=== PATIENT | male | born 2000 | race African-American/Black ===

== ENCOUNTER 2021-06-02 22:07 | Emergency (ER) | payer MEDICAID, SELFPAY ==
[2021-06-02 22:09] VITALS: BP 136/75; PULSE 85; RESP 18; TEMP 36.8; O2SAT 100; BMI 34.4
--- NOTE | 2021-06-02 22:13 | ECG_ITS ---
Test Reason : dizziness Blood Pressure : / mmHG Vent. Rate : 068 BPM Atrial Rate : 068 BPM P-R Int : 168 ms QRS Dur : 088 ms QT Int : 368 ms P-R-T Axes : 035 070 053 degrees QTc Int : 391 ms Normal sinus rhythm with sinus arrhythmia Normal ECG No previous ECGs available Referred By: Generic ED Physician Electronically Signed By:IRAIS KAN
--- NOTE | 2021-06-02 22:55 | ED_ITS ---
HPI - General Adult General Chief complaint: Dizziness Stated complaint: feels like he's going to pass out Time Seen by Provider: 06/02/21 22:34 Source: patient Mode of arrival: ambulatory History of Present Illness HPI narrative: 20-year-old male with a past medical history of substance abuse presenting to the ED complaining of lightheadedness, nausea, tremors, and feeling awful s/p taking 10 mg Percocet this afternoon followed by 8 mg Suboxone. Admits to Percocet abuse taking about six 10 mg daily. Reports is trying to go through his own detox. Denies other illicit drugs or EtOH. Denies SI/HI, CP/SOB, abdominal pain, vomiting, diarrhea Onset (ago): hour(s) Related Data Allergies Allergy/AdvReac Type Severity Reaction Status Date / Time No Known Allergies Allergy Verified 06/02/21 22:08 [No Known Allergies*] Review of Systems Verdana 4l Review of Systems: Verdana 4d Verdana 4d Constitutional: No Fever, No Chills, No Fatigue, No Malaise ENT/Mouth: No Ear Pain, No Nasal Congestion, No sore throat, No Swallowing Difficulty Eyes: No Eye Pain, No Swelling, No Redness, No Vision Changes Cardiovascular: No Chest Pain, No SOB, No Edema, No Palpitations Respiratory: No Cough, No Dyspnea Gastrointestinal: + Nausea, No Vomiting, No Diarrhea, No Constipation, No Abdominal pain Genitourinary: No Dysuria, No Urinary Frequency, No Flank Pain, No Urinary Flow Changes, No Hesitancy Musculoskeletal: No joint pain, No Myalgias, No Joint Swelling Skin: No Skin Lesions, No rash Neuro: No Weakness, No Numbness, No Paresthesias, No Headache, +lightheaded, +tremulous Psych: No Anxiety/Panic, No Depression, No SI/HI/AH/VH, No Social Issues Yes all other systems are reviewed and are negative Neurologic: Denies Abnormal speech present PMFSH Past Medical History Attestation statement: The following information was validated with the patient. Social History Social History Advance Directives: No Physical Exam Verdana 4l Vital Signs: Verdana 4d Verdana 4d Vital Signs: Verdana 4d Verdana 4Bd Last Vital Signs Verdana 4d Computer Assembler New 4d Computer Assembler New 4d Temp 96.8 F 06/03/21 00:47 4d Pulse 66 06/03/21 00:47 New 4d Resp 16 06/03/21 00:47 BP 150/78 H 06/03/21 00:47 Pulse Ox 100 06/03/21 00:47 BMI result Body Mass Index 34.4 Const: General: cooperative, alert, awake and anxious Orientation/consciousness: patient oriented x3 Limitations: no limitations HENMT: Head: Yes normal to inspection and Yes atraumatic Ears: hearing grossly normal bilaterally General nose exam: Normal external nose present Face and sinus: Yes normal facial exam Mouth: Normal oral and palatal mucosa present Throat: Yes posterior oropharynx normal, Yes tonsils normal and Yes uvula midline Eyes: General: appearance normal, both eyes and all related structures Pupils: Equal, round and reactive pupils present and Dilated pupils bilaterally EOM: EOMs intact bilaterally Neck: Neck: Yes normal visual inspection and Yes no meningeal signs Resp: Effort & Inspection: normal respiratory effort and no respiratory distress Auscultation: clear to auscultation bilaterally, no rales, no rhonchi and no wheezes Cardio: Rate: regular rate Heart sounds: S1 normal heart sound present and S2 normal heart sound present GI: Inspection: Yes normal to inspection Palpation (GI): Soft to palpation, nontender, no guarding and not rigid Skin: Rashes: no rashes Wounds: no wounds Neuro: General: patient oriented x3, tone normal, moves all extremities, no meningeal signs, no focal motor deficits and CN's II-XI intact bilaterally Cranial nerves: Yes CN's II-XII intact bilaterally, Yes Equal, round and reactive pupils present and Yes Bilaterally intact EOM present Cognition (Neuro): normal cognition Speech: No Abnormal speech present Gait exam (Neuro): Normal gait present Extrem: General: Yes normal to inspection and Yes no pedal edema Psych: Thought content: suicidality and no homicidality Course Course Course Narrative: -0043--no leukocytosis. H&H stable. Labs otherwise unremarkable. Troponin negative. Ethanol negative -patient was evaluated by care team and given resources for detox. -0048--patient reports mild symptomatic improvement after medications -tox screen positive for opiates, fentanyl, and cocaine. Discussed worrisome signs and symptoms and strict return precautions. Patient verbalized understanding and feels safe for discharge home at this time Medical Decision Making MDM Narrative Medical decision making narrative: 20-year-old male with a past medical history of substance abuse presenting to the ED complaining of lightheadedness, nausea, tremors, and feeling awful s/p taking 10 mg Percocet this afternoon followed by 8 mg Suboxone. On exam vital signs stable, NAD/nontoxic, no focal neuro deficits. Concern for precipitated withdrawal vs substance abuse. Low concern for ACS/PE/ICH. Will rule out metabolic/infectious etiology Plan: EKG, labs, UA, drug screen, Care team consult Medical Records Medical records reviewed: Yes I reviewed the patient's medical records. Lab Data Lab results reviewed: Yes I reviewed the patient's lab results. Result diagrams: 06/02/21 23:40 06/02/21 23:40 Labs: Lab Results 06/02/21 06/02/21 06/02/21 Range/Units 23:40 23:40 23:40 WBC 9.7 (4.8-10.8) X10*3/uL RBC 5.03 (4.60-5.80) X10*6/uL Hgb 15.4 (14.0-18.0) g/dl Hct 43.4 (42.0-52.0) % MCV 86.3 (80.0-98.0) fL MCH 30.6 (27.0-33.0) pg MCHC 35.5 (31.0-36.0) g/dl RDW 11.8 (11.0-16.0) % Plt Count 237 (160-400) X10*3/uL MPV 9.6 (9.4-12.4) fL Immature Gran % (Auto) 0.3 (0.0-0.4) % Neut % (Auto) 76.4 H (45-73) % Lymph % (Auto) 14.8 L (20-40) % [place] % (Auto) 6.3 (2-11) % Eos % (Auto) 2.0 (0-4) % Baso % (Auto) 0.2 (0-2) % Lymph # (Auto) 1.4 (1.2-4.9) X10*3/uL [place] # (Auto) 0.6 (0.1-1.2) X10*3/uL Eos # (Auto) 0.2 (0.0-0.4) X10*3/uL Baso # (Auto) 0.0 (0.0-0.2) X10*3/uL Abs Immat Gran (auto) 0.03 (0.00-0.03) X10*3/uL Absolute Neuts (auto) 7.5 (2.0-8.3) x10*3/uL Absolute Nucleated RBC 0.000 (0.0-0.012) X10*3/uL Nucleated RBC % (auto) 0.0 (0.0-0.2) /100WBC Sodium 137 (135-145) mmol/L Potassium 3.9 (3.3-5.1) mmol/L Chloride 102 (96-108) mmol/L Carbon Dioxide 28 (22-29) mmol/L Anion Gap 11 L (12-20) BUN 12 (9-16) mg/dL Creatinine 0.86 (0.5-1.4) mg/dL Estim Creat Clear Calc 154.2 Estimated GFR > 60 Random Glucose 110 (60-115) mg/dL Calcium 9.5 (8.4-10.2) mg/dL Magnesium 2.1 (1.6-2.6) mg/dL Total Bilirubin 0.4 (0.0-1.0) mg/dL Direct Bilirubin 0.2 (0.0-0.5) mg/dL AST 27 (5-37) U/L ALT 31 (0-40) U/L Alkaline Phosphatase 66 (39-117) U/L Troponin I High Sens (<3.5-35.0) ng/L Total Protein 7.1 (6.5-8.0) g/dL Albumin 4.3 (3.5-5.0) g/dL Urine Color Urine Appearance Urine pH (5.0-8.0) Ur Specific Gill (1.005-1.025) Urine Protein (NEG-TRACE) MG/DL Urine Glucose (UA) (NEG) MG/DL Urine Ketones (NEG) MG/DL Urine Blood (NEG) Urine Nitrite (NEG) Ur Leukocyte Esterase (NEG) Urine Opiates Screen (Not Detect) Urine Fentanyl Screen (Not Detect) Ur Barbiturates Screen (Not Detect) Ur Phencyclidine Scrn (Not Detect) Ur Amphetamines Screen (Not Detect) U Benzodiazepines Scrn (Not Detect) Urine Cocaine Screen (Not Detect) U Marijuana (THC) Screen (Not Detect) Ethyl Alcohol < 10 mg/dL 06/02/21 06/03/21 06/03/21 Range/Units 23:40 00:52 00:52 WBC (4.8-10.8) X10*3/uL RBC (4.60-5.80) X10*6/uL Hgb (14.0-18.0) g/dl Hct (42.0-52.0) % MCV (80.0-98.0) fL MCH (27.0-33.0) pg MCHC (31.0-36.0) g/dl RDW (11.0-16.0) % Plt Count (160-400) X10*3/uL MPV (9.4-12.4) fL Immature Gran % (Auto) (0.0-0.4) % Neut % (Auto) (45-73) % Lymph % (Auto) (20-40) % [place] % (Auto) (2-11) % Eos % (Auto) (0-4) % Baso % (Auto) (0-2) % Lymph # (Auto) (1.2-4.9) X10*3/uL [place] # (Auto) (0.1-1.2) X10*3/uL Eos # (Auto) (0.0-0.4) X10*3/uL Baso # (Auto) (0.0-0.2) X10*3/uL Abs Immat Gran (auto) (0.00-0.03) X10*3/uL Absolute Neuts (auto) (2.0-8.3) x10*3/uL Absolute Nucleated RBC (0.0-0.012) X10*3/uL Nucleated RBC % (auto) (0.0-0.2) /100WBC Sodium (135-145) mmol/L Potassium (3.3-5.1) mmol/L Chloride (96-108) mmol/L Carbon Dioxide (22-29) mmol/L Anion Gap (12-20) BUN (9-16) mg/dL Creatinine (0.5-1.4) mg/dL Estim Creat Clear Calc Estimated GFR Random Glucose (60-115) mg/dL Calcium (8.4-10.2) mg/dL Magnesium (1.6-2.6) mg/dL Total Bilirubin (0.0-1.0) mg/dL Direct Bilirubin (0.0-0.5) mg/dL AST (5-37) U/L ALT (0-40) U/L Alkaline Phosphatase (39-117) U/L Troponin I High Sens < 3.5 (<3.5-35.0) ng/L Total Protein (6.5-8.0) g/dL Albumin (3.5-5.0) g/dL Urine Color YELLOW Urine Appearance CLEAR Urine pH 8.0 (5.0-8.0) Ur Specific Gill 1.010 (1.005-1.025) Urine Protein NEG (NEG-TRACE) MG/DL Urine Glucose (UA) NEG (NEG) MG/DL Urine Ketones NEG (NEG) MG/DL Urine Blood NEG (NEG) Urine Nitrite NEG (NEG) Ur Leukocyte Esterase NEG (NEG) Urine Opiates Screen POSITIVE H (Not Detect) Urine Fentanyl Screen POSITIVE H (Not Detect) Ur Barbiturates Screen Not Detected (Not Detect) Ur Phencyclidine Scrn Not Detected (Not Detect) Ur Amphetamines Screen Not Detected (Not Detect) U Benzodiazepines Scrn Not Detected (Not Detect) Urine Cocaine Screen POSITIVE H (Not Detect) U Marijuana (THC) Not Detected (Not Detect) Screen Ethyl Alcohol mg/dL ECG Data Attestation: I personally reviewed and interpreted this ECG as follows: Interpretation: EKG normal sinus rhythm with sinus arrhythmia at a rate of 68. Pr interval 168. QTC 391. No STEMI/nonischemic Discharge Plan Discharge Clinical Impression: Opiate withdrawal, Polysubstance abuse Patient Disposition: Home, Self-Care Instructions: Opioid Withdrawal (ED), Narcotic Use Disorder (ED) Additional Instructions: Your blood work is reassuring today in the emergency department. You were given resources for detox. Please avoid drug and alcohol use it can kill you Do not take opiates and Suboxone together this puts you in withdrawal If you have thoughts of hurting yourself or others please return to the ED Patient follow-up in detox as discussed today. Referrals: [facility] [Physician] - 2 days Physician,Unknown J [Primary Care Provider] - 2 days
[2021-06-02 23:45] LABS: MANUAL DIFF FLAG NO
[2021-06-02 23:46] LABS: Basophils Percent Auto 0.2 % (0-2); Eosinophils Absolute Auto 0.2 X10*3/uL (0.0-0.4); Hematocrit 43.4 % (42.0-52.0); Hemoglobin 15.4 g/dl (14.0-18.0); Imm Gran Abs Auto 0.03 X10*3/uL (0.00-0.03); Imm Gran Pct Auto 0.3 % (0.0-0.4); Lymphocytes Absolute Auto 1.4 X10*3/uL (1.2-4.9); Lymphocytes Percent Auto 14.8 % (20-40); Mean Corpuscular HGB Conc 35.5 g/dl (31.0-36.0); Mean Corpuscular Hemoglobin 30.6 pg (27.0-33.0); Mean Corpuscular Volume 86.3 fL (80.0-98.0); Mean Platelet Volume 9.6 fL (9.4-12.4); Monocytes Absolute Auto 0.6 X10*3/uL (0.1-1.2); Monocytes Percent Auto 6.3 % (2-11); Neutrophils Absolute Auto 7.5 x10*3/uL (2.0-8.3); Neutrophils Percent Auto 76.4 % (45-73); Platelet Count 237 X10*3/uL (160-400); Red Blood Count 5.03 X10*6/uL (4.60-5.80); Red Cell Distribution Width 11.8 % (11.0-16.0); White Blood Count 9.7 X10*3/uL (4.8-10.8)
--- NOTE | 2021-06-02 23:49 | HO.SUDE ---
CARE team met with pt to complete substance use disorder evaluation. Pt was pleasant on approach and visibly uncomfortable. He reported that he took suboxone today after he had taken a few 10mg percocet tablets, which resulted in precipitated withdrawal. He reported that his intention was to feel better and stop using. He reported that percocets are the only substance that he uses and that he started using them two years ago. He had been taking them by mouth in pill form, however he recently began crushing and snorting them. His use is approx 60mg daily. He denied any history of detox admissions, though cited that he went through detox while he was in [facility] after being arrested for being in possession of a firearm and substances with intent to distribute. He reported that he is connected with [facility] [address] in [place] for suboxone maintenance, though it is not likely that he has been taking it consistently or appropriately. He denied history of mental illness or psychiatric admissions. Family history is positive for addiction, specifics not discussed. He reported that he lives by himself and has no family support at this time, but his girlfriend has been actively trying to help him get into recovery. Pt was given a list of detox facilities and information for [facility] and recommended to call them or drop by the center after 9am.
[2021-06-02] MEDS: 0.9 % Sodium Chloride 1,000 ML 999 ML IV (23:57)
[2021-06-03 00:01] LABS: Ethanol < 10 mg/dL
[2021-06-03] MEDS: ondansetron HCL 4 MG/2 ML VIAL IVPUSH (00:01)
[2021-06-03] MEDS: hydrOXYzine HCL 50 MG TABLET 25 MG PO (00:01)
[2021-06-03 00:04] LABS: Alanine Aminotransferase 31 U/L (0-40); Albumin Level 4.3 g/dL (3.5-5.0); Alkaline Phosphatase 66 U/L (39-117); Anion Gap 11 (12-20); Aspartate Amino Transferase 27 U/L (5-37); Bilirubin Direct 0.2 mg/dL (0.0-0.5); Bilirubin Total 0.4 mg/dL (0.0-1.0); Blood Urea Nitrogen 12 mg/dL (9-16); Calcium 9.5 mg/dL (8.4-10.2); Carbon Dioxide 28 mmol/L (22-29); Chloride 102 mmol/L (96-108); Creatinine Clr Calc Pharmacy 154.2; Estimated Glomerular Filt Rate > 60; Glucose Random 110 mg/dL (60-115); Magnesium 2.1 mg/dL (1.6-2.6); Potassium 3.9 mmol/L (3.3-5.1); Sodium 137 mmol/L (135-145); Total Protein 7.1 g/dL (6.5-8.0)
[2021-06-03 00:08] LABS: Troponin-I High Sensitivity < 3.5 ng/L (<3.5-35.0)
[2021-06-03 00:47] VITALS: BP 150/78; PULSE 66; RESP 16; TEMP 36; O2SAT 100
[2021-06-03 01:07] LABS: Appearance Urine CLEAR; Color Urine YELLOW; Glucose Urine UA NEG (NEG); Leukocyte Esterase Urine NEG (NEG); Nitrite Urine NEG (NEG); Urine Blood NEG (NEG); Urine Ketones NEG (NEG); Urine Protein NEG (NEG-TRACE)
[2021-06-03 01:21] LABS: Amphetamine Screen Urine Not Detected (Not Detect); Barbiturates, Urine Not Detected (Not Detect); Benzodiazepines Screen Urine Not Detected (Not Detect); Cannabinoid Screen Urine Not Detected (Not Detect); Cocaine Screen Urine POSITIVE (Not Detect); Fentanyl, urine POSITIVE (Not Detect); Opiate Screen Urine POSITIVE (Not Detect); Phencyclidine Screen Urine Not Detected (Not Detect)
[2021-06-03] MEDS: diphenhydrAMINE HCL 50 MG/ML VIAL 25 MG IVPUSH (01:24)
== END 2021-06-03 02:21 | disposition home or self-care (01) ==
PROVIDERS: Physician Assistant; Emergency Provider Emergency Medicine
DX: F11.13 Opioid abuse with withdrawal (principal); F19.10 Other psychoactive substance abuse, uncomplicated
CPT/HCPCS: 36415; 80048; 80076; 80307; 81003; 82077; 83735; 84484; 85025; 93005; 96361; 96374; 96375; 99283; 99284; J1200; J2405

== ENCOUNTER 2022-04-30 06:27 | Emergency (ER) | payer MEDICAID, SELFPAY ==
[2022-04-30 06:36] VITALS: BP 144/86; PULSE 112; O2SAT 98
--- NOTE | 2022-04-30 06:40 | ECG_ITS ---
Test Reason : PALPITATIONS Blood Pressure : / mmHG Vent. Rate : 094 BPM Atrial Rate : 094 BPM P-R Int : 162 ms QRS Dur : 088 ms QT Int : 346 ms P-R-T Axes : 066 066 023 degrees QTc Int : 432 ms Normal sinus rhythm Normal ECG When compared with ECG of 02-JUN-2021 22:12, No significant change was found Referred By: Generic ED Physician Electronically Signed By:DA PATEL MD
[2022-04-30 06:41] VITALS: BP 147/78; PULSE 99; RESP 16; TEMP 36.7; O2SAT 96; BMI 39.1
--- NOTE | 2022-04-30 07:16 | ED_ITS ---
HPI - Chest Pain General Chief Complaint: Chest Pain Stated Complaint: palpations chest pain Time Seen by Provider: 04/30/22 07:09 Source: patient Mode of arrival: EMS History of Present Illness HPI narrative: This is a 21-year-old male who uses cocaine and states that he used more than usual this morning at approximately 06:00 as stated that afterwards he developed chest pain with palpitations but denies any shortness of breath are weakness. Patient states he is feeling much better and has had complete resolution of symptoms at the time of my interview. Related Data Allergies Allergy/AdvReac Type Severity Reaction Status Date / Time No Known Allergies Allergy Verified 06/02/21 22:08 [No Known Allergies*] Review of Systems Review of Systems: Pertinent positives and negatives as stated in HPI. [facility] Past Medical History Source: nursing notes reviewed Social History Social History Advance Directives: No Advance Directives Information Provided: Yes Physical Exam Vital Signs: Vital Signs: Last Vital Signs Temp 98.0 F 04/30/22 06:41 Pulse 99 04/30/22 06:41 Resp 16 04/30/22 06:41 BP 147/78 H 04/30/22 06:41 Pulse Ox 96 04/30/22 06:41 O2 Del Method 04/30/22 06:41 BMI result Body Mass Index 39.1 VITAL SIGNS: Reviewed. GENERAL: Well developed, well nourished, in no acute distress. HEAD: Normocephalic/atraumatic EYES: PERRLA, EOMI EARS: Ext canals without abnormality OROPHARYNX: no oral lesions noted, posterior pharynx clear LUNGS: Normal breath sounds. No adventitious sounds or accessory muscle use. SpO2<96> CARDIOVASCULAR: Regular rate and rhythm without noted murmurs ABDOMEN: Soft, non-tender, non-distended with bowel sounds. MUSCULOSKELETAL: No tenderness, deformities, or effusions noted on gross inspection. EXTREMITIES: No cyanosis, clubbing or edema. SKIN: Inspection of the skin reveals no rashes NEUROLOGIC: Alert and oriented x 4. Strength and sensation to light touch were grossly intact x 4. Medical Decision Making Medical Decision Making MDM Narrative: 21-year-old male with cocaine associated chest pain/palpitations, EKG does not show any acute abnormalities on my interpretation, troponin is not detectable and patient has had complete resolution of his symptoms. He denies any SI and is discharged home in stable condition. Lab Data MDM Lab Attestation statement: I reviewed the patient's lab results. As discussed above Labs: Lab Results 04/30/22 Range/Units 08:26 Troponin I High Sens < 3.5 (<3.5-35.0) ng/L Independent Interpretation I performed an independent interpretation of an: EKG Interpretation: Normal sinus rhythm, HR-94, no STEMI, MN/QRS/QTC is within normal limits. Discharge Plan Discharge Clinical Impression: Cocaine use disorder, mild, abuse, Heart palpitations Patient Disposition: Home, Self-Care Instructions: Heart Palpitations (ED), Cocaine Abuse (ED) Additional Instructions: Stop using cocaine this will improve your incidence of chest pain and palpitations. Return to the ER for worsening symptoms.
[2022-04-30 09:06] LABS: Troponin-I High Sensitivity < 3.5 ng/L (<3.5-35.0)
== END 2022-04-30 09:55 | disposition home or self-care (01) ==
PROVIDERS: Emergency Provider Student in an Organized Health Care Education/Training Program
DX: R07.89 Other chest pain (principal); F14.10 Cocaine abuse, uncomplicated; R00.2 Palpitations
CPT/HCPCS: 36415; 84484; 93005; 99283

== ENCOUNTER 2022-09-24 14:18 | Outpatient (REF) | payer MEDICAID, SELFPAY | END 2022-09-24 14:19 | disposition home or self-care (01) | LOC: HO.LNP 14:18 | PROVIDERS: Visit Provider Nurse Practitioner Psychiatric/Mental Health | DX: F11.20 Opioid dependence, uncomplicated (principal) | CPT/HCPCS: 80305; 80348; 80362 ==

== ENCOUNTER → 2022-10-04 10:33 | Outpatient (BNVA) | payer MEDICAID, SELFPAY | PROVIDERS: Visit Provider Nurse Practitioner Psychiatric/Mental Health | DX: Z51.81 Encounter for therapeutic drug level monitoring (principal); F11.20 Opioid dependence, uncomplicated | CPT/HCPCS: 80305; 99212 ==

== ENCOUNTER → 2022-10-29 10:09 | Outpatient (BNVA) | payer MEDICAID, SELFPAY | PROVIDERS: Visit Provider Nurse Practitioner Psychiatric/Mental Health | DX: F11.20 Opioid dependence, uncomplicated (principal); Z51.81 Encounter for therapeutic drug level monitoring; Z79.899 Other long term (current) drug therapy | CPT/HCPCS: 80305; 99212 ==

== ENCOUNTER 2022-11-12 13:33 | Outpatient (AMB) | payer MEDICAID, SELFPAY ==
--- NOTE | 2022-11-12 13:33 | MHC.OFFVIS ---
Intake Vital Signs 11/12/22 13:39 BP 122/70 Blood Pressure Location Lt radial Position Sitting Pulse 86 Pulse Source Pulse Oximeter Pulse Oximetry (%) 97 Oxygen Delivery Method Room Air Intake Visit Reasons: MAT Visit Intake Note: the patient presents for a mat visit Upholstery Covers Inspector Required: No Allergies No Known Allergies [No Known Allergies*] Allergy (Verified 11/12/22 13:40) Do you need a note to return to daycare/school/sports/work: No HPI MAT Visit HPI Details patient presents for OUD treatment follow up Doing well with current dose, denies any side effects or cravings Has been spending time fishing no questions or concerns at this time Review of Systems Const Reports as per HPI and Reports no additional complaints Physical Exam Vital Signs: Last Vital Signs Pulse 86 11/12/22 13:39 BP 122/70 11/12/22 13:39 Pulse Ox 97 11/12/22 13:39 Oxygen Delivery Method Room Air 11/12/22 13:39 Const General: cooperative, healthy appearing and no acute distress Psych Appearance: grossly normal Speech and movement: Clear speech present Affect: normal affect Thought process: Normal thought process present Thought content: Normal thought content present Insight: Fair insight present (Psych) Judgement: Fair judgement present (Psych) Assessment & Plan Assessment & Plan (1) Opioid use disorder: Code(s): F11.90 - Opioid use, unspecified, uncomplicated Plan: Continue Suboxone at current dose Follow up 3 weeks Medications: Refilled buprenorphine-naloxone 8-2 mg (Suboxone) 1 film sublingual DAILY 21 ea 0RF Coding Level of Care Code Est Pt Level 3 (38349) Diagnoses Opioid use disorder F11.90
[2022-11-12 13:39] VITALS: BP 122/70; PULSE 86; O2SAT 97
== END 2022-11-12 14:10 | disposition home or self-care (01) ==
LOC: HO.HCC 13:33
PROVIDERS: Visit Provider Nurse Practitioner Psychiatric/Mental Health
DX: F11.90 Opioid use, unspecified, uncomplicated (principal)
CPT/HCPCS: 99213

== ENCOUNTER → 2022-11-12 13:33 | Outpatient (BNVA) | payer MEDICAID, SELFPAY | PROVIDERS: Visit Provider Nurse Practitioner Psychiatric/Mental Health | DX: Z51.81 Encounter for therapeutic drug level monitoring (principal); F11.20 Opioid dependence, uncomplicated | CPT/HCPCS: 99213 ==

== ENCOUNTER 2022-12-03 13:44 | Outpatient (AMB) | payer MEDICAID, SELFPAY ==
--- NOTE | 2022-12-03 13:55 | A.OFFVIS_ITS ---
Intake Vital Signs 12/03/22 13:59 BP 128/70 Blood Pressure Location Lt brachial Position Sitting Pulse 89 Pulse Oximetry (%) 97 Intake Visit Reasons: MAT Visit Allergies No Known Allergies [No Known Allergies*] Allergy (Verified 11/12/22 13:40) HPI MAT Visit HPI Details Pt presents for OUD treatment follow up Currently being prescribed Suboxone 8mg QD Denies any side effects related to medication Continues to do well with recovery No questions or concerns at this time Review of Systems Const Reports as per HPI and Reports no additional complaints Physical Exam Vital Signs: Last Vital Signs Pulse 89 12/03/22 13:59 BP 128/70 12/03/22 13:59 Pulse Ox 97 12/03/22 13:59 Const General: cooperative, healthy appearing and no acute distress Psych Appearance: grossly normal Speech and movement: Clear speech present Affect: normal affect Thought process: Normal thought process present Thought content: Normal thought content present Insight: Fair insight present (Psych) Judgement: Fair judgement present (Psych) Results AMB 14 Panel Urine Drug Screen Urine Marijuana (THC) Negative Last Edit by Fabi Hernandez RN on 12/03/22 14:2 8 Urine Cocaine Negative Last Edit by Fabi Hernandez RN on 12/03/22 14:28 Urine Morphine Negative Last Edit by Fabi Hernandez RN on 12/03/22 14:28 Urine Methamphetamine Negative Last Edit by Fabi Hernandez RN on 12/03/22 14:2 8 Urine Amphetamine Negative Last Edit by Fabi Hernandez RN on 12/03/22 14:28 Urine Benzodiazepine Negative Last Edit by Fabi Hernandez RN on 12/03/22 14:30 Urine Benzodiazepine previously reported as Positive Fabi Hernandez 12/03/22 14:30 Urine Barbiturates Negative Last Edit by Fabi Hernandez RN on 12/03/22 14:28 Urine Methadone Negative Last Edit by Fabi Hernandez RN on 12/03/22 14:28 Urine Buprenorphine Positive Last Edit by Fabi Hernandez RN on 12/03/22 14:28 Urine Tricyclic Antidepressant Negative Last Edit by Fabi Hernandez RN on 12/03/22 14:28 Urine MDMA Negative Last Edit by Fabi Hernandez RN on 12/03/22 14:28 Urine Oxycodone Negative Last Edit by Fabi Hernandez RN on 12/03/22 14:28 Urine Phencyclidine Negative Last Edit by Fabi Hernandez RN on 12/03/22 14:28 Urine Propoxyphene Negative Last Edit by Fabi Hernandez RN on 12/03/22 14:28 Results Reviewed Results Reviewed: Laboratory Last Values POC Urine Buprenorphine Positive 12/03/22 14:27 POC Urine Morphine Negative 12/03/22 14:27 POC Urine Oxycodone Negative 12/03/22 14:27 POC Urine Methadone Negative 12/03/22 14:27 POC Urine Propoxyphene Negative 12/03/22 14:27 POC Urine Barbiturates Negative 12/03/22 14:27 POC U Tricyclic Antidpr Negative 12/03/22 14:27 POC Urine PCP Negative 12/03/22 14:27 POC Ur Amphetamines Negative 12/03/22 14:27 POC Ur Methamphetamine Negative 12/03/22 14:27 POC Urine MDMA Negative 12/03/22 14:27 POC Ur Benzodiazepine Negative 12/03/22 14:27 POC Urine Cocaine Negative 12/03/22 14:27 POC Ur Marijuana (THC) Negative 12/03/22 14:27 Assessment & Plan Assessment & Plan (1) Opioid use disorder: Code(s): F11.90 - Opioid use, unspecified, uncomplicated Plan: * Continue Suboxone at current dose * Follow up 3 weeks Orders: Orders AMB 14 Panel Urine Drug Screen Today Z51.81 - Encounter for therapeutic drug level monitoring Medications: Refilled buprenorphine-naloxone 8-2 mg (Suboxone) 1 film sublingual DAILY 21 ea 0RF Coding Level of Care Code Est Pt Level 3 (35201) Diagnoses Opioid use disorder F11.90
[2022-12-03 13:59] VITALS: BP 128/70; PULSE 89; O2SAT 97
== END 2022-12-03 14:13 | disposition home or self-care (01) ==
LOC: HO.HCC 13:44
PROVIDERS: Visit Provider Nurse Practitioner Psychiatric/Mental Health
DX: Z51.81 Encounter for therapeutic drug level monitoring (principal); F11.90 Opioid use, unspecified, uncomplicated
CPT/HCPCS: 99213

== ENCOUNTER → 2022-12-03 13:44 | Outpatient (BNVA) | payer MEDICAID, SELFPAY | PROVIDERS: Visit Provider Nurse Practitioner Psychiatric/Mental Health | DX: Z51.81 Encounter for therapeutic drug level monitoring (principal); F11.20 Opioid dependence, uncomplicated | CPT/HCPCS: 80305; 99213 ==

== ENCOUNTER 2022-12-24 13:27 | Outpatient (AMB) | payer MEDICAID, SELFPAY ==
--- NOTE | 2022-12-24 13:28 | A.OFFVIS_ITS ---
Intake Vital Signs 12/24/22 13:36 BP 128/72 Blood Pressure Location Lt radial Position Sitting Pulse 80 Pulse Source Pulse Oximeter Pulse Oximetry (%) 96 Oxygen Delivery Method Room Air Intake Visit Reasons: MAT Visit Intake Note: The patient presents for a mat visit Security Dispatcher Required: No Allergies No Known Allergies [No Known Allergies*] Allergy (Verified 12/24/22 13:30) Do you need a note to return to daycare/school/sports/work: No HPI MAT Visit HPI Details Patient presents for follow-up. Currently prescribed Suboxone 8 mg daily. Doing well recovery. No questions or concerns at this time. Discussing some relationship issues and possibility of moving back in with his mother. Otherwise patient is doing very well Review of Systems Const Reports as per HPI and Reports no additional complaints Physical Exam Vital Signs: Last Vital Signs Pulse 80 12/24/22 13:36 BP 128/72 12/24/22 13:36 Pulse Ox 96 12/24/22 13:36 Oxygen Delivery Method Room Air 12/24/22 13:36 Const General: cooperative, healthy appearing and no acute distress Psych Appearance: grossly normal Speech and movement: Clear speech present Affect: normal affect Thought process: Normal thought process present Thought content: Normal thought content present Insight: Fair insight present (Psych) Judgement: Fair judgement present (Psych) Results AMB 14 Panel Urine Drug Screen Urine Marijuana (THC) Negative Last Edit by Radha Jameson CMA on 12/24/22 13:38 Urine Cocaine Negative Last Edit by Radha Jameson CMA on 12/24/22 13:38 Urine Morphine Negative Last Edit by Radha Jameson CMA on 12/24/22 13:38 Urine Methamphetamine Negative Last Edit by Radha Jameson CMA on 12/24/22 13:38 Urine Amphetamine Negative Last Edit by Radha Jameson CMA on 12/24/22 13:3 8 Urine Benzodiazepine Negative Last Edit by Radha Jameson CMA on 12/24/22 13:38 Urine Barbiturates Negative Last Edit by Radha Jameson CMA on 12/24/22 13: 38 Urine Methadone Negative Last Edit by Radha Jameson CMA on 12/24/22 13:38 Urine Buprenorphine Positive Last Edit by Radha Jameson CMA on 12/24/22 13 :38 Urine Tricyclic Antidepressant Negative Last Edit by Radha Jameson CMA on 12/24/22 13:38 Urine MDMA Negative Last Edit by Radha Jameson CMA on 12/24/22 13:38 Urine Oxycodone Negative Last Edit by Radha Jameson CMA on 12/24/22 13:38 Urine Phencyclidine Negative Last Edit by Radha Jameson CMA on 12/24/22 13 :38 Urine Propoxyphene Negative Last Edit by Radha Jameson CMA on 12/24/22 13: 38 Results Reviewed Results Reviewed: Laboratory Last Values POC Urine Buprenorphine Positive 12/24/22 13:30 POC Urine Morphine Negative 12/24/22 13:30 POC Urine Oxycodone Negative 12/24/22 13:30 POC Urine Methadone Negative 12/24/22 13:30 POC Urine Propoxyphene Negative 12/24/22 13:30 POC Urine Barbiturates Negative 12/24/22 13:30 POC U Tricyclic Antidpr Negative 12/24/22 13:30 POC Urine PCP Negative 12/24/22 13:30 POC Ur Amphetamines Negative 12/24/22 13:30 POC Ur Methamphetamine Negative 12/24/22 13:30 POC Urine MDMA Negative 12/24/22 13:30 POC Ur Benzodiazepine Negative 12/24/22 13:30 POC Urine Cocaine Negative 12/24/22 13:30 POC Ur Marijuana (THC) Negative 12/24/22 13:30 Assessment & Plan Assessment & Plan (1) Opioid use disorder: Code(s): F11.90 - Opioid use, unspecified, uncomplicated Plan: * Continue Suboxone at current dose * Follow up 4 weeks Orders: Orders AMB 14 Panel Urine Drug Screen Today Z51.81 - Encounter for therapeutic drug level monitoring Medications: Refilled buprenorphine-naloxone 8-2 mg (Suboxone) 1 film sublingual DAILY 30 ea 0RF Coding Level of Care Code Est Pt Level 3 (41610) Diagnoses Opioid use disorder F11.90
[2022-12-24 13:36] VITALS: BP 128/72; PULSE 80; O2SAT 96
== END 2022-12-24 13:56 | disposition home or self-care (01) ==
LOC: HO.HCC 13:27
PROVIDERS: Visit Provider Nurse Practitioner Psychiatric/Mental Health
DX: F11.90 Opioid use, unspecified, uncomplicated (principal); Z51.81 Encounter for therapeutic drug level monitoring
CPT/HCPCS: 99213

== ENCOUNTER → 2022-12-24 13:27 | Outpatient (BNVA) | payer MEDICAID, SELFPAY | PROVIDERS: Visit Provider Nurse Practitioner Psychiatric/Mental Health | DX: F11.20 Opioid dependence, uncomplicated (principal) | CPT/HCPCS: 80305; 99212; 99213 ==

== ENCOUNTER 2023-01-24 10:12 | Outpatient (AMB) | payer MEDICAID, SELFPAY ==
[2023-01-24 10:44] VITALS: BP 118/80; PULSE 76; O2SAT 97
--- NOTE | 2023-01-24 10:44 | A.OFFVIS_ITS ---
Intake Vital Signs 01/24/23 10:44 BP 118/80 Blood Pressure Location Lt brachial Position Sitting Pulse 76 Pulse Oximetry (%) 97 Intake Visit Reasons: MAT Visit Allergies No Known Allergies [No Known Allergies*] Allergy (Verified 12/24/22 13:30) HPI MAT Visit HPI Details Pt presents for OUD treatment follow up Currently being prescribed Suboxone 8mg QD Denies any side effects related to medication Continues to do well with recovery no questions or concerns Review of Systems Const Reports as per HPI and Reports no additional complaints Physical Exam Vital Signs: Last Vital Signs Pulse 76 01/24/23 10:44 BP 118/80 01/24/23 10:44 Pulse Ox 97 01/24/23 10:44 Const General: cooperative, healthy appearing and no acute distress Psych Appearance: grossly normal Speech and movement: Clear speech present Affect: normal affect Thought process: Normal thought process present Thought content: Normal thought content present Insight: Fair insight present (Psych) Judgement: Good judgement present (Psych) Assessment & Plan Assessment & Plan (1) Opioid use disorder: Code(s): F11.90 - Opioid use, unspecified, uncomplicated Plan: * Continue Suboxone at current dose * Follow up 4 weeks Medications: Refilled buprenorphine-naloxone 8-2 mg (Suboxone) 1 film sublingual DAILY 30 ea 0RF Coding Level of Care Code Est Pt Level 3 (93055) Diagnoses Opioid use disorder F11.90
== END 2023-01-24 11:13 | disposition home or self-care (01) ==
LOC: HO.HCC 10:12
PROVIDERS: Visit Provider Nurse Practitioner Psychiatric/Mental Health
DX: F11.90 Opioid use, unspecified, uncomplicated (principal)
CPT/HCPCS: 99213

== ENCOUNTER → 2023-01-24 10:12 | Outpatient (BNVA) | payer MEDICAID, SELFPAY | PROVIDERS: Visit Provider Nurse Practitioner Psychiatric/Mental Health | DX: Z51.81 Encounter for therapeutic drug level monitoring (principal); F11.20 Opioid dependence, uncomplicated | CPT/HCPCS: 99212 ==

== ENCOUNTER 2023-02-21 11:16 | Outpatient (AMB) | payer MEDICAID, SELFPAY ==
--- NOTE | 2023-02-21 11:16 | A.OFFVIS_ITS ---
Intake Vital Signs 02/21/23 11:21 BP 122/76 Blood Pressure Location Lt radial Position Sitting Pulse 84 Pulse Source Pulse Oximeter Pulse Oximetry (%) 97 Oxygen Delivery Method Room Air Intake Visit Reasons: MAT Visit Intake Note: the patient presents for a mat visit Stand Up Comedian Required: No Allergies No Known Allergies [No Known Allergies*] Allergy (Verified 02/21/23 11:21) Do you need a note to return to daycare/school/sports/work: No HPI MAT Visit HPI Details Pt presents for OUD treatment follow up Currently being prescribed Suboxone 8mg QD Denies any side effects related to medication, denies constipation. Reports he has been fishing a lot. States he likes to go alone, and that this is his stress relief. Continues to do well with recovery no questions or concerns Review of Systems Const Reports as per HPI and Reports no additional complaints Physical Exam Vital Signs: Last Vital Signs Pulse 84 02/21/23 11:21 BP 122/76 02/21/23 11:21 Pulse Ox 97 02/21/23 11:21 Oxygen Delivery Method Room Air 02/21/23 11:21 Const General: healthy appearing, no acute distress and well developed Orientation/consciousness: patient oriented x3 Resp Effort & Inspection: normal respiratory effort Skin General skin exam: no rashes or lesions noted Neuro General: patient oriented x3 Psych Appearance: grossly normal and well kempt Speech and movement: Clear speech present Affect: normal affect Thought content: Normal thought content present Assessment & Plan Assessment & Plan (1) Opioid use disorder: Code(s): F11.90 - Opioid use, unspecified, uncomplicated Plan: continue suboxone at current dose follow up 4 weeks Medications: Refilled buprenorphine-naloxone 8-2 mg (Suboxone) 1 film sublingual DAILY 30 ea 0RF Coding Level of Care Code Est Pt Level 3 (94343) Diagnoses Opioid use disorder F11.90
[2023-02-21 11:21] VITALS: BP 122/76; PULSE 84; O2SAT 97
== END 2023-02-21 11:30 | disposition home or self-care (01) ==
PROVIDERS: Visit Provider Nurse Practitioner Family
DX: F11.90 Opioid use, unspecified, uncomplicated (principal)
CPT/HCPCS: 99213

== ENCOUNTER → 2023-02-21 11:16 | Outpatient (BNVA) | payer MEDICAID, SELFPAY | PROVIDERS: Visit Provider Nurse Practitioner Psychiatric/Mental Health | DX: Z51.81 Encounter for therapeutic drug level monitoring (principal); F11.20 Opioid dependence, uncomplicated | CPT/HCPCS: 99212 ==

== ENCOUNTER 2023-04-11 10:53 | Outpatient (AMB) | payer MEDICAID, SELFPAY ==
--- NOTE | 2023-04-11 10:54 | A.OFFVIS_ITS ---
Intake Vital Signs 04/11/23 10:58 BP 116/70 Blood Pressure Location Lt radial Position Sitting Pulse 91 Pulse Source Pulse Oximeter Pulse Oximetry (%) 96 Oxygen Delivery Method Room Air Intake Visit Reasons: MAT Visit Intake Note: the patient presents for a mat visit Computer Training Specialist Required: No Allergies No Known Allergies [No Known Allergies*] Allergy (Verified 04/11/23 10:59) Do you need a note to return to daycare/school/sports/work: No HPI MAT Visit HPI Details Patient presents for CHRISTINE treatment and follow up Reports his insurance recently lapsed on him, states it is all set now. Reports that is why he missed appt last month Has no concerns concerns for recovery at this time Tolerating suboxone dose, denies side effects Review of Systems Const Reports as per HPI Physical Exam Vital Signs: Last Vital Signs Pulse 91 04/11/23 10:58 BP 116/70 04/11/23 10:58 Pulse Ox 96 04/11/23 10:58 Oxygen Delivery Method Room Air 04/11/23 10:58 Const General: cooperative and healthy appearing Resp Effort & Inspection: normal respiratory effort Skin General skin exam: no rashes or lesions noted Psych Appearance: grossly normal Mental Status: mental status grossly normal Affect: normal affect Attitude: cooperative Thought process: Normal thought process present Assessment & Plan Assessment & Plan (1) Opioid use disorder: Code(s): F11.90 - Opioid use, unspecified, uncomplicated Plan: Continue suboxone at current dose Follow up 4 weeks Call [facility] with questions, concerns, or for earlier appointment Medications: Refilled buprenorphine-naloxone 8-2 mg (Suboxone) 1 film sublingual DAILY 30 ea 0RF Coding Level of Care Code Est Pt Level 3 (22066) Diagnoses Opioid use disorder F11.90
[2023-04-11 10:58] VITALS: BP 116/70; PULSE 91; O2SAT 96
== END 2023-04-11 11:05 | disposition home or self-care (01) ==
PROVIDERS: Visit Provider Nurse Practitioner Family
DX: F11.90 Opioid use, unspecified, uncomplicated (principal)
CPT/HCPCS: 99213

== ENCOUNTER → 2023-04-11 10:53 | Outpatient (BNVA) | payer MEDICAID, SELFPAY | PROVIDERS: Visit Provider Nurse Practitioner Family | DX: F11.20 Opioid dependence, uncomplicated (principal) | CPT/HCPCS: 99212 ==

== ENCOUNTER 2023-05-10 11:06 | Outpatient (AMB) | payer MEDICAID, SELFPAY ==
--- NOTE | 2023-05-10 11:17 | MHC.AM.SUB ---
Intake Vital Signs 05/10/23 11:18 BP 120/72 Blood Pressure Location Lt brachial Position Sitting Pulse 93 Pulse Source Pulse Oximeter Pulse Oximetry (%) 95 Oxygen Delivery Method Room Air Intake Visit Reasons: MAT Visit Allergies No Known Allergies [No Known Allergies*] Allergy (Verified 04/11/23 10:59) HPI MAT Visit HPI Details Patient presents for CHRISTINE treatment and follow up Denies any concerns today for recovery, denies any cravings Tolerating suboxone well- taking 8mg daily, denies concern for side effects at this time Patient quiet and mildly difficult to engage in conversation Reports his holidays went well and were spent with family Review of Systems Const Reports as per HPI Physical Exam Const General: cooperative and healthy appearing Resp Effort & Inspection: normal respiratory effort Psych Appearance: grossly normal Mental Status: mental status grossly normal Speech and movement: Normal speech and movement present Assessment & Plan Assessment & Plan (1) Opioid use disorder: Code(s): F11.90 - Opioid use, unspecified, uncomplicated Plan: -Cont suboxone same dose, refilled. -Lab work ordered as he has not had done in 2 years -Follow up 4 weeks Orders: Orders Complete Blood Count Auto Diff Today F11.90 - Opioid use, unspecified, uncomplicated Comprehensive Met. Panel Today F11.90 - Opioid use, unspecified, uncomplicated Medications: Refilled buprenorphine-naloxone 8-2 mg (Suboxone) 1 film sublingual DAILY 30 ea 0RF Coding Level of Care Code Est Pt Level 3 (97627) Diagnoses Opioid use disorder F11.90
[2023-05-10 11:18] VITALS: BP 120/72; PULSE 93; O2SAT 95
== END 2023-05-10 11:43 | disposition home or self-care (01) ==
PROVIDERS: Visit Provider Nurse Practitioner Family
DX: F11.90 Opioid use, unspecified, uncomplicated (principal)
CPT/HCPCS: 99213

== ENCOUNTER 2023-05-10 11:06 | Outpatient (REF) | payer MEDICAID, SELFPAY ==
[2023-05-10 11:54] LABS: MANUAL DIFF FLAG NO
[2023-05-10 12:49] LABS: Basophils Percent Auto 0.4 % (0-2); Eosinophils Absolute Auto 0.1 X10*3/uL (0.0-0.4); Eosinophils Percent Auto 0.7 % (0-4); Hematocrit 46.3 % (42.0-52.0); Imm Gran Abs Auto 0.04 X10*3/uL (0.00-0.03); Imm Gran Pct Auto 0.5 % (0.0-0.4); Lymphocytes Absolute Auto 2.2 X10*3/uL (1.2-4.9); Lymphocytes Percent Auto 29.3 % (20-40); Mean Corpuscular HGB Conc 34.6 g/dl (31.0-36.0); Mean Corpuscular Hemoglobin 30.1 pg (27.0-33.0); Mean Platelet Volume 10.2 fL (9.4-12.4); Monocytes Absolute Auto 0.5 X10*3/uL (0.1-1.2); Monocytes Percent Auto 6.3 % (2-11); Neutrophils Absolute Auto 4.7 x10*3/uL (2.0-8.3); Neutrophils Percent Auto 62.8 % (45-73); Platelet Count 251 X10*3/uL (160-400); Red Blood Count 5.32 X10*6/uL (4.60-5.80); White Blood Count 7.4 X10*3/uL (4.8-10.8)
[2023-05-10 13:33] LABS: Alanine Aminotransferase 45 U/L (0-40); Albumin Level 4.2 g/dL (3.5-5.0); Alkaline Phosphatase 78 U/L (39-117); Anion Gap 8 (12-20); Aspartate Amino Transferase 25 U/L (5-37); Bilirubin Total 0.5 mg/dL (0.0-1.0); Blood Urea Nitrogen 10 mg/dL (9-16); Calcium 9.3 mg/dL (8.4-10.2); Carbon Dioxide 28 mmol/L (22-29); Chloride 105 mmol/L (96-108); Estimated Glomerular Filt Rate > 60; Glucose Random 90 mg/dL (60-115); Potassium 3.7 mmol/L (3.3-5.1); Sodium 137 mmol/L (135-145); Total Protein 7.6 g/dL (6.5-8.0)
== END 2023-05-10 11:07 | disposition home or self-care (01) ==
LOC: HO.LAB 11:06
PROVIDERS: Visit Provider Nurse Practitioner Family
DX: F11.20 Opioid dependence, uncomplicated (principal); Z51.81 Encounter for therapeutic drug level monitoring; Z79.899 Other long term (current) drug therapy
CPT/HCPCS: 36415; 80053; 85025; 99212

== ENCOUNTER 2023-05-12 12:13 | Emergency (ER) | payer MEDICAID, SELFPAY ==
[2023-05-12 12:17] VITALS: BP 135/75; PULSE 85; O2SAT 100
--- NOTE | 2023-05-12 12:19 | ECG_ITS ---
Test Reason : chest pain Blood Pressure : / mmHG Vent. Rate : 076 BPM Atrial Rate : 076 BPM P-R Int : 168 ms QRS Dur : 090 ms QT Int : 374 ms P-R-T Axes : 064 055 030 degrees QTc Int : 420 ms Normal sinus rhythm with sinus arrhythmia Normal ECG When compared with ECG of 30-APR-2022 06:32, No significant change was found Referred By: Generic ED Physician Electronically Signed By:DA PATEL MD
== END 2023-05-12 13:57 | disposition left against medical advice (07) ==
LOC: HO.ED 13:52
PROVIDERS: Emergency Provider Emergency Medicine
DX: R07.9 Chest pain, unspecified (principal)
CPT/HCPCS: 93005; 99282; 99283

== ENCOUNTER → 2023-05-12 12:19 | Outpatient (BNV) | payer MEDICAID, SELFPAY | PROVIDERS: Emergency Provider Emergency Medicine; Visit Provider Internal Medicine Cardiovascular Disease | DX: R07.9 Chest pain, unspecified (principal) | CPT/HCPCS: 93010 ==

== ENCOUNTER 2023-06-16 11:10 | Outpatient (AMB) | payer MEDICAID, SELFPAY ==
--- NOTE | 2023-06-16 11:18 | MHC.AM.SUB ---
Intake Vital Signs 06/16/23 11:19 Height 5 ft 8 in Weight 276 lb 8 oz BMI 42.0 BP 124/78 Blood Pressure Location Lt radial Position Sitting Pulse 89 Pulse Source Pulse Oximeter Pulse Oximetry (%) 97 Oxygen Delivery Method Room Air Comment weight with shoes Intake Visit Reasons: Walk in Intake Note: the patient presents for a mat visit Computer Technical Specialist Required: No Allergies No Known Allergies [No Known Allergies*] Allergy (Verified 06/16/23 11:21) Do you need a note to return to daycare/school/sports/work: No HPI Walk in HPI Details Patient presents for CHRISTINE treatment and follow up He presented to the ED last month (May) for chest pain following cocaine use He reports that incident scared him and he no longer has the desire to use cocaine He reports he is not sure why he did it in the first place Denies concerns regarding his suboxone dose, denies dreams of using, withdrawal symptoms, or cravings for opiates Review of Systems Const Reports as per HPI Physical Exam Vital Signs: Last Vital Signs Pulse 89 06/16/23 11:19 BP 124/78 06/16/23 11:19 Pulse Ox 97 06/16/23 11:19 Oxygen Delivery Method Room Air 06/16/23 11:19 BMI result Body Mass Index 42.0 Const General: cooperative and no acute distress Resp Effort & Inspection: normal respiratory effort and able to speak in complete sentences Skin General skin exam: no rashes or lesions noted Psych Appearance: grossly normal Mental Status: mental status grossly normal Speech and movement: Normal speech and movement present Affect: normal affect Attitude: cooperative Results AMB 14 Panel Urine Drug Screen Urine Marijuana (THC) Negative Last Edit by Radha Jameson CMA on 06/16/23 11:36 Urine Cocaine Negative Last Edit by Radha Jameson CMA on 06/16/23 11:36 Urine Morphine Negative Last Edit by Radha Jameson CMA on 06/16/23 11:36 Urine Methamphetamine Negative Last Edit by Radha Jameson CMA on 06/16/23 11:36 Urine Amphetamine Negative Last Edit by Radha Jameson CMA on 06/16/23 11:36 Urine Benzodiazepine Negative Last Edit by Radha Jameson CMA on 06/16/23 11:36 Urine Barbiturates Negative Last Edit by Radha Jameson CMA on 06/16/23 11:36 Urine Methadone Negative Last Edit by Radha Jameson CMA on 06/16/23 11:36 Urine Buprenorphine Positive Last Edit by Radha Jameson CMA on 06/16/23 11:36 Urine Tricyclic Antidepressant Negative Last Edit by Radha Jameson CMA on 06/16/23 11:36 Urine MDMA Negative Last Edit by Radha Jameson CMA on 06/16/23 11:36 Urine Oxycodone Negative Last Edit by Radha Jameson CMA on 06/16/23 11:36 Urine Phencyclidine Negative Last Edit by Radha Jameson CMA on 06/16/23 11:36 Urine Propoxyphene Negative Last Edit by Radha Jameson CMA on 06/16/23 11:36 Results Reviewed Results Reviewed: Laboratory Last Values POC Urine Buprenorphine Positive 06/16/23 11:24 POC Urine Morphine Negative 06/16/23 11:24 POC Urine Oxycodone Negative 06/16/23 11:24 POC Urine Methadone Negative 06/16/23 11:24 POC Urine Propoxyphene Negative 06/16/23 11:24 POC Urine Barbiturates Negative 06/16/23 11:24 POC U Tricyclic Antidpr Negative 06/16/23 11:24 POC Urine PCP Negative 06/16/23 11:24 POC Ur Amphetamines Negative 06/16/23 11:24 POC Ur Methamphetamine Negative 06/16/23 11:24 POC Urine MDMA Negative 06/16/23 11:24 POC Ur Benzodiazepine Negative 06/16/23 11:24 POC Urine Cocaine Negative 06/16/23 11:24 POC Ur Marijuana (THC) Negative 06/16/23 11:24 Assessment & Plan Assessment & Plan (1) Opioid use disorder: Code(s): F11.90 - Opioid use, unspecified, uncomplicated Plan: -Continue suboxone same dose 8mg daily -Mass pat reviewed -Risk reduction discussed -Instructed to call [facility] with questions or concerns -Follow up 4 weeks Orders: Orders AMB 14 Panel Urine Drug Screen Today Z51.81 - Encounter for therapeutic drug level monitoring Medications: Refilled buprenorphine-naloxone 8-2 mg (Suboxone) 1 film sublingual DAILY 30 ea 0RF Coding Level of Care Code Est Pt Level 3 (36464) Diagnoses Opioid use disorder F11.90
[2023-06-16 11:19] VITALS: BP 124/78; PULSE 89; O2SAT 97; BMI 42.0
== END 2023-06-16 11:45 | disposition home or self-care (01) ==
PROVIDERS: Visit Provider Nurse Practitioner Family
DX: Z51.81 Encounter for therapeutic drug level monitoring (principal); F11.90 Opioid use, unspecified, uncomplicated
CPT/HCPCS: 99213

== ENCOUNTER → 2023-06-16 11:10 | Outpatient (BNVA) | payer MEDICAID, SELFPAY | PROVIDERS: Visit Provider Nurse Practitioner Family | DX: Z51.81 Encounter for therapeutic drug level monitoring (principal); F11.20 Opioid dependence, uncomplicated | CPT/HCPCS: 80305; 99212 ==

== ENCOUNTER 2023-07-14 11:17 | Outpatient (AMB) | payer MEDICAID, SELFPAY ==
--- NOTE | 2023-07-14 11:18 | MHC.AM.SUB ---
Intake Vital Signs 07/14/23 11:24 BP 120/78 Blood Pressure Location Lt radial Position Sitting Pulse 84 Pulse Source Pulse Oximeter Pulse Oximetry (%) 97 Oxygen Delivery Method Room Air Intake Visit Reasons: MAT Intake Note: the patient present s for a mat visit Accounting Manager Controller Required: No Allergies No Known Allergies [No Known Allergies*] Allergy (Verified 06/16/23 11:21) Do you need a note to return to daycare/school/sports/work: No HPI MAT HPI Details Pt presents for MAT appointment Reports he has been doing well Is not working, states he mostly plays video games in his down time Tolerating suboxone dose well (8mg buprenorphine daily) Denies cravings, withdrawal symptoms No concerns for side effects Review of Systems Const Reports as per HPI Physical Exam Vital Signs: Last Vital Signs Pulse 84 07/14/23 11:24 BP 120/78 07/14/23 11:24 Pulse Ox 97 07/14/23 11:24 Oxygen Delivery Method Room Air 07/14/23 11:24 Const General: cooperative and healthy appearing Resp Effort & Inspection: normal respiratory effort Psych Appearance: grossly normal and well kempt Mental Status: mental status grossly normal Speech and movement: Normal speech and movement present Affect: normal affect Attitude: cooperative Assessment & Plan Assessment & Plan (1) Opioid use disorder: Code(s): F11.90 - Opioid use, unspecified, uncomplicated Plan: -Mass pat reviewed -Continue suboxone at current dose -Follow up 4 weeks Medications: Refilled buprenorphine-naloxone 8-2 mg (Suboxone) 1 film sublingual DAILY 30 ea 0RF Coding Level of Care Code Est Pt Level 3 (08391) Diagnoses Opioid use disorder F11.90
[2023-07-14 11:24] VITALS: BP 120/78; PULSE 84; O2SAT 97
== END 2023-07-14 11:30 | disposition home or self-care (01) ==
PROVIDERS: Visit Provider Nurse Practitioner Family
DX: F11.90 Opioid use, unspecified, uncomplicated (principal)
CPT/HCPCS: 99213

== ENCOUNTER → 2023-07-14 11:17 | Outpatient (BNVA) | payer MEDICAID, SELFPAY | PROVIDERS: Visit Provider Nurse Practitioner Family | DX: F11.20 Opioid dependence, uncomplicated (principal) | CPT/HCPCS: 99212 ==

== ENCOUNTER 2023-08-18 13:14 | Outpatient (REF) | payer MEDICAID, SELFPAY ==
[2023-08-18 14:23] LABS: Estimated Average Glucose 94 mg/dL; Hemoglobin A1c % 4.9 % (<6.0)
== END 2023-08-18 13:15 | disposition home or self-care (01) ==
LOC: HO.LAB 13:14
PROVIDERS: Visit Provider Nurse Practitioner Family
DX: Z13.1 Encounter for screening for diabetes mellitus (principal); F11.90 Opioid use, unspecified, uncomplicated
CPT/HCPCS: 36415; 83036; 99212

== ENCOUNTER 2023-08-18 13:14 | Outpatient (AMB) | payer MEDICAID, SELFPAY ==
--- NOTE | 2023-08-18 13:13 | A.OFFVISCC_ITS ---
Vital Signs 08/18/23 13:15 BP 122/74 Blood Pressure Location Rt brachial Position Sitting Pulse 78 Pulse Source Pulse Oximeter Pulse Oximetry (%) 98 Oxygen Delivery Method Room Air Intake Visit Reasons: MAT Allergies No Known Allergies [No Known Allergies*] Allergy (Verified 08/18/23 13:13) HPI HPI MAT: Details: Patient presents for MAT visit States he got on the waiting list for [facility] PCP (3-6 months long) Feels as though he needs to get checked out because he has not seen a PCP in years Has no recovery concerns at this time Tolerating 8mg suboxone daily well- no side effects Patient difficult to engage in conversation stating he has nothing new going on HPI Comments Details: Patient presents for MAT visit Review of Systems Const Reports as per HPI Physical Exam Vital Signs: Last Vital Signs Pulse 78 08/18/23 13:15 BP 122/74 08/18/23 13:15 Pulse Ox 98 08/18/23 13:15 Oxygen Delivery Method Room Air 08/18/23 13:15 Const General: cooperative and no acute distress Resp Effort & Inspection: normal respiratory effort and able to speak in complete sentences Psych Appearance: grossly normal Mental Status: mental status grossly normal Speech and movement: Normal speech and movement present Affect: Indifferent affect present Attitude: cooperative and Avoids eye contact (attititude/behavior) Thought process: Normal thought process present Assessment & Plan Assessment & Plan (1) Screening for diabetes mellitus: Code(s): Z13.1 - Encounter for screening for diabetes mellitus Category: Medical Plan: -Check A1C, discussed with patient he would receive a call for abnormal result (2) Opioid use disorder: Code(s): F11.90 - Opioid use, unspecified, uncomplicated Category: Medical Plan: -MassPat reviewed -Continue suboxone 8mg daily -Follow up 4 weeks Orders: Orders Hemoglobin A1c Today Z13.1 - Encounter for screening for diabetes mellitus Medications: Refilled buprenorphine-naloxone 8-2 mg (Suboxone) 1 film sublingual DAILY 30 ea 0RF
[2023-08-18 13:15] VITALS: BP 122/74; PULSE 78; O2SAT 98
== END 2023-08-18 13:30 | disposition home or self-care (01) ==
PROVIDERS: Visit Provider Nurse Practitioner Family
DX: F11.90 Opioid use, unspecified, uncomplicated (principal); Z13.1 Encounter for screening for diabetes mellitus
CPT/HCPCS: 99214

== ENCOUNTER 2023-09-28 13:30 | Outpatient (AMB) | payer MEDICAID, SELFPAY ==
--- NOTE | 2023-09-28 13:31 | MHC.AM.SUB ---
Vital Signs 09/28/23 13:33 BP 148/96 H Blood Pressure Location Rt brachial Position Sitting Pulse 99 Pulse Source Pulse Oximeter Pulse Oximetry (%) 97 Oxygen Delivery Method Room Air Intake Visit Reasons: MAT Visit Allergies No Known Allergies [No Known Allergies*] Allergy (Verified 08/18/23 13:13) HPI HPI MAT Visit: Details: Patient presents for MAT appointment Has no concerns for recovery Still waiting on waitlist for PCP at [facility] Has no concerns for recovery Taking 8mg suboxone daily- tolerating well, no side effects or withdrawal symptoms HPI Comments Details: Patient presents for MAT visit Review of Systems Const Reports as per HPI Physical Exam Vital Signs: Last Vital Signs Pulse 99 09/28/23 13:33 BP 148/96 H 09/28/23 13:33 Pulse Ox 97 09/28/23 13:33 Oxygen Delivery Method Room Air 09/28/23 13:33 Const General: cooperative and no acute distress Resp Effort & Inspection: normal respiratory effort and able to speak in complete sentences Psych Appearance: grossly normal Mental Status: mental status grossly normal Speech and movement: Normal speech and movement present Affect: normal affect Attitude: cooperative Thought process: Normal thought process present Assessment & Plan Assessment & Plan (1) Opioid use disorder: Code(s): F11.90 - Opioid use, unspecified, uncomplicated Category: Medical Plan: -Mass pat reviewed -No refill due at this time, reviewed with him to call when his refill is due and to provide clinic 24 hours for refill request -Follow up 1 month (2) Screening for diabetes mellitus: Code(s): Z13.1 - Encounter for screening for diabetes mellitus Category: Medical Plan: -Reviewed A1c and blood glucose results with patient
[2023-09-28 13:33] VITALS: BP 148/96; PULSE 99; O2SAT 97
== END 2023-09-28 13:48 | disposition home or self-care (01) ==
PROVIDERS: Visit Provider Nurse Practitioner Family
DX: F11.90 Opioid use, unspecified, uncomplicated (principal); Z13.1 Encounter for screening for diabetes mellitus
CPT/HCPCS: 99213

== ENCOUNTER → 2023-09-28 13:30 | Outpatient (BNVA) | payer MEDICAID, SELFPAY | PROVIDERS: Visit Provider Nurse Practitioner Family | DX: F11.20 Opioid dependence, uncomplicated (principal); Z13.1 Encounter for screening for diabetes mellitus; Z51.81 Encounter for therapeutic drug level monitoring; Z79.899 Other long term (current) drug therapy | CPT/HCPCS: 99212 ==

== ENCOUNTER 2023-10-01 20:55 | Emergency (ER) | payer MEDICAID, SELFPAY ==
[2023-10-01 20:56] VITALS: BP 152/103; PULSE 105; RESP 20; TEMP 36.6; O2SAT 99; BMI 39.5
[2023-10-01 23:39] VITALS: PULSE 86; RESP 16; TEMP 36.9; O2SAT 199
[2023-10-02] VITALS (12 sets, daily range): BP systolic 143–169; BP diastolic 73–93; PULSE 82–140; RESP 10–22; TEMP 37.1; O2SAT 97–100
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
[2023-10-02] MEDS: ondansetron HCL 4 MG/2 ML VIAL IVPUSH (01:30)
[2023-10-02] MEDS: Diphth,Pertus(ACell),Tet Adult 0.5 ML SYRINGE IM (01:35)
[2023-10-02] MEDS: Ketamine HCl/NS 50 MG/5 ML SYRINGE 200 MG IVPUSH (01:35)
== END 2023-10-02 02:58 | disposition home or self-care (01) ==
PROVIDERS: Emergency Provider Emergency Medicine
DX: S41.112A Laceration without foreign body of left upper arm, initial encounter (principal); W22.8XXA Striking against or struck by other objects, initial encounter; Z23 Encounter for immunization; Y93.19 Activity, other involving water and watercraft; Y92.814 Boat as the place of occurrence of the external cause; Y99.9 Unspecified external cause status
CPT/HCPCS: 12007; 90471; 90715; 96374; 96375; 99152; 99284; J2405

== ENCOUNTER 2023-10-04 10:55 | Emergency (ER) | payer MEDICAID, SELFPAY ==
[2023-10-04 10:59] VITALS: BP 125/71; PULSE 66; RESP 16; TEMP 37.2; O2SAT 98; BMI 40.7
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
[2023-10-04 13:30] VITALS: BP 145/91; PULSE 62; RESP 18; TEMP 36.8; O2SAT 99
== END 2023-10-04 13:32 | disposition home or self-care (01) ==
PROVIDERS: Emergency Provider Emergency Medicine
DX: S41.111D Laceration without foreign body of right upper arm, subsequent encounter (principal); X58.XXXD Exposure to other specified factors, subsequent encounter
CPT/HCPCS: 99282

== ENCOUNTER 2023-10-10 09:41 | Emergency (ER) | payer MEDICAID, SELFPAY | END 2023-10-10 10:54 | disposition left against medical advice (07) | LOC: HO.ED 10:40 | PROVIDERS: Emergency Provider Emergency Medicine | DX: Z48.02 Encounter for removal of sutures (principal); Z53.21 Procedure and treatment not carried out due to patient leaving prior to being seen by health care provider ==

== ENCOUNTER 2023-10-20 13:00 | Outpatient (AMB) | payer MEDICAID, SELFPAY ==
--- NOTE | 2023-10-20 13:05 | MHC.AM.SUB ---
Intake Visit Reasons: MAT Tele Allergies No Known Allergies [No Known Allergies*] Allergy (Verified 10/04/23 11:03) [facility] HPI MAT Tele: Details: Patient presents for OUD treatment and follow up via telehealth Reports he has been doing well, continues to wait for his first PCP appt Tolerating 8mg suboxone daily Denies cravings or withdrawal symptoms No concerns for recovery at this time Review of Systems Const Reports as per HPI Telehealth Telehealth Telehealth Platform: Telephone Location of provider rendering services: practice address Location of patient: address on file Patient Identification confirmed using: Name, : Yes Telehealth method: voice only Patient verbally consented to treatment: Yes Patient verbally consented to billing insurance company: Yes Patient informed of any privacy concerns related to visit: Yes Minutes spent on Phone/Video with Pt.: 10 Assessment & Plan Assessment & Plan (1) Opioid use disorder: Code(s): F11.90 - Opioid use, unspecified, uncomplicated Category: Medical Plan: -Seb matthew reviewed -RX refill sent to pharmacy -Follow up 1 month Medications: Refilled buprenorphine-naloxone 8-2 mg (Suboxone) 1 film sublingual DAILY 30 ea 0RF
== END 2023-10-20 13:14 | disposition home or self-care (01) ==
PROVIDERS: Visit Provider Nurse Practitioner Family
DX: F11.90 Opioid use, unspecified, uncomplicated (principal)
CPT/HCPCS: 99212

== ENCOUNTER → 2023-10-20 13:00 | Outpatient (BNVA) | payer MEDICAID, SELFPAY | PROVIDERS: Visit Provider Nurse Practitioner Family ==

== ENCOUNTER 2024-01-06 08:57 | Outpatient (AMB) | payer MEDICAID, SELFPAY ==
--- NOTE | 2024-01-06 08:59 | A.OFFVISCC_ITS ---
Intake Visit Reasons: Tele Allergies No Known Allergies [No Known Allergies*] Allergy (Verified 10/04/23 11:03) HPI HPI Tele: Details: Patient presents for follow up via telehealth Reporting he lost his license and is unable to make it to visits Doing well with recovery tolerating current dose Review of Systems Const Reports as per HPI and Reports no additional complaints Telehealth Telehealth Telehealth Platform: Telephone Location of provider rendering services: practice address Location of patient: address on file Patient Identification confirmed using: Name, : Yes Telehealth method: voice only Patient verbally consented to treatment: Yes Patient verbally consented to billing insurance company: Yes Minutes spent on Phone/Video with Pt.: 15 Assessment & Plan Assessment & Plan (1) Opioid use disorder, moderate, in sustained remission: Code(s): F11.21 - Opioid dependence, in remission Category: Medical Plan: * continue suboxone at current dose * follow up 2 months
== END 2024-01-06 09:14 | disposition home or self-care (01) ==
PROVIDERS: Visit Provider Nurse Practitioner Psychiatric/Mental Health
DX: F11.21 Opioid dependence, in remission (principal)
CPT/HCPCS: 99213

== ENCOUNTER → 2024-01-06 08:57 | Outpatient (BNVA) | payer MEDICAID, SELFPAY | PROVIDERS: Visit Provider Nurse Practitioner Psychiatric/Mental Health ==

== ENCOUNTER 2024-02-15 10:50 | Outpatient (AMB) | payer MEDICAID, SELFPAY ==
--- NOTE | 2024-02-15 11:14 | A.OFFVISCC_ITS ---
Intake Visit Reasons: MAT Office Allergies No Known Allergies [No Known Allergies*] Allergy (Verified 10/04/23 11:03) HPI HPI MAT Office: Details: Patient presents as walk in reporting increasing anxiety and panic has been to the ED numerous times with panic and anxiety sx reports no findings open to SSRI trial Review of Systems Const Reports as per HPI Physical Exam Const General: cooperative, anxious and well groomed Orientation/consciousness: patient oriented x3 Limitations: no limitations Neuro General: patient oriented x3 Assessment & Plan Assessment & Plan (1) Opioid use disorder, moderate, in sustained remission: Code(s): F11.21 - Opioid dependence, in remission Category: Medical Plan: * continue suboxone * trial sertraline --dose, side effects discussed * follow up 3 weeks Medications: New hydroxyzine HCl 50 mg PO TID PRN 90 tabs 0RF anxiety sertraline take one tab daily for one week then increase to two tabs daily 25 mg PO DAILY 45 tabs 0RF Discontinued cephalexin Discontinued Reason: Patient Completed Course 500 mg PO QID 5 days 20 caps 0RF
== END 2024-02-15 11:50 | disposition home or self-care (01) ==
PROVIDERS: Visit Provider Nurse Practitioner Psychiatric/Mental Health
DX: F11.21 Opioid dependence, in remission (principal)
CPT/HCPCS: 99214

== ENCOUNTER → 2024-02-15 10:50 | Outpatient (BNVA) | payer MEDICAID, SELFPAY | PROVIDERS: Visit Provider Nurse Practitioner Psychiatric/Mental Health | DX: F11.21 Opioid dependence, in remission (principal) | CPT/HCPCS: 99212 ==

== ENCOUNTER 2024-03-09 11:26 | Outpatient (AMB) | payer MEDICAID, SELFPAY ==
--- NOTE | 2024-03-09 11:56 | A.OFFVISCC_ITS ---
Vital Signs 03/12/24 11:40 BP 140/88 H Blood Pressure Location Rt brachial Position Sitting Pulse 88 Intake Visit Reasons: MAT Allergies No Known Allergies [No Known Allergies*] Allergy (Verified 10/04/23 11:03) HPI HPI MAT: Details: Patient presents for follow up CHRISTINE and SOHA Started Sertaline 50mg daily and hydroxyzine Reports he stopped the sertraline recently as he did not know if it was working hydroxyzine, effective--however it made him sleepy. bought Klonopin off the street and used for anxiety --effective discussed risk associated with taking non prescribed medications, discussed risk of developing dependance on klonopin and how this will further complicate his current anxiety sx He is somewhat guarded when discussing triggers for anxiety he does report moving from living situation which he states was contributing to anxiety sx Denies any issues related to recovery tolerating suboxone dose Review of Systems Const Reports as per HPI Physical Exam Const General: cooperative Nutritional Appearance: overweight Orientation/consciousness: patient oriented x3 Limitations: no limitations Neuro General: patient oriented x3 Psych Affect: normal affect Attitude: Guarded attititude/behavior present (at times ) Thought process: Normal thought process present Thought content: Normal thought content present Insight: Fair insight present (Psych) Judgement: Fair judgement present (Psych) Assessment & Plan Assessment & Plan (1) Opioid use disorder, moderate, in sustained remission: Code(s): F11.21 - Opioid dependence, in remission Category: Medical Plan: * continue suboxone at current dose (2) Generalized anxiety disorder: Code(s): F41.1 - Generalized anxiety disorder Category: Medical Plan: * continue sertraline * trial propranolol 10mg BID * follow up 10 days Medications: New propranolol 10 mg PO BID 20 tabs 0RF sertraline 50 mg PO DAILY 30 tabs 0RF Refilled buprenorphine-naloxone 8-2 mg (Suboxone) 1 film sublingual DAILY 30 ea 1RF Discontinued hydroxyzine HCl Discontinued Reason: Patient no longer taking 50 mg PO TID PRN 90 tabs 0RF anxiety sertraline take one tab daily for one week then increase to two tabs daily Discontinued Reason: Doctor's Order 25 mg PO DAILY 45 tabs 0RF
[2024-03-12 11:40] VITALS: BP 140/88; PULSE 88
== END 2024-03-09 12:11 | disposition home or self-care (01) ==
PROVIDERS: Visit Provider Nurse Practitioner Psychiatric/Mental Health
DX: F11.21 Opioid dependence, in remission (principal); F41.1 Generalized anxiety disorder
CPT/HCPCS: 99214

== ENCOUNTER → 2024-03-09 11:26 | Outpatient (BNVA) | payer MEDICAID, SELFPAY | PROVIDERS: Visit Provider Nurse Practitioner Psychiatric/Mental Health | DX: F11.21 Opioid dependence, in remission (principal); F41.1 Generalized anxiety disorder | CPT/HCPCS: 99212 ==

== ENCOUNTER 2024-03-19 13:32 | Outpatient (AMB) | payer MEDICAID, SELFPAY ==
--- NOTE | 2024-03-19 13:42 | A.OFFVISCC_ITS ---
Intake Visit Reasons: MAT Allergies No Known Allergies [No Known Allergies*] Allergy (Verified 10/04/23 11:03) HPI HPI MAT: Details: Patient presents for follow up via telehealth Started propranolol following last visit no side effects from medication Has been more consistent with medication--feels it has been helpful asking appropriate questions related to alcohol and medications --education provided Review of Systems Const Reports as per HPI and Reports no additional complaints Telehealth Telehealth Telehealth Platform: Telephone Location of provider rendering services: practice address Location of patient: address on file Patient Identification confirmed using: Name, : Yes Telehealth method: voice only Patient verbally consented to treatment: Yes Patient verbally consented to billing insurance company: Yes Minutes spent on Phone/Video with Pt.: 15 Assessment & Plan Assessment & Plan (1) Generalized anxiety disorder: Code(s): F41.1 - Generalized anxiety disorder Category: Medical Plan: * continue sertaline at current dose * refilled propranolol (2) Opioid use disorder, moderate, in sustained remission: Code(s): F11.21 - Opioid dependence, in remission Category: Medical Plan: * continue suboxone at current dose * follow up 4 weeks Medications: Refilled propranolol 10 mg PO BID 60 tabs 0RF
== END 2024-03-19 13:53 | disposition home or self-care (01) ==
PROVIDERS: Visit Provider Nurse Practitioner Psychiatric/Mental Health
DX: F41.1 Generalized anxiety disorder (principal); F11.21 Opioid dependence, in remission
CPT/HCPCS: 99214

== ENCOUNTER 2024-04-09 13:33 | Outpatient (AMB) | payer MEDICAID, SELFPAY ==
--- NOTE | 2024-04-09 13:36 | A.OFFVISCC_ITS ---
Intake Visit Reasons: MAT in Office Allergies No Known Allergies [No Known Allergies*] Allergy (Verified 10/04/23 11:03) HPI HPI MAT in Office: Details: Patient presents for follow up for OUD and SOHA Reports he is doing better in terms of anxiety and what he felt were panic attacks States he is taking Sertraline daily 50mg daily He is NOT taking propranolol He states he has also been taking Hydroxyzine PRN --1-2x/day Sleep is okay Appetite is normal Still waiting for PCP appt at [facility] Recently saw eye doctor and got new eyeglasses Discussed employment and how to build structure into his day Review of Systems Const Reports as per HPI Physical Exam Const General: cooperative, healthy appearing and well groomed Orientation/consciousness: patient oriented x3 Limitations: no limitations Neuro General: patient oriented x3 Psych Appearance: well kempt Speech and movement: Normal speech and movement present Affect: normal affect Attitude: cooperative Thought process: Normal thought process present Thought content: Normal thought content present Insight: Good insight present (Psych) Judgement: Good judgement present (Psych) Assessment & Plan Assessment & Plan (1) Opioid use disorder, moderate, in sustained remission: Code(s): F11.21 - Opioid dependence, in remission Category: Medical Plan: * continue suboxone at current dose * relapse prevention discussion (2) Generalized anxiety disorder: Code(s): F41.1 - Generalized anxiety disorder Category: Medical Plan: * continue sertraline * restart hydoxyzine * d/c propranolol Medications: New hydroxyzine HCl 50 mg PO BID PRN 60 tabs 1RF itching Discontinued propranolol Discontinued Reason: Patient no longer taking 10 mg PO BID 60 tabs 0RF
--- OUTSIDE RECORDS SUMMARY | 2024-04-11 15:47 | XMS_ITS ---
Author Name [facility] Organization Unknown Results Test Name/Text Value Interpretation Date Range Source Delta Normal [id number] - 3 H[facility] Troponin T SerPl-mCnc 6ng/L Normal [id number] - 23 [facility] AST SerPl-cCnc 27U/L Normal [id number] 10 - 55 HH CCT ALT SerPl-cCnc 40U/L Normal [id number] 10 - 55 HH CCT Creat SerPl-mCnc 0.9mg/dL Normal [id number] 0.5 - 1.3 [facility] Globulin Ser Calc-mCnc 3.9g/dL Normal [id number] 1.5 - 3.9 H[facility]CT CO2 SerPl-sCnc 26mmol/L Normal [id number] 22 - 33 HH CCT Albumin/Glob SerPl 1.1Ratio Normal [id number] 1 - 3 [facility] Anion Gap Bld-sCnc 10 Normal [id number] 7 - 17 [facility] Potassium SerPl-sCnc 3.6mmol/L Normal [id number] 3.4 - 5.3 H[facility]CT Bilirub SerPl-mCnc 0.6mg/dL Normal [id number] 0.2 - 1 [facility] Calcium SerPl-mCnc 9.6mg/dL Normal [id number] 8.7 - 10 .5 H[facility]CT BUN SerPl-mCnc 10mg/dL Normal [id number] 8 - 21 HH CCT ALP SerPl-cCnc 101U/L Normal [id number] 45 - 128 HH CCT GFR/BSA.pred SerPlBld [id number] 90 Normal [id number] 59 - HHCCT Chloride SerPl-sCnc 96mmol/L Below low normal [id number] 98 - 107 H[facility]CT BUN/Creat SerPl 11Ratio Normal [id number] 10 - 25 H HCCT Albumin SerPl-mCnc 4.3g/dL Normal [id number] 3.5 - 5 H[facility]CT Prot SerPl-mCnc 8.2g/dL Normal [id number] 6.3 - 8.3 H HCCT Glucose SerPl-mCnc 107mg/dL Above high normal [id number] 65 - 99 H[facility]CT Sodium SerPl-sCnc 132mmol/L Below low normal [id number] 13 6 - 145 H[facility]CT Neutrophils num Bld Auto 6.09Thou/uL Normal [id number] 2 - 7.5 H[facility]CT Monocytes num Bld Auto 0.66Thou/uL Normal [id number] 0. 2 - 1.5 H[facility]CT Eosinophil num Bld Auto 0.07Thou/uL Normal [id number] 0 - 0.7 H[facility]CT WBC num Bld Auto 9.1Thou/uL Normal [id number] 4 - 11 HHCCT MCHC RBC Auto-mCnc 35.2g/dL Normal [id number] 30 - 36 HHT Monocytes/leuk NFr Bld Auto 7.3% Normal [id number] HHT Hct VFr Bld Auto 44.3% Normal [id number] 39 - 54 H[facility]CT RBC num Bld Auto 5.18Mil/uL Normal [id number] 4.5 - 6.2 H[facility]CT RDW RBC Auto-Rto 12.1% Normal [id number] 11.5 - 14. 5 H[facility]CT PMV Bld Auto 10.3fL Normal [id number] 7.5 - 12.[address] Eosinophil/leuk NFr Bld Auto 0.8% Normal [id number] [facility] M[facility] RBC Qn Auto 30.1pg Normal [id number] 26 - 34 H HCCT Basophils/leuk NFr Bld Auto 0.3% Normal [id number] [facility] Basophils num Bld Auto 0.03Thou/uL Normal [id number] 0 - 0.2 [facility] Platelet num Bld Auto 243Thou/uL Normal [id number] 150 - 450 [facility]CT Neutrophils/leuk NFr Bld Auto 67.2% Normal [id number] CCT MCV RBC Auto 86fL Normal [id number] 80 - 100 HH T Lymphocytes/leuk NFr Bld Auto 24.1% Normal [facility]CT Lymphocytes num Bld Auto 2.19Thou/uL Normal [id number] 1.5 - 4.5 H[facility]CT Imm Granulocytes/leuk NFr Bld Auto 0.3% Normal [facility]CT Hgb Bld-mCnc 15.6g/dL Normal 13 - 17.7 HHCC T Imm Granulocytes num Bld Auto 0.03Thou/uL Normal 0 - 0.1 HHCCT Delta Normal [id number] - 3 [facility]CT Troponin T SerPl-mCnc 6ng/L Normal [id number] - 23 [facility]CT AST SerPl-cCnc 27U/L Normal [id number] 10 - 55 HH CCT ALT SerPl-cCnc 41U/L Normal [id number] 10 - 55 HH CCT Creat SerPl-mCnc 0.9mg/dL Normal [id number] 0.5 - 1.3 H[facility]CT Globulin Ser Calc-mCnc 3.5g/dL Normal [id number] 1.5 - 3.9 H[facility]CT CO2 SerPl-sCnc 32mmol/L Normal [id number] 22 - 33 HH CCT Albumin/Glob SerPl 1.3Ratio Normal [id number] 1 - 3 H[facility]CT Anion Gap Bld-sCnc 6 Below low normal [id number] 7 - 17 H[facility]CT Potassium SerPl-sCnc 3.9mmol/L Normal [id number] 3.4 - 5.3 HHCCT Bilirub SerPl-mCnc 0.4mg/dL Normal [id number] 0.2 - 1 [facility]CT Calcium SerPl-mCnc 9.9mg/dL Normal [id number] 8.7 - 10 .5 H[facility]CT BUN SerPl-mCnc 8mg/dL Normal [id number] 8 - 21 HH CCT ALP SerPl-cCnc 88U/L Normal [id number] 45 - 128 HH CCT GFR/BSA.pred SerPlBld XWH-[id number] 90 Normal [id number] 59 - HHCCT Chloride SerPl-sCnc 99mmol/L Normal [id number] 98 - 10 7 H[facility]CT BUN/Creat SerPl 9Ratio Below low normal [id number] 10 - 25 H[facility]CT Albumin SerPl-mCnc 4.4g/dL Normal [id number] 3.5 - 5 H[facility]CT Prot SerPl-mCnc 7.9g/dL Normal [id number] 6.3 - 8.3 H HCCT Glucose SerPl-mCnc 88mg/dL Normal [id number] 65 - 99 HHCCT Sodium SerPl-sCnc 137mmol/L Normal [id number] 136 - 145 H[facility]CT Neutrophils num Bld Auto 7.1Thou/uL Normal [id number] 2 - 7.5 HHCCT Monocytes num Bld Auto 0.68Thou/uL Normal [id number] 0. 2 - 1.5 H[facility]CT Eosinophil num Bld Auto 0.07Thou/uL Normal [id number] 0 - 0.7 HHCCT WBC num Bld Auto 11.1Thou/uL Above high normal [id number] 4 - 11 HHCCT MCHC RBC Auto-mCnc 35.1g/dL Normal [id number] 30 - 36 H[facility]CT Monocytes/leuk NFr Bld Auto 6.1% Normal [id number] H[facility]CT Hct VFr Bld Auto 44.4% Normal [id number] 39 - 54 H[facility]CT RBC num Bld Auto 5.15Mil/uL Normal [id number] 4.5 - 6.2 HHCCT RDW RBC Auto-Rto 11.9% Normal [id number] 11.5 - 14. 5 H[facility]CT PMV Bld Auto 10.2fL Normal [id number] 7.5 - 12.[address] Eosinophil/leuk NFr Bld Auto 0.6% Normal [id number] HHCCT MCH RBC Qn Auto 30.3pg Normal [id number] 26 - 34 H HCCT Basophils/leuk NFr Bld Auto 0.3% Normal [id number] H[facility]CT Basophils num Bld Auto 0.03Thou/uL Normal [id number] 0 - 0.2 [facility]CT Platelet num Bld Auto 252Thou/uL Normal [id number] 150 - 450 H[facility]CT Neutrophils/leuk NFr Bld Auto 64.2% Normal [id number] HHCCT MCV RBC Auto 86fL Normal [id number] 80 - 100 HHCC T Lymphocytes/leuk NFr Bld Auto 28.6% Normal [id number] H[facility]CT Lymphocytes num Bld Auto 3.17Thou/uL Normal [id number] 1.5 - 4.5 HHCCT Imm Granulocytes/leuk NFr Bld Auto 0.2% Normal [id number] HHCCT Hgb Bld-mCnc 15.6g/dL Normal [id number] 13 - 17.7 HHCC T Imm Granulocytes num Bld Auto 0.02Thou/uL Normal [id number] 0 - 0.1 HHCCT Delta Normal [id number] - 3 H[facility]CT Troponin T SerPl-mCnc 6ng/L Normal [id number] - 23 H[facility]CT Lipase SerPl-cCnc 20U/L Normal [id number] 13 - 60 HHCCT AST SerPl-cCnc 27U/L Normal [id number] 10 - 55 HH CCT ALT SerPl-cCnc 37U/L Normal [id number] 10 - 55 HH CCT Creat SerPl-mCnc 1mg/dL Normal [id number] 0.5 - 1.3 HHCCT Globulin Ser Calc-mCnc 3.5g/dL Normal [id number] 1.5 - 3.9 HHCCT CO2 SerPl-sCnc 26mmol/L Normal [id number] 22 - 33 HH CCT Albumin/Glob SerPl 1.2Ratio Normal [id number] 1 - 3 H[facility]CT Anion Gap Bld-sCnc 9 Normal [id number] 7 - 17 H[facility]CT Potassium SerPl-sCnc 4.2mmol/L Normal [id number] 3.4 - 5.3 HHCCT Bilirub SerPl-mCnc 0.3mg/dL Normal [id number] 0.2 - 1 H[facility]CT Calcium SerPl-mCnc 9.6mg/dL Normal [id number] 8.7 - 10 .5 HHCCT BUN SerPl-mCnc 10mg/dL Normal [id number] 8 - 21 HH CCT ALP SerPl-cCnc 93U/L Normal [id number] 45 - 128 HH CCT GFR/BSA.pred SerPlBld LNS-[id number]-MzKRnh 90 Normal [id number] 59 - HHCCT Chloride SerPl-sCnc 100mmol/L Normal [id number] 98 - 10 7 HHCCT BUN/Creat SerPl 10Ratio Normal [id number] 10 - 25 H HCCT Albumin SerPl-mCnc 4.1g/dL Normal [id number] 3.5 - 5 HHCCT Prot SerPl-mCnc 7.6g/dL Normal [id number] 6.3 - 8.3 H HCCT Glucose SerPl-mCnc 91mg/dL Normal [id number] 65 - 99 HHCCT Sodium SerPl-sCnc 135mmol/L Below low normal [id number] 13 6 - 145 HHCCT Delta Normal [id number] - 3 HHCCT Troponin T SerPl-mCnc 6ng/L Normal [id number] - 23 HHCCT D dimer FEU PPP-mCnc 150ng/mLDDU Normal [id number] - 23 0 HHCCT Neutrophils num Bld Auto 8.57Thou/uL Above high normal [id number] 2 - 7.5 HHCCT Monocytes num Bld Auto 0.82Thou/uL Normal [id number] 0. 2 - 1.5 HHCCT Eosinophil num Bld Auto 0.09Thou/uL Normal [id number] 0 - 0.7 HHCCT WBC num Bld Auto 12.2Thou/uL Above high normal [id number] 4 - 11 HHCCT MCHC RBC Auto-mCnc 35.1g/dL Normal [id number] 30 - 36 HHCCT Monocytes/leuk NFr Bld Auto 6.7% Normal [id number] HHCCT Hct VFr Bld Auto 44.1% Normal [id number] 39 - 54 HHCCT RBC num Bld Auto 5.12Mil/uL Normal [id number] 4.5 - 6.2 HHCCT RDW RBC Auto-Rto 11.8% Normal [id number] 11.5 - 14. 5 HHCCT PMV Bld Auto 10.4fL Normal [id number] 7.5 - 12.[address] Eosinophil/leuk NFr Bld Auto 0.7% Normal [id number] HHCCT MCH RBC Qn Auto 30.3pg Normal [id number] 26 - 34 H HCCT Basophils/leuk NFr Bld Auto 0.2% Normal [id number] H[facility]CT Basophils num Bld Auto 0.03Thou/uL Normal [id number] 0 - 0.2 H[facility]CT Platelet num Bld Auto 250Thou/uL Normal [id number] 150 - 450 H[facility]CT Neutrophils/leuk NFr Bld Auto 70.5% Normal [id number] [facility] MCV RBC Auto 86fL Normal [id number] 80 - 100 HHCC T Lymphocytes/leuk NFr Bld Auto 21.7% Normal [id number] CCT Lymphocytes num Bld Auto 2.65Thou/uL Normal [id number] 1.5 - 4.5 H[facility]CT Imm Granulocytes/leuk NFr Bld Auto 0.2% Normal [id number] [facility] Hgb Bld-mCnc 15.5g/dL Normal [id number] 13 - 17.7 [facility] Imm Granulocytes num Bld Auto 0.03Thou/uL Normal [id number] 0 - 0.1 CCT PCP Ur Ql Scn>25 ng/mL Normal [id number] - [facility] Opiates Ur Ql Scn>300 ng/mL Normal [id number] - [facility] Cannabinoids Ur Ql Scn>50 ng/mL Normal [id number] - [facility] Amphetamines Ur Ql Normal [id number] - [facility] Benzodiaz Ur Ql Scn>200 ng/mL Normal [id number] - [facility] BZE Ur Ql Normal [id number] - [facility] 2019-nCOV RNA Normal [id number] [facility] CT Specimen source XXX Normal [id number] [facility] C trach rRNA XXX Ql PIERCE+probe Normal [id number] - [facility] N gonorrhoea rRNA XXX Donr Ql PCR Normal [id number] - [facility] HIV 1+2 Ab+HIV1 p24 Ag Ser EIA-aCnc Normal [id number] - [facility] T. pallidum IgG+IgM Ser QI IA Normal [id number] - [facility] Hepatitis C Ab Interpretation Normal [id number] - [facility] HCV Ab s/co SerPl EIA 0.22S/COratio Normal [id number] 0 - 0.79 CCT
== END 2024-04-09 13:55 | disposition home or self-care (01) ==
PROVIDERS: Visit Provider Nurse Practitioner Psychiatric/Mental Health
DX: F11.21 Opioid dependence, in remission (principal); F41.1 Generalized anxiety disorder
CPT/HCPCS: 99214

== ENCOUNTER → 2024-04-09 13:33 | Outpatient (BNVA) | payer MEDICAID, SELFPAY | PROVIDERS: Visit Provider Nurse Practitioner Psychiatric/Mental Health | DX: F11.21 Opioid dependence, in remission (principal); F41.1 Generalized anxiety disorder | CPT/HCPCS: 99212 ==

== ENCOUNTER 2024-05-21 15:30 | Outpatient (AMB) | payer MEDICAID, SELFPAY ==
--- NOTE | 2024-05-21 15:16 | A.OFFVISCC_ITS ---
Intake Visit Reasons: MAT in Office Allergies No Known Allergies [No Known Allergies*] Allergy (Verified 10/04/23 11:03) HPI HPI MAT in Office: Details: Patient presents for follow up via telehealth Currently prescribed Suboxone 8mg daily Doing well with Suboxone Reports anxiety much improved with Sertraline and Hydroxyzine PCP appt July 12 at [facility] Review of Systems Const Reports as per HPI and Reports no additional complaints Telehealth Telehealth Telehealth Platform: Telephone Location of provider rendering services: practice address Location of patient: address on file Patient Identification confirmed using: Name, : Yes Telehealth method: voice only Patient verbally consented to treatment: Yes Patient verbally consented to billing insurance company: Yes Minutes spent on Phone/Video with Pt.: 15 Assessment & Plan Assessment & Plan (1) Opioid use disorder, moderate, in sustained remission: Code(s): F11.21 - Opioid dependence, in remission Category: Medical Plan: * continue suboxone at current dose * relapse prevention discussion (2) Generalized anxiety disorder: Code(s): F41.1 - Generalized anxiety disorder Category: Medical Plan: * continue sertraline * continue hydoxyzine Medications: Refilled sertraline 50 mg PO DAILY 90 tabs 0RF
== END 2024-05-21 15:30 | disposition home or self-care (01) ==
LOC: HO.HCC 15:30
PROVIDERS: Visit Provider Nurse Practitioner Psychiatric/Mental Health
DX: F11.21 Opioid dependence, in remission (principal); F41.1 Generalized anxiety disorder
CPT/HCPCS: 99214

== ENCOUNTER 2024-07-12 11:44 | Outpatient (REF) | payer MEDICAID, SELFPAY ==
[2024-07-12 14:27] LABS: TSH reflex Free T4 0.71 uIU/mL (0.32-4.0)
--- OUTSIDE RECORDS SUMMARY | 2024-07-12 15:10 | XMS_ITS | Encounter Summary ---
Author Organization [employer] Address [address] [facility] [address] [facility] [address] [place] [address] Care Team Providers Care Optical Instrument Repairer Name Role Phone Name, Arnaldo TA Primary Care Provider [phone] Reason for Visit * Reason Comments new patient Encounter Details Date Type Department Care Team ([facility] st Contact Info) Description 07/12/2024 10:45 AM EDT Office Visit [facility] [address] [place] [address] [phone] Name, MD Arnaldo [address] [place] [address] Anxiety (Primary Dx); Panic attacks; Polysubstance (excluding opioids) dependence (CMS/HCC); Screening examination for STI; Tobacco dependence syndrome Social History Tobacco Use Types Packs/Day Years Used Date Smoking Tobacco: Every Day Cigarettes Smokeless Tobacco: Never Tobacco Cessation:Ready to Q uit: Not Asked Alcohol Use Standard Drinks/Week Comments Yes 5 (1 standard drink = 0.6 oz pur e alcohol) weekends Depression Answer Date Recorded Patient Health Questionnaire-9 Score 4 07/12/2024 Patient Health Questionnaire-9 Score 4 07/12/2024 Last PHQ-9: Questionnaire Data Not on file 0 07/12/2024 Housing Stability Answer Date Recorded What is your housing situation today? I do not have housing (Staying with others, in a hotel, in a penitentiary, living outside on the street, on a beach, in a car, or in a park 07/12/[address] you li ve. Do you have problems with any of the following? None of the above 07/12/2024 Food Insecurity Answer Date Recorded Within the past 12 months, y ou worried that your food would run out before you got money to buy more: Never True 07/12/2024 Within the past 12 months,th e food you bought just didn't last and you didn't have enough money to get more: Never True Transportation Answer Date Recorded In the past 12 months, has l ack of transportation kept you from medical appts, meetings, work or from getting things needed for daily living? No 07/12/2024 Utilities Answer Date Recorded In the past 12 months, has t he electric, gas, oil or water company threatened to shut off services in your home? No 07/12/2024 Depression Answer Date Recorded Patient Health Questionnaire-2 Score 2 07/12/2024 Internet Access Answer Date Recorded Internet Access Q1 Yes 07/12/2024 Internet Access Q2 Not on file 07/12/2024 Sex and Gender Information Value Date Recorded Sex Assigned at Male 03/01/2022 10:16 AM EDT Legal Sex Male 10:16 AM EDT Gender Identity Male 02/23/2024 10:04 AM EDT Sexual Orientation Straight 02/23/2024 10 :04 AM EDT documented as of this encounter Last Filed Vital Signs Vital Sign Reading Time Taken Comments Blood Pressure 138/75 07/12/2024 10:51 AM EDT Pulse 87 07/12/2024 10:51 AM EDT Temperature 37.1 ??C (98.8 ??F) 07/12/2024 10:51 AM E DT Respiratory Rate 20 07/12/2024 10:51 AM EDT Oxygen Saturation 96% 07/12/2024 10:51 AM EDT Inhaled Oxygen Concentration - - Weight 127 kg (280 lb 6.4 oz) 07/12/2024 10:51 A M EDT Height 172.7 cm (5' 8 ) 07/12/2024 10:51 AM EDT Body Mass Index 42.63 07/12/2024 10:51 AM EDT documented in this encounter Progress Notes * Arnaldo Ghosh MD - 07/12/2024 10:45 AM EDT Subjective Patient ID: Yassine Rodriguez is a 24 y.o. male who presents for new patient. Patient comes for the first time to see me. He has a personal history of anxiety, panic attacks andpolysubstance abuse. He is currently treated with Suboxone prescribed at [facility]. He has not used cocaine in many years. He has a prescribing psychiatric provider that has recommended him touse fluoxetine. He has not started using the fluoxetine yet. Last year he was prescribed sertralineand hydroxyzine that were not helpful. The patient tells me that he is not has been buying clonazepam on the street and he is using 1 mg daily. He has Narcan at home. Patient tells me that he is trying to overcome his anxiety. He has been doing well on Suboxone. He has been exercising regularly. Hevapes nicotine daily. He drinks alcohol on the weekends with his brothers. Review of Systems Constitutional: Negative for chills, fatigue and fever. HENT: Negative for sore throat. Respiratory: Negative for cough, chest tightness and shortness of breath. Cardiovascular: Negative for chest pain, palpitations and leg swelling. Gastrointestinal: Negative for abdominal pain and blood in stool. Psychiatric/Behavioral: Negative for self-injury and sleep disturbance. The patient is nervous/anxious. Visit Vitals BP 138/75 (BP Location: Right arm, Patient Position: Sitting, BP Cuff Size: Large adult) Pulse 87 Temp 98.8 ??F (37.1 ??C) (Oral) Resp 20 Ht 5' 8 (1.727 m) Wt 280 lb 6.4 oz (127 kg) SpO2 96% BMI 42.63 kg/m?? Smoking Status Every Day BSA 2.47 m?? Objective Physical Exam Constitutional: Appearance: Normal appearance. Cardiovascular: Rate and Rhythm: Normal rate and regular rhythm. Heart sounds: No murmur heard. Pulmonary: Effort: Pulmonary effort is normal. No respiratory distress. Breath sounds: No wheezing, rhonchi or rales. Abdominal: Palpations: Abdomen is soft. Tenderness: There is no abdominal tenderness. Musculoskeletal: Right lower leg: No edema. Left lower leg: No edema. Neurological: Mental Status: He is alert. Assessment/Plan Diagnoses and all orders for this visit: Anxiety Comments: I recommended to use the fluoxetine prescribed by her prescribing psychiatric provider. I recommended to avoid the use of clonazepam. We discussed the risk of buying clonazepam on the street I recommended trial of BuSpar in addition to the fluoxetine Check TSH. Orders: - busPIRone (Buspar) 10 MG tablet; Take 1 tablet (10 mg) by mouth 3 times daily. Panic attacks - busPIRone (Buspar) 10 MG tablet; Take 1 tablet (10 mg) by mouth 3 times daily. - TSH W/Reflex to FT4; Future Polysubstance (excluding opioids) dependence (CMS/HCC) Comments: Patient is doing well on Suboxone. He has Narcan at home. He has not used cocaine in years. He is not a heavy drinker. He is not ready to quit smoking. Screening examination for STI Comments: Patient agrees with STI screening and flu vaccine today. Orders: - HIV-1/2 Antigen and Antibodies, Fourth Generation, with Reflexes; Future - RPR (Monitor) with Reflex to Titer; Future - Hepatitis C Antibody with Reflex to HCV, RNA, Quantitative, Real-Time PCR; Future - Hepatitis B surface antigen, EIA; Future - Hepatitis B Surface Antibody, Qualitative; Future - Chlamydia/N. Gonorrhoeae RNA, TMA, Urogenitial Tobacco dependence syndrome Comments: Patient is not ready to quit smoking yet. Other orders - Flu vaccine greater than or equal to 6 months old, preservative free IM documented in this encounter Plan of Treatment Upcoming Encounters Date Type Department Care Team (Late st Contact Info) Description 10/24/2024 11:30 AM EDT Office Visit [facility] [address] [place] [phone] Arnaldo Ghosh MD [address] [place] [phone] Scheduled Orders Name Type Priority Associated Diagnoses Orde r Schedule HIV-1/2 Antigen and Antibodies, Fourth Generation, with Reflexes Lab Routine Screening examination for STI Expected: 07/12/2024 (Approximate), Expires: 07/12/2025 RPR (Monitor) with Reflex to??Titer Lab Routine Screening examination for STI Expected: 07/12/2024, Expires: 07/12/2025 Hepatitis C Antibody with Reflex to HCV, RNA, Quantitative, Real-Time PCR Lab Routine Screening examination for STI Expected: 07/12/2024, Expires: 07/12/2025 Hepatitis B surface antigen, EIA Lab Routine Screening examination for STI Expected: 07/12/2024 (Approximate), Expires: 07/12/2025 Hepatitis B Surface Antibody, Qualitative Lab Routine Screening examination for STI Expected: 07/12/2024 (Approximate), Expires: 07/12/2025 Chlamydia/N. Gonorrhoeae RNA, TMA, Urogenitial Microbiology Routine Screening examination for STI Ordered: 07/12/2024 documented as of this encounter Procedures Procedure Name Priority Date/Time Associated Diagnosis Comments TSH W/REFLEX TO FT4 Routine 07/12/2024 1 1:43 AM EDT Panic attacks documented in this encounter Results * TSH W/Reflex to FT4 (07/12/2024 11:43 AM EDT) TSH reflex Free T4 0.71 0.32 - 4.0 uIU/mL [facility] Blood Venous blood specimen / Unknown 07/12/2024 11:43 AM EDT 07/12/2024 1:35 PM EDT us Arnaldo Ghosh MD LAB BLOOD ORDERABLES Final Resul t Performing Organization Address City/[facility]/ZIP Co de Phone Number [facility] [address] [place] [phone] documented in this encounter Visit Diagnoses Diagnosis Anxiety- Primary Anxiety state, unspecified Panic attacks Panic disorder without agoraphobia Polysubstance (excluding opioids) dependence (CMS/HCC) Screening examination for STI Tobacco dependence syndrome Tobacco use disorder documented in this encounter Additional Health Concerns Assessment Noted Time PHQ-9 Depression Total Score: 4 07/13/19 11:25 AM EDT documented as of this encounter Care Teams Optical Instrument Repairer Relationship Specialty Start Date End Date Name, MD Arnaldo [address] [place] [address] PCP - General Internal Medicine 07/12/24 documented as of this encounter
--- OUTSIDE RECORDS SUMMARY | 2024-07-12 15:10 | XMS_ITS | Encounter Summary ---
Author Organization [employer] Address [address] [place] [address] Care Team Providers Care Summer Babysitter Name Role Phone Name, Arnaldo TA Primary Care Provider [phone] Encounter Details Date Type Department Care Team ([facility] st Contact Info) Description 07/12/2024 Telephone [facility] [address] [place], [place] [phone] Name, MD Arnaldo [address] [place] [address] Social History Tobacco Use Types Packs/Day Years Used Date Smoking Tobacco: Every Day Cigarettes Smokeless Tobacco: Never Alcohol Use Standard Drinks/Week Comments Yes 5 [...] with others, in a hotel, in a fdc, living outside on the street, on a [...] AM EDT documented as of this encounter Plan of Treatment Upcoming Encounters Date Type Department Care Team (Late st Contact Info) Description 10/24/2024 11:30 AM EDT Office Visit [facility] [address] [place] [address] Name, MD Arnaldo [address] [place] [address] documented as of this encounter Visit Diagnoses Not on filedocumented in this encounter Additional Health Concerns Assessment Noted Time PHQ-9 Depression Total Score: 4 07/13/19 25 11:25 AM EDT documented as of this encounter Care Teams Summer Babysitter Relationship Specialty Start Date End Date NameArnaldo MD [address] [place] [id number] PCP - General Internal Medicine 07/12/24 documented as of this encounter
--- OUTSIDE RECORDS SUMMARY | 2024-07-12 15:10 | XMS_ITS | Encounter Summary ---
Author Organization [employer] Address [address] [place] [address] Care Team Providers Care Tractor Expert Name Role Phone Name, Arnaldo TA Primary Care Provider [phone] Encounter Details Date Type Department Care Team (Latest Contact Info) Description 07/12/2024 Travel Social History Tobacco Use Types Packs/Day Years [...] with others, in a hotel, in a care home, living outside on the street, on a [...] t he electric, gas, oil or water tu.nr threatened to shut off services in your [...] Description 10/24/2024 11:30 AM EDT Office Visit [facility] [address] [place] [address] NameArnaldo MD [address] [place] [address] documented as of this encounter Visit Diagnoses Not on filedocumented in this encounter Additional Health Concerns Assessment Noted Time PHQ-9 Depression Total Score: 4 07/13/19 25 11:25 AM EDT documented as of this encounter Care Teams Tractor Expert Relationship Specialty Start Date End Date NameArnaldo MD [address] [place] [phone] PCP - General Internal Medicine 07/12/24 documented as of this encounter
--- OUTSIDE RECORDS SUMMARY | 2024-07-12 15:10 | XMS_ITS | Clinical Summary ---
Author Organization Formerly [facility] Address [address] [place] [address] Care Team Providers Care Cement Mason Helper Name Role Phone Pcp, No Primary Care Provider Unavailabl e Allergies No known active allergies Medications Medication Sig Dispensed Refills Start Date End Date Status ciprofloxacin-hydroc ortisone (CIPRO HC) 0.2-1 % otic suspension Three drops in the affected ear two times daily until better. Use no longer than 7 days 10 mL 09/01/2023 Active albuterol (PROVENTIL HFA; VENTOLIN HFA) 108 (90 Base) MCG/ACT inhaler Inhale 2 puffs See Admin Instructions. Inhale 2 puffs every 4 hours while awake for next 5 days, then 4 times a day as needed 1 each 01/10/2024 Active hydrOXYzine HCl (ATARAX) 25 MG tablet Take 1 tablet (25 mg total) by mouth 4 times daily (every 6 hours) as needed for anxiety (symptoms). 20 tablet 02/14/2024 Active Social History Tobacco Use Types Packs/Day Years Used Date Smoking Tobacco: Never Sex and Gender Information Value Date Recorded Sex Assigned at Male 06/23/2023 12:46 AM EST Gender Identity Male 06/23/2023 12:46 AM EST Sexual Orientation Heterosexual (straight) 06/23 12:47 AM EST Last Filed Vital Signs Vital Sign Reading Time Taken Comments Blood Pressure 151/67 02/14/2024 12:43 AM EDT Pulse 92 02/14/2024 2:19 AM EDT Temperature 37.2 ??C (98.9 ??F) 02/14/2024 12:43 AM E DT Respiratory Rate 18 02/14/2024 2:19 AM EDT Oxygen Saturation 100% 02/14/2024 2:19 AM EDT Inhaled Oxygen Concentration - - Weight 122 kg (270 lb) 01/07/2024 11:44 AM EDT Height 172.7 cm (5' 8 ) 07/14/2023 6:44 PM EDT Body Mass Index 41.05 07/14/2023 6:44 PM EDT Plan of Treatment Health Maintenance Due Date Last Done Comments HPV Vaccines (1 - Male 3-dos e series) 07/02/2015 DTaP/Tdap/Td Vaccines (1 - Tdap) 07/02/2019 Hepatitis B Vaccines (1 of 3 - 19+ 3-dose series) 07/02/2019 Influenza Vaccine 12/01/2023 COVID-19 Vaccine ( - 2023-2 5 season) 2024 HIV Screening Completed 01/07/2024 Hepatitis C Virus Screening Completed 01/07/2024 Pneumococcal Vaccine: Pediat lynn (0-5 Years) and At-Risk Patients (6 to 49 Years) Aged Out No longer eligible b ased on patient's age to complete this topic Procedures Procedure Name Priority Date/Time Associated Diagnosis Comments HIV 1/2 AG/AB CMIA REFLEX TO CONFIRMATION STAT 01/07/2024 12:18 PM EDT HEPATITIS C ANTIBODY REFLEX HCV RT-PCR, QUANT STAT 01/07/2024 12:18 PM EDT from Last 3 Months or Most Recently Relevant to Health Maintenance Results * Hepatitis C Antibody reflex HCV RT-PCR, Quant (01/07/2024 12:18 PM EDT) Hepatitis C Antibody 0.22 0.00 - 0.79 S/CO ratio 01/09/2024 11:18 AM EDT [facility] Hepatitis C Antibody Interpretation Nonreactive Nonreactive 01/09/2024 11:18 AM EDT [facility] Comment:Antibodies to HCV no t detected. This does not exclude the possibility of exposure to HCV. Blood (Plasma/Serum) 01/07/2024 12:18 PM EDT 01/07/2024 12:35 PM EDT Kim HERNANDES LAB BLOOD ORDERABLE S [facility] [address] * HIV 1/2 Ag/Ab CMIA Reflex to Confirmation (01/07/2024 12:18 PM EDT) HIV 1/2 Ag/Ab CMIA Nonreactive Nonreactive 01/09/2024 11:18 AM EDT [facility] Comment: Results show no evidence of infection by HIV 1/2. If clinically indicated, repeat CMIA or test by nucleic acid amplification. HIV 1/2 Antigen/Antibody CMIA reflex to confirmation AND HIV-1 RNA viral load recommended in patients who are taking or have recently taken PrEP. Blood Serum specimen / Unknown 01/07/2024 12:18 PM EDT 01/07/2024 12:35 PM EDT Kim HERNANDES LAB BLOOD ORDERABLE S [facility] [address] from Last 3 Months or Most Recently Relevant to Health Maintenance Care Teams Cement Mason Helper Relationship Specialty Start Date End Date Pcp, No PCP - General 06/23/23
--- OUTSIDE RECORDS SUMMARY | 2024-07-12 15:11 | XMS_ITS | Clinical Summary ---
Author Organization [employer] Address [address] [place] [address] Care Team Providers Care Investment Manager Name Role Phone NameArnaldo MD Primary Care Provider [phone] Allergies No known active allergies Medications * This document contains information received from the source organization and may not represent a complete record from that organization. Suboxone 8-2 MG SL film TAKE 1 FILM SUBLINGUALLY DAILY 5 Active FLUoxetine (PROzac) 20 MG capsule Take 1 capsule by mouth Once per day. 5 Active busPIRone (Buspar) 10 MG tabletIndicatio ns:Anxiety,Gibran c attacks Take 1 tablet (10 mg) by mouth 3 times daily. 90 tablet 11 5 07/13/19 26 Active Active Problems Problem Noted Date Diagnosed Date Tobacco dependence syndrome 07/12/2024 Panic attacks 07/12/2024 Polysubstance (excluding opioids) dependence Overview (07/12/2024): . Moderate episode of recurrent major depressive d isorder 02/23/2024 Anxiety 02/23/2024 PTSD (post-traumatic stress disorder) 02/23/2024 History of cocaine use 02/23/2024 Eczema 05/18/2017 Encounters Date Type Department Care Team Description 07/12/2024 10:45 AM EDT Office Visit [facility] [address] [place], [place] [phone] NameArnaldo MD Anxiety (Primary Dx); Panic attacks; Polysubstance (excluding opioids) dependence (CMS/HCC); Screening examination for STI; Tobacco dependence syndrome 07/12/[address] [facility] [address] [place] [address] Name, MD Arnaldo 07/12/2024 Travel 05/03/[address] [facility] [address] [place] [address] Greg Terrazas MD New patient appt. from Last 3 Months Immunizations Name Administration Dates Next Due DTaP 07/28/2005, 2,02/24/2001,11/08,2000 HPV, Quadrivalent 11/07/2012,02/26/2011,01/26/20 11 Hep A, ped/adol, 3 dose 01/01/2009,11/07/2006, Hep B, Adolescent or Pediatric 02/24/2001,2000,2000 Hib (HbO) 01/30/2004, 1,2000,08/23 IPV 07/28/2005, 2,2000,08/23 Influenza injectable quadriv alent preservative free 05/08/2018,07/05/2016 Influenza live intranasal qu adrivalent LIAV4 02/07/2014 Influenza, IIV3, injectable 01/25/2011, 9 Influenza, Split (incl. shukri fied surface antigen) 02/09/2012 Influenza, live, intranasal 02/07/2013 Influenza, seasonal, injecta ble, preservative free 07/12/2024 MMR 07/28/2005,10/05/2001 Meningococcal MCV4P [id number]-135 01/10/2017,02/09/20 12 Pneumococcal Conjugate PCV 7 01/30/2004, 02/24/2001,2000,08/23 Tdap 10/02/2023,11/07/2012 Varicella 12/27/2007,11/05/2003 Family History Medical History Relation Name Comments Anxiety disorder Father Relation Name Status Comments Father Social History Tobacco Use Types Packs/Day Years [...] with others, in a hotel, in a snf, living outside on the street, on a [...] Orientation Straight 02/23/2024 10 :04 AM EDT Last Filed Vital Signs Vital Sign Reading [...] Mass Index 42.63 07/12/2024 10:51 AM EDT Plan of Treatment Upcoming Encounters Date Type Department Care Team (Late st Contact Info) Description 10/24/2024 11:30 AM EDT Office Visit [facility] [address] [place] [address] Name, MD Arnaldo [address] [place] [address] Health Maintenance Due Date Last Done Comments HIV Screening 2000 Lipid Panel 2000 Alcohol/Substance Use Screening 2012 Family Planning (PISQ) 07/02/2015 Hepatitis C Screening 2018 Pneumococcal Vaccine: Pediatrics (0 to 5 Years) and At-Risk Patients (6 to 49) Years) (1 of 2 - PCV) 07/02/2019 01/30/2004, 02/24/2001, 2000, Additional history exists COVID-19 Vaccine ( - 2023- season) 2024 Depression Screening 07/12/2025 07/12/2024, 07/13/19 SDOH Screening 07/12/2025 07/12/2024 Tobacco Screening 07/12/2025 07/12/2024 DTaP/Tdap/Td Vaccines (8 - Td or Tdap) 10/01/2033 10/02/2023, 11/07/2012, 07/28/2005, Additional history exists Zoster Vaccines (1 of 2) 2050 RSV Patients and Patients Aged 60 years or older (1 - 1-dose 75+ series) 07/02/2075 Hepatitis B Vaccines Completed 02/24/2001, 2000, 2000 HIB Vaccines Completed 01/30/2004, 01/31, 2000, Additional history exists IPV Vaccines Completed 07/28/2005, 09/2001, 2000, Additional history exists HPV Vaccines Completed 11/07/2012, 01/31, 01/25/2011 Meningococcal Vaccine Completed 01/10/2017, 012 Influenza Vaccine Completed 07/12/2024, , 07/05/2016, Additional history exists Hepatitis A Vaccines Aged Out No long er eligible based on patient's age to complete this topic RSV under 20 months Aged Out No longe r eligible based on patient's age to complete this topic Rotavirus Vaccines Aged Out No longer eligible based on patient's age to complete this topic Procedures Procedure Name Priority Date/Time Associated Diagnosis Comments TSH W/REFLEX TO FT4 Routine 07/12/2024 1 1:43 AM EDT Panic attacks from Last 3 Months Results * TSH W/Reflex to FT4 (07/12/2024 11:43 AM EDT) TSH reflex Free T4 0.71 0.32 - 4.0 uIU/mL [facility] Blood Venous blood specimen / Unknown 07/12/2024 11:43 AM EDT 07/12/2024 1:35 PM EDT us Arnaldo Name LAB BLOOD ORDERABLES Final Resul t [facility] [address] [place] [phone] from Last 3 Months Insurance * Guarantor: Yassine Rodriguez Account Type Relation to Patient Date of Phone Billing Address Personal/Family Self [address] [place] [address] [facility] C3 HSN PARTIAL Care Teams Investment Manager Relationship Specialty Start Date End Date Name, MD Arnaldo [address] [place] [phone] PCP - General Internal Medicine 07/12/24
[2024-07-12 15:53] LABS: CT PCR NOT DETECTED (Not Detect.); NG PCR NOT DETECTED (Not Detect.)
[2024-07-13 04:17] LABS: HBS Num1 0.26 mIU/mL (0-7.99); HBsAGNum1 0.31 S/CO (0.00-0.99); HIV AB/AG Nonreactive (Nonreactive); HIV Num 1 0.06 S/CO (0.00-0.99); Hepatitis B Surface Antigen Negative (Negative); ~HepC Num1 0.24 S/CO (0.00-0.79); ~Hepatitis B Surface Antibody NONREACTIVE (Nonreactive); ~Hepatitis C Antibody Nonreactive (Nonreactive)
[2024-07-13 12:19] LABS: RPR Rapid Plasma Reagin NON-REACTIVE (NON-REACTIVE)
== END 2024-07-12 11:45 | disposition home or self-care (01) ==
LOC: HO.HHCL 11:44
PROVIDERS: Visit Provider Internal Medicine Geriatric Medicine
DX: Z11.3 Encounter for screening for infections with a predominantly sexual mode of transmission (principal); F41.0 Panic disorder [episodic paroxysmal anxiety]
CPT/HCPCS: 84443; 86592; 86706; 86803; 87340; 87389; 87491; 87591

== ENCOUNTER 2024-08-03 10:59 | Outpatient (AMB) | payer MEDICAID, SELFPAY ==
--- NOTE | 2024-08-03 11:01 | MHC.OFFVIS ---
Vital Signs 08/03/24 11:10 Height 5 ft 8 in Weight 284 lb BMI 43.2 Pulse 67 Pulse Source Pulse Oximeter Pulse Oximetry (%) 98 Oxygen Delivery Method Room Air Intake Visit Reasons: mat visit Allergies No Known Allergies [No Known Allergies*] Allergy (Verified 08/03/24 11:11) HPI HPI mat visit: Details: He has OUD and is taking Suboxone 8/2 one daily. He last had telehealth visit 05/30 and was seen in April in office with Elle Torres. He gets one monthly script with one refill. He filled on 05/30 and then 07/05. He filled late because trying to taper to 1/2 daily but isnt ready to do that regularly yet. He will think about injection products, e.g Sublocade. He said he used to share with brother who comes here but isnt doing that anymore. He is working on [employer] but denies gambling problem,isnt losing money and is doing that for fun Review of Systems Const All systems reviewed & are unremarkable except as noted in HPI and below Physical Exam Vital Signs: Last Vital Signs Pulse 67 08/03/24 11:10 Pulse Ox 98 08/03/24 11:10 Oxygen Delivery Method Room Air 08/03/24 11:10 BMI result Body Mass Index 43.2 Const General: cooperative and healthy appearing Results AMB 14 Panel Urine Drug Screen Urine Marijuana (THC) Negative Last Edit by Christie Marie CMA on 08/03/24 11:14 Urine Cocaine Negative Last Edit by Christie Marie CMA on 08/03/24 11:14 Urine Morphine Negative Last Edit by Christie Marie CMA on 08/03/24 11:14 Urine Methamphetamine Negative Last Edit by Christie Marie CMA on 08/03/24 11:14 Urine Amphetamine Negative Last Edit by Christie Marie CMA on 08/03/24 11:14 Urine Benzodiazepine Negative Last Edit by Christie Marie CMA on 08/03/24 11:14 Urine Barbiturates Negative Last Edit by Christie Marie CMA on 08/03/24 11:14 Urine Methadone Negative Last Edit by Christie Marie CMA on 08/03/24 11:14 Urine Buprenorphine Positive Last Edit by Christie Marie CMA on 08/03/24 11:14 Urine Buprenorphine previously reported as Negative Christie Marie 08/03/24 11:14 Urine Tricyclic Antidepressant Negative Last Edit by Christie Marie CMA on 08/03/24 11:14 Urine MDMA Negative Last Edit by Christie Marie CMA on 08/03/24 11:14 Urine Oxycodone Negative Last Edit by Christie Marie CMA on 08/03/24 11:14 Urine Phencyclidine Negative Last Edit by Christie Marie CMA on 08/03/24 11:14 Urine Propoxyphene Negative Last Edit by Christie Marie CMA on 08/03/24 11:14 Results Reviewed Results Reviewed: Laboratory Last Values POC Urine Buprenorphine Positive 08/03/24 11:12 POC Urine Morphine Negative 08/03/24 11:12 POC Urine Oxycodone Negative 08/03/24 11:12 POC Urine Methadone Negative 08/03/24 11:12 POC Urine Propoxyphene Negative 08/03/24 11:12 POC Urine Barbiturates Negative 08/03/24 11:12 POC U Tricyclic Antidpr Negative 08/03/24 11:12 POC Urine PCP Negative 08/03/24 11:12 POC Ur Amphetamines Negative 08/03/24 11:12 POC Ur Methamphetamine Negative 08/03/24 11:12 POC Urine MDMA Negative 08/03/24 11:12 POC Ur Benzodiazepine Negative 08/03/24 11:12 POC Urine Cocaine Negative 08/03/24 11:12 POC Ur Marijuana (THC) Negative 08/03/24 11:12 Assessment & Plan Assessment & Plan (1) Opioid use disorder, moderate, in sustained remission: Comment: He is doing well and went back to taking one sl daily and practices good dental hygiene He is HIV and Hepatitis C and B negative and just had physical with Dr Ghosh at [facility]. Code(s): F11.21 - Opioid dependence, in remission Category: Medical Plan: One month Suboxone 8/2 daily and one refill. See in person in two months. No counseling issues ,SI or HI at this time. Orders: Orders AMB 14 Panel Urine Drug Screen Today Z51.81 - Encounter for therapeutic drug level monitoring Medications: New buprenorphine-naloxone 8-2 mg (Suboxone) 1 film sublingual Q24H 30 ea 1RF 30 days Coding Level of Care Code Est Pt Level 3 (97981) Diagnoses Opioid use disorder, moderate, in sustained remission F11.21
[2024-08-03 11:10] VITALS: PULSE 67; O2SAT 98; BMI 43.2
--- OUTSIDE RECORDS SUMMARY | 2024-08-03 12:44 | XMS_ITS | Clinical Summary ---
Author Organization [facility] Address [address] [place] [address] Care Team Providers Care Body Cleaner Name Role Phone Pcp, No Primary Care [...] 0.79 S/CO ratio 01/09/2024 11:18 AM EDT [facility] Hepatitis C Antibody Interpretation Nonreactive Nonreactive 01/09/2024 11:18 AM EDT [facility] Comment:Antibodies to HCV no t detected. This does not exclude the possibility of exposure to HCV. Blood (Plasma/Serum) 01/07/2024 12:18 PM EDT 01/07/2024 12:35 PM EDT Kim HERNANDES LAB BLOOD ORDERABLE S [facility] [address] * HIV 1/2 Ag/Ab CMIA Reflex to Confirmation (01/07/2024 12:18 PM EDT) HIV 1/2 Ag/Ab CMIA Nonreactive Nonreactive 01/09/2024 11:18 AM EDT [facility] Comment: Results show no evidence [...] EDT Kim HERNANDES LAB BLOOD ORDERABLE S [facility] [address] from Last 3 Months or Most Recently Relevant to Health Maintenance Care Teams Body Cleaner Relationship Specialty Start Date End Date Pcp, No PCP - General 06/23/23
--- OUTSIDE RECORDS SUMMARY | 2024-08-03 12:44 | XMS_ITS | Clinical Summary ---
Author Organization [employer] Address [address] [facility] [address] [place] [address] Care Team Providers Care Lombardi Developer Name Role Phone Name, Arnaldo TA Primary Care Provider [phone] Allergies No known active allergies Medications * [...] Encounters Date Type Department Care Team Description 07/24/2024 Telephone [facility] [address] [place] [phone] Name, MD Arnaldo 07/13/2024 Population Health Risk Score [facility] (C3) Department [address] [facility] [address] [place] [address] Provider, Population Health Generic 07/12/2024 10:45 AM EDT Office Visit [facility] [address] [place] [address] Arnaldo Ghosh MD Anxiety (Primary Dx); Panic attacks; Polysubstance (excluding opioids) dependence (CMS/HCC); Screening examination for STI; Tobacco dependence syndrome 07/12/2024 Telephone [facility] [address] [place] [address] NameArnaldo MD 07/12/2024 Travel from Last 3 Months Immunizations Name Administration Dates Next Due DTaP 07/28/2005, 2,02/24/2001,11/08,2000 HPV, Quadrivalent 11/07/2012,02/26/2011,01/26/20 11 Hep A, ped/adol, 3 dose 01/01/2009,11/07/2006, Hep B, Adolescent or Pediatric 02/24/2001,2000,2000 Hib (HbOC) 01/30/2004, 1,2000,08/23 IPV 07/28/2005, 2,2000,08/23 Influenza injectable [...] with others, in a hotel, in a senior care, living outside on the street, on a [...] Description 10/24/2024 11:30 AM EDT Office Visit [facility] [address] [place], [place] [phone] Name, MD Arnaldo [address] [place] [address] Health Maintenance Due Date Last Done Comments Lipid Panel 2000 Alcohol/Substance Use Screening 2012 Family Planning (PISQ) 07/02/2015 Pneumococcal Vaccine: Pediatrics (0 to 5 Years) [...] 01/31, 01/25/2011 Meningococcal Vaccine Completed 01/10/2017, 012 HIV Screening Completed 07/12/2024 Hepatitis C Screening Completed 07/12/2024 Influenza Vaccine Completed 07/12/2024, , 07/05/2016, Additional [...] Procedure Name Priority Date/Time Associated Diagnosis Comments HEPATITIS B SURFACE ANTIBODY, QUALITATIVE Routine 07/12/2024 11:48 AM EDT Screening examination for STI HEPATITIS B SURFACE ANTIGEN, EIA Routine 07/12/2024 11:48 AM EDT Screening examination for STI HEPATITIS C AB W/REFL TO HCV RNA, QN, PCR Routine 07/12/2024 11:48 AM EDT Screening examination for STI RPR (MONITOR) W/REFL TITER Routine 07/12/2024 11:48 AM EDT Screening examination for STI HIV 1/2 ANTIGEN/ANTIBODY, FOURTH GENERATION W/RFL Routine 07/12/2024 11:48 AM EDT Screening examination for STI CHLAMYDIA/N. GONORRHOEAE RNA, TMA, UROGENITAL Routine 07/12/2024 11:48 AM EDT Screening examination for STI TSH W/REFLEX TO FT4 Routine 07/12/2024 1 1:43 AM EDT Panic attacks from Last 3 Months Results * Hepatitis C Antibody with Reflex to HCV, RNA, Quantitative, Real-Time PCR (07/12/2024 11:48 AM EDT) Hepatitis C Antibody Nonreactive Nonreactive [facility] Comment:Antibodies to HCV no t detected; does not exclude early acuteHCV infection. Blood Venous blood specimen / Unknown 07/12/2024 11:48 AM EDT 07/12/2024 1:35 PM EDT Arnaldo Ghosh MD LAB BLOOD ORDERABLES Final Resul t [facility] [address] [place] [phone] * Chlamydia/N. Gonorrhoeae RNA, TMA, Urogenitial (07/12/2024 11:48 AM EDT) CT PCR NOT DETECTED Not Detect. [facility] Comment:A not detected test result does not exclude the possibilityof infection because test results can be affected byimproper specimen collection, concurrent antibiotic therapy,or the number of organisms in the specimen which may bebelow the sensitivity of the test. As with many diagnostictests, results from the Xpert CT/NG assay should beinterpreted in conjunction with other laboratory andclinical data available to the clinician.Xpert CT/NG performance has not been evaluated in patientsless than 14 years of age. The assay should not be used forthe evaluationof suspected sexual abuse or for other medico-legalindications. Additional testing is recommended in anycircumstance when false positive or false negative resultscould lead to adverse medical, social or psychologicalconsequences. NG PCR NOT DETECTED Not Detect. [facility] Comment:A not detected test result does not exclude the possibilityof infection because test results can be affected byimproper specimen collection, concurrent antibiotic therapy,or the number of organisms in the specimen which may bebelow the sensitivity of the test. As with many diagnostictests, results from the Xpert CT/NG assay should beinterpreted in conjunction with other laboratory andclinical data available to the clinician.Xpert CT/NG performance has not been evaluated in patientsless than 14 years of age. The assay should not be used forthe evaluationof suspected sexual abuse or for other medico-legalindications. Additional testing is recommended in anycircumstance when false positive or false negative resultscould lead to adverse medical, social or psychologicalconsequences. Urine (Urine, Random) 07/12/2024 11:48 AM EDT 07/12/2024 1:03 PM EDT Narrative [facility] - 07/12/2024 3:53 PM EDT Urine us Arnaldo Ghosh MD LAB MICROBIOLOGY - GENERAL ORDER JAYDEN Final Result Performing Organization Address [facility] de Phone Number [facility] [address] [place] [phone] * Hepatitis B surface antigen, EIA (07/12/2024 11:48 AM EDT) Hepatitis B Surface Ag Negative Negative [facility] Blood Venous blood specimen / Unknown 07/12/2024 11:48 AM EDT 07/12/2024 1:35 PM EDT us Arnaldo Ghosh MD LAB BLOOD ORDERABLES Final Resul t Performing Organization Address [facility] de Phone Number [facility] [address] [place] [phone] * RPR (Monitor) with Reflex to??Titer (07/12/2024 11:48 AM EDT) RPR (Monitor) w/Refl Titer NON-REACTI VE NON-REACT SILVA [facility] Comment:THIS TEST WAS PERFOR MED AT:[facility] [address] [id number] ARROYO MD Rapid Plasma Reagin Ab Titer TNP [facility] Blood Venous blood specimen / Unknown 07/12/2024 11:48 AM EDT 07/12/2024 1:35 PM EDT us Arnaldo Ghosh MD LAB BLOOD ORDERABLES Final Resul t Performing Organization Address [facility] Co de Phone Number [facility] [address] [place] [phone] * HIV-1/2 Antigen and Antibodies, Fourth Generation, with Reflexes (07/12/2024 11:48 AM EDT) HIV AB/AG Nonreactive Nonreactive [facility] Comment:HIV-1 p24 Ag and/or HIV-1/HIV-2 Ab not detected.A test result that is nonreactive does not exclude thepossibility of exposure to or infection with HIV-1 and/orHIV-2. Nonreactive results in this assay for individualswith prior exposure to HIV-1 and/or HIV-2 may be due toantigen and antibody levels that are below the limit ofdetection of this assay.The [employer] HIV Ag/Ab Combo assay result andsupplemental assay results should be interpreted inconjunction with the patient's clinical presentation,history and other laboratory results. If the results areinconsistent with clinical evidence, additional testing issuggested to confirm the result. Blood Venous blood specimen / Unknown 07/12/2024 11:48 AM EDT 07/12/2024 1:35 PM EDT us Arnaldo Ghosh MD LAB BLOOD ORDERABLES Final Resul t Performing Organization Address [facility]/ZIP Co de Phone Number [facility] [address] [place] [phone] * Hepatitis B Surface Antibody, Qualitative (07/12/2024 11:48 AM EDT) ~Hepatitis B Surface Antibody NONREACTIVE Nonreactive [facility] Comment:Nonreactive: < 8.00 mIU/mL Blood Venous blood specimen / Unknown 07/12/2024 11:48 AM EDT 07/12/2024 1:35 PM EDT us Arnaldo Ghosh MD LAB BLOOD ORDERABLES Final Resul t Performing Organization Address [facility] Co de Phone Number [facility] [address] [place] [phone] * TSH W/Reflex to FT4 (07/12/2024 11:43 AM EDT) TSH reflex Free T4 0.71 0.32 - 4.0 uIU/mL [facility] Blood Venous blood specimen / Unknown 07/12/2024 11:43 AM EDT 07/12/2024 1:35 PM EDT us Arnaldo Name LAB BLOOD ORDERABLES Final Resul t [facility] [address] [place] [phone] [phone] from Last 3 Months Insurance [facility] C3 HSN PARTIAL Care Teams Lombardi Developer Relationship Specialty Start Date End Date Name, MD Arnaldo [address] [place] [phone] PCP - General Internal Medicine 07/12/24
== END 2024-08-03 11:32 | disposition home or self-care (01) ==
LOC: HO.HCC 11:00
PROVIDERS: Visit Provider Internal Medicine
DX: Z51.81 Encounter for therapeutic drug level monitoring (principal); F11.21 Opioid dependence, in remission
CPT/HCPCS: 99213

== ENCOUNTER → 2024-08-03 10:59 | Outpatient (BNVA) | payer MEDICAID, SELFPAY | PROVIDERS: Visit Provider Internal Medicine | DX: F11.21 Opioid dependence, in remission (principal) | CPT/HCPCS: 80307; 99212 ==

== ENCOUNTER 2024-09-11 14:50 | Emergency (ER) | payer MEDICAID, SELFPAY ==
--- NOTE | 2024-09-11 14:54 | ECG_ITS ---
Test Reason : PALPITATIONS Blood Pressure : */* mmHG Vent. Rate : 100 BPM Atrial Rate : 100 BPM P-R Int : 140 ms QRS Dur : 88 ms QT Int : 318 ms P-R-T Axes : 55 56 25 degrees QTcB Int : 410 ms Normal sinus rhythm Normal ECG When compared with ECG of 12-May-2023 12:30, No significant change was found Referred By: Kathy Estrada Electronically Signed By: DA PATEL MD
[2024-09-11 15:26] VITALS: BP 132/63; PULSE 84; RESP 18; TEMP 36.4; O2SAT 100; BMI 41.3
--- NOTE | 2024-09-11 15:27 | ED.GENADULT ---
HPI - General Adult General Chief complaint: Anxiety Stated complaint: Took Xanax, feels strange, heart racing Related Data Home Medications ?Medication ?Instructions ?Recorded ?Confirmed buspirone 10 mg tablet 10 mg PO BID 08/03/24 Previous Rx's ?Medication ?Instructions ?Recorded buprenorphine 8 mg-naloxone 2 mg 1 film sublingual DAILY #30 ea 05/30/24 sublingual film (Suboxone) buprenorphine 8 mg-naloxone 2 mg 1 film sublingual Q24H 30 days #30 08/03/24 sublingual film (Suboxone) ea hydroxyzine HCl 50 mg tablet 50 mg PO BID PRN for anxiety #60 08/15/24 tabs Allergies Allergy/AdvReac Type Severity Reaction Status Date / Time No Known Allergies Allergy Verified 09/11/24 15:29 [No Known Allergies*] PMFSH Social History Social History Advance Directives: No Advance Directives Information Provided: No Physical Exam ED Vital Signs: BMI result Body Mass Index 41.3 Course Course Course Narrative: This is a rapid medical exam performed by Dav Estrada NP: Additional HPI, ROS, PE not included below will be deferred to primary provider. Patient is a 24-year-old male with pmhx of OUD on suboxone, SOHA presenting with complaint of palpitations, chest pain, feeling weird after buying xanax on the street. States he bought this as he was feeling acute anxiety. Patient awake, alert and oriented x 3, speaking easily in full sentences, ambulatory with steady gait. Plan: EKG, labs Medical Decision Making Lab Data 09/11/24 15:37 09/11/24 15:37 Labs: Lab Results 09/11/24 Range/Units 15:37 WBC 8.5 (4.8-10.8) X10*3/uL RBC 5.40 (4.60-5.80) X10*6/uL Hgb 16.2 (14.0-18.0) g/dl Hct 45.9 (42.0-52.0) % MCV 85.0 (80.0-98.0) fL MCH 30.0 (27.0-33.0) pg MCHC 35.3 (31.0-36.0) g/dl RDW 12.5 (11.0-16.0) % Plt Count 249 (160-400) X10*3/uL MPV 10.3 (9.4-12.4) fL Immature Gran % (Auto) 0.1 (0.0-0.4) % Neut % (Auto) 66.4 (45-73) % Lymph % (Auto) 23.1 (20-40) % [place] % (Auto) 7.0 (2-11) % Eos % (Auto) 2.8 (0-4) % Baso % (Auto) 0.6 (0-2) % Lymph # (Auto) 2.0 (1.2-4.9) X10*3/uL [place] # (Auto) 0.6 (0.1-1.2) X10*3/uL Eos # (Auto) 0.2 (0.0-0.4) X10*3/uL Baso # (Auto) 0.1 (0.0-0.2) X10*3/uL Abs Immat Gran (auto) 0.01 (0.00-0.03) X10*3/uL Absolute Neuts (auto) 5.6 (2.0-8.3) x10*3/uL Absolute Nucleated RBC 0.000 (0.0-0.012) X10*3/uL Nucleated RBC % (auto) 0.0 (0.0-0.2) /100WBC Sodium 140 (135-145) mmol/L Potassium 4.6 D (3.3-5.1) mmol/L Chloride 103 (96-108) mmol/L Carbon Dioxide 31 H (22-29) mmol/L Anion Gap 11 L (12-20) BUN 10 (9-16) mg/dL Creatinine 1.05 (0.5-1.4) mg/dL Estim Creat Clear Calc 138.6 Estimated GFR > 60 Random Glucose 81 (60-115) mg/dL Calcium 10.2 D (8.4-10.2) mg/dL Magnesium 1.8 (1.6-2.6) mg/dL Total Bilirubin 0.6 (0.0-1.0) mg/dL AST 27 (5-37) U/L ALT 31 (0-40) U/L Alkaline Phosphatase 69 (39-117) U/L Troponin I High Sens < 2.7 (<3.5-35.0) ng/L Total Protein 7.5 (6.5-8.0) g/dL Albumin 4.4 (3.5-5.0) g/dL Discharge Plan Discharge Clinical Impression: Acute anxiety Patient Disposition: Left W/O Completing Treatment Prescriptions: No Action buprenorphine-naloxone [Suboxone] 8-2 mg film 1 film sublingual DAILY Qty: 30 1RF hydroxyzine HCl 50 mg tablet 50 mg PO BID PRN (Reason: for anxiety) Qty: 60 1RF buspirone 10 mg tablet 10 mg PO BID buprenorphine-naloxone [Suboxone] 8-2 mg film 1 film sublingual Q24H 30 Days Qty: 30 1RF Discharge Date/Time: 09/11/24 18:29
[2024-09-11 15:39] LABS: MANUAL DIFF FLAG NO
[2024-09-11 15:43] LABS: Basophils Absolute Auto 0.1 X10*3/uL (0.0-0.2); Basophils Percent Auto 0.6 % (0-2); Eosinophils Absolute Auto 0.2 X10*3/uL (0.0-0.4); Eosinophils Percent Auto 2.8 % (0-4); Hematocrit 45.9 % (42.0-52.0); Hemoglobin 16.2 g/dl (14.0-18.0); Imm Gran Abs Auto 0.01 X10*3/uL (0.00-0.03); Imm Gran Pct Auto 0.1 % (0.0-0.4); Lymphocytes Percent Auto 23.1 % (20-40); Mean Corpuscular HGB Conc 35.3 g/dl (31.0-36.0); Mean Platelet Volume 10.3 fL (9.4-12.4); Monocytes Absolute Auto 0.6 X10*3/uL (0.1-1.2); Neutrophils Absolute Auto 5.6 x10*3/uL (2.0-8.3); Neutrophils Percent Auto 66.4 % (45-73); Platelet Count 249 X10*3/uL (160-400); Red Cell Distribution Width 12.5 % (11.0-16.0); White Blood Count 8.5 X10*3/uL (4.8-10.8)
[2024-09-11 16:10] LABS: Alanine Aminotransferase 31 U/L (0-40); Albumin Level 4.4 g/dL (3.5-5.0); Anion Gap 11 (12-20); Aspartate Amino Transferase 27 U/L (5-37); Bilirubin Total 0.6 mg/dL (0.0-1.0); Blood Urea Nitrogen 10 mg/dL (9-16); Calcium 10.2 mg/dL (8.4-10.2); Carbon Dioxide 31 mmol/L (22-29); Chloride 103 mmol/L (96-108); Creatinine Clr Calc Pharmacy 138.6; Estimated Glomerular Filt Rate > 60; Glucose Random 81 mg/dL (60-115); Magnesium 1.8 mg/dL (1.6-2.6); Potassium 4.6 mmol/L (3.3-5.1); Sodium 140 mmol/L (135-145); Total Protein 7.5 g/dL (6.5-8.0); Troponin-I High Sensitivity < 2.7 ng/L (<3.5-35.0)
[2024-09-11 16:40] LABS: Alkaline Phosphatase 69 U/L (39-117)
== END 2024-09-11 18:29 | disposition left against medical advice (07) ==
PROVIDERS: Registered Nurse Emergency; Emergency Provider Emergency Medicine
DX: F41.9 Anxiety disorder, unspecified (principal); R00.2 Palpitations
CPT/HCPCS: 36415; 80053; 83735; 84484; 85025; 93005; 99283

== ENCOUNTER → 2024-09-11 14:54 | Outpatient (BNV) | payer MEDICAID, SELFPAY | PROVIDERS: Emergency Provider Emergency Medicine; Visit Provider Internal Medicine Cardiovascular Disease | DX: R00.2 Palpitations (principal) | CPT/HCPCS: 93010 ==

== ENCOUNTER 2024-10-03 13:01 | Outpatient (AMB) | payer MEDICAID, SELFPAY ==
--- NOTE | 2024-10-03 13:04 | MHC.OFFVIS ---
Vital Signs 10/03/24 13:06 Height 5 ft 8 in Pulse 94 Pulse Source Pulse Oximeter Pulse Oximetry (%) 99 Oxygen Delivery Method Room Air Intake Visit Reasons: mat Allergies No Known Allergies [No Known Allergies*] Allergy (Verified 10/03/24 13:06) HPI HPI mat: Details: He reports [facility] refused to give him his refill although I showed him we did order it. He says he called here and didnt get response but doesnt remember who he talked to. He has been borrowing med from brother. Review of Systems Const All systems reviewed & are unremarkable except as noted in HPI and below Physical Exam Vital Signs: Last Vital Signs Pulse 94 10/03/24 13:06 Pulse Ox 99 10/03/24 13:06 Oxygen Delivery Method Room Air 10/03/24 13:06 Const General: cooperative Assessment & Plan Assessment & Plan (1) Opioid use disorder, moderate, in sustained remission: Comment: He unfortunately has been borrowing med from relative. He has not been using however Code(s): F11.21 - Opioid dependence, in remission Category: Medical Plan Discuss with pharmacy so this doesnt happen again He prefers tablets since had in long-term and strips cause mouth burning and dental problems. One month 8/2 daily and one refill given. He denies need for counseling. Medications: New buprenorphine-naloxone 8-2 mg 1 tab sublingual DAILY 30 tabs 1RF 30 days Coding Level of Care Code Est Pt Level 3 (26849) Diagnoses Opioid use disorder, moderate, in sustained remission F11.21
[2024-10-03 13:06] VITALS: PULSE 94; O2SAT 99
--- OUTSIDE RECORDS SUMMARY | 2024-10-03 13:22 | XMS_ITS | Clinical Summary ---
Author Organization [facility] Address [address] [place] [address] Care Team Providers Care Internal Combustion Engine Assembler Name Role Phone Pcp, No Primary Care Provider Unavailabl e Allergies No known active allergies Medications ciprofloxacin-h ydrocortisone (CIPRO HC) 0.2-1 % otic suspension Three [...] Assigned at Male 06/23/2023 12:46 AM EST Legal Sex Male 7:06 PM EST Gender Identity Male 06/23/2023 12:46 AM [...] of 3 - 19+ 3-dose series) 07/02/2019 COVID-19 Vaccine (1 - 2023-2 5 season) 2024 Influenza Vaccine 11/30/2024 HIV Screening Completed 01/07/2024 Hepatitis C Virus [...] 0.79 S/CO ratio 01/09/2024 11:[address] [facility] Hepatitis C Antibody Interpretation Nonreactive Nonreactive 01/09/2024 11:[address] [facility] Comment:Antibodies to HCV no t detected. This does not exclude the possibility of exposure to HCV. Blood (Plasma/Serum) 01/07/2024 12:18 PM EDT 01/07/2024 12:35 PM EDT Kim HERNANDES LAB BLOOD ORDERABLES Final Result Performing Organization Address [facility] Co de Phone Number [facility] [address] * HIV 1/2 Ag/Ab CMIA Reflex to Confirmation (01/07/2024 12:18 PM EDT) HIV 1/2 Ag/Ab CMIA Nonreactive Nonreactive 01/09/2024 11:[address] [facility] Comment: Results show no evidence of infection by HIV 1/2. If clinically indicated, repeat CMIA or test by nucleic acid amplification. HIV 1/2 Antigen/Antibody CMIA reflex to confirmation AND HIV-1 RNA viral load recommended in patients who are taking or have recently taken PrEP. Blood Serum specimen / Unknown 01/07/2024 12:18 PM EDT 01/07/2024 12:35 PM EDT Kim HERNANDES LAB BLOOD ORDERABLES Final Result Performing Organization Address [facility] Co de Phone Number [facility] [address] from Last 3 Months or Most Recently Relevant to Health Maintenance Insurance [facility] Care Teams Internal Combustion Engine Assembler Relationship Specialty Start Date End Date Pcp, No PCP - General 06/23/23
== END 2024-10-03 13:28 | disposition home or self-care (01) ==
LOC: HO.HCC 13:02
PROVIDERS: Visit Provider Internal Medicine
DX: F11.21 Opioid dependence, in remission (principal)
CPT/HCPCS: 99213

== ENCOUNTER → 2024-10-03 13:01 | Outpatient (BNVA) | payer MEDICAID, SELFPAY | PROVIDERS: Visit Provider Internal Medicine | DX: F11.21 Opioid dependence, in remission (principal) | CPT/HCPCS: 99212 ==

== ENCOUNTER 2024-12-05 11:00 | Outpatient (AMB) | payer MEDICAID, SELFPAY ==
[2024-12-05 11:09] VITALS: BP 122/70; PULSE 90; O2SAT 97; BMI 41.2
--- NOTE | 2024-12-05 11:09 | A.OFFVIS_ITS ---
Vital Signs 12/05/24 11:09 Height 5 ft 8 in Weight 271 lb BMI 41.2 BP 122/70 Pulse 90 Pulse Oximetry (%) 97 Intake Visit Reasons: Mat Allergies No Known Allergies (No Known Allergies*) Allergy (Verified 12/05/24 11:10) HPI Comments Details: The patient is a 24-year-old male presents for follow-up visit for substance use disorder in sustained remission with use of buprenorphine-naloxone 8-2 mg daily. Denies use of opiates and other substances does report intermittent alcohol use, smoking marijuana and vaping on a daily basis. Review of Systems Const All systems reviewed & are unremarkable except as noted in HPI and below Physical Exam Vital Signs: Last Vital Signs Pulse 90 12/05/24 11:09 BP 122/70 12/05/24 11:09 Pulse Ox 97 12/05/24 11:09 BMI result Body Mass Index 41.2 Const General: cooperative and well groomed Orientation/consciousness: patient oriented x3 Limitations: no limitations Neuro General: patient oriented x3 Psych Appearance: well kempt Mental Status: mental status grossly normal Speech and movement: Normal speech and movement present Affect: normal affect Attitude: cooperative Thought process: Normal thought process present Thought content: Normal thought content present Insight: Good insight present (Psych) Judgement: Good judgement present (Psych) Assessment & Plan Assessment & Plan (1) Opioid use disorder, moderate, in sustained remission: Code(s): F11.21 - Opioid dependence, in remission Category: Medical Plan: Plan The plan of care is to continue with buprenorphine-naloxone 8-2 mg tablet daily and follow up in two months or sooner, if needed. Orders: Orders Liver Panel Today F11.21 - Opioid dependence, in remission Medications: Refilled buprenorphine-naloxone 8-2 mg 1 tab sublingual DAILY 30 tabs 1RF 30 days Patient Instructions: - Continue with buprenorphine-naloxone 8-2 mg as prescribed. - Lab ordered for liver panel. - Follow up in two months or sooner, if needed. - Call with questions, concerns, or to report side effects/new onset of symptoms to [facility] - The patient verbalized understanding and agreed with plan of care. Coding Level of Care Code Est Pt Level 3 (31773) Diagnoses Opioid use disorder, moderate, in sustained remission F11.21
--- OUTSIDE RECORDS SUMMARY | 2024-12-05 11:43 | XMS_ITS | Clinical Summary ---
Author Organization [facility] Address [address] [place] [address] Care Team Providers Care District Recruiter Name Role Phone Pcp, No Primary Care [...] 92 02/14/2024 2:19 AM EDT Temperature 37.2 C (98.9 F) 02/14/2024 12:43 AM EDT Respiratory Rate 18 02/14/2024 2:19 AM EDT [...] - 19+ 3-dose series) 07/02/2019 COVID-19 Vaccine ( - 2023-2 5 season) 2024 Influenza Vaccine [...] 0.79 S/CO ratio 01/09/2024 11:18 AM EDT [facility] Hepatitis C Antibody Interpretation Nonreactive Nonreactive 01/09/2024 11:18 AM EDT [facility] Comment:Antibodies to HCV no t detected. This does not exclude the possibility of exposure to HCV. Blood (Plasma/Serum) 01/07/2024 12:18 PM EDT 01/07/2024 12:35 PM EDT Kim HERNANDES LAB BLOOD ORDERABLES Final Result Performing Organization Address [facility] Co de Phone Number [facility] [address] * HIV 1/2 Ag/Ab CMIA Reflex to Confirmation (01/07/2024 12:18 PM EDT) HIV 1/2 Ag/Ab CMIA Nonreactive Nonreactive 01/09/2024 11:18 AM EDT [facility] Comment: Results show no evidence [...] BLOOD ORDERABLES Final Result Performing Organization Address [facility] Co de Phone Number [facility] [address] from Last 3 Months or Most Recently Relevant to Health Maintenance Insurance [facility] Care Teams District Recruiter Relationship Specialty Start Date End Date Pcp, No PCP - General 06/23/23
--- OUTSIDE RECORDS SUMMARY | 2024-12-05 11:44 | XMS_ITS ---
Author Name [facility] Organization Unknown Results Test Name/Text Value Interpretation Date Range Source Troponin T SerPl-mCnc <6.0 ng/L Normal 02/08/2024 - 23 [facility] Delta NO PREVIOUS RESULT Normal 02/08/2024 - 3 [facility] Chloride SerPl-sCnc 96.0 mmol/L Below low normal 02/08/2024 98 - 107 [facility]CT Creat SerPl-mCnc 0.9 mg/dL Normal 02/08/2024 0.5 - 1.3 HH CCT Globulin Ser Calc-mCnc 3.9 g/dL Normal 02/08/2024 1.5 - 3.9 H[facility]CT Prot SerPl-mCnc 8.2 g/dL Normal 02/08/2024 6.3 - 8.[address] Albumin SerPl-mCnc 4.3 g/dL Normal 02/08/2024 3.5 - 5 [facility] Glucose SerPl-mCnc 107.0 mg/dL Above high normal 02/08/2024 65 - 99 [facility]CT Albumin/Glob SerPl 1.1 Ratio Normal 02/08/2024 1 - 3 [facility] BUN SerPl-mCnc 10.0 mg/dL Normal 02/08/2024 8 - [address] AST SerPl-cCnc 27.0 U/L Normal 02/08/2024 10 - 55 HHCC T BUN/Creat SerPl 11.0 Ratio Normal 02/08/2024 10 - 25 HH CCT ALP SerPl-cCnc 101.0 U/L Normal 02/08/2024 45 - 128 HHCC T Sodium SerPl-sCnc 132.0 mmol/L Below low normal 02/08/2024 1 36 - 145 H[facility]CT Potassium SerPl-sCnc 3.6 mmol/L Normal 02/08/2024 3.4 - 5 .3 H[facility]CT Anion Gap Bld-sCnc 10.0 Normal 02/08/2024 7 - 17 H[facility]CT GFR/BSA.pred SerPlBld VDE-IAC-BtGHll >90.0 Normal 02/08/2024 59 - HHCCT Calcium SerPl-mCnc 9.6 mg/dL Normal 02/08/2024 8.7 - 10.5 HHCCT ALT SerPl-cCnc 40.0 U/L Normal 02/08/2024 10 - 55 HHCC T Bilirub SerPl-mCnc 0.6 mg/dL Normal 02/08/2024 0.2 - 1 HHCCT CO2 SerPl-sCnc 26.0 mmol/L Normal 02/08/2024 22 - 33 HH CCT Monocytes/leuk NFr Bld Auto 7.3 % Normal 02/08/2024 H[facility]CT Eosinophil num Bld Auto 0.07 Thou/uL Normal 02/08/2024 0 - 0.7 H[facility]CT Hgb Bld-mCnc 15.6 g/dL Normal 02/08/2024 13 - 17.7 HHCCT Imm Granulocytes/leuk NFr Bld Auto 0.3 % Normal 02/08/2024 H[facility]CT MCHC RBC Auto-mCnc 35.2 g/dL Normal 02/08/2024 30 - 36 [facility]CT Neutrophils num Bld Auto 6.09 Thou/uL Normal 02/08/2024 2 - 7.5 H[facility]CT RDW RBC Auto-Rto 12.1 % Normal 02/08/2024 11.5 - 14.5 H[facility]CT Lymphocytes num Bld Auto 2.19 Thou/uL Normal 02/08/2024 1.5 - 4.5 H[facility]CT MCV RBC Auto 86.0 fL Normal 02/08/2024 80 - 100 [facility] PMV Bld Auto 10.3 fL Normal 02/08/2024 7.5 - 12.5 H[facility]CT WBC num Bld Auto 9.1 Thou/uL Normal 02/08/2024 4 - 11 [facility]CT Lymphocytes/leuk NFr Bld Auto 24.1 % Normal 02/08/2024 [facility]CT Basophils num Bld Auto 0.03 Thou/uL Normal 02/08/2024 0 - 0.2 H[facility]CT Hct VFr Bld Auto 44.3 % Normal 02/08/2024 39 - 54 HH CCT Platelet num Bld Auto 243.0 Thou/uL Normal 02/08/2024 150 - 450 [facility] Monocytes num Bld Auto 0.66 Thou/uL Normal 02/08/2024 0.2 - 1.5 H[facility]CT Neutrophils/leuk NFr Bld Auto 67.2 % Normal 02/08/2024 [facility]CT Basophils/leuk NFr Bld Auto 0.3 % Normal 02/08/2024 [facility]CT MCH RBC Qn Auto 30.1 pg Normal 02/08/2024 26 - [address] Imm Granulocytes num Bld Auto 0.03 Thou/uL Normal 02/08/2024 0 - 0.1 [facility]CT RBC num Bld Auto 5.18 Mil/uL Normal 02/08/2024 4.5 - 6.2 [facility]CT Eosinophil/leuk NFr Bld Auto 0.8 % Normal 02/08/2024 [facility]CT Troponin T SerPl-mCnc <6.0 ng/L Normal 01/14/2024 - 23 [facility] Delta NO PREVIOUS RESULT Normal 01/14/2024 - 3 [facility]CT Chloride SerPl-sCnc 99.0 mmol/L Normal 01/14/2024 98 - 10 7 H[facility]CT Glucose SerPl-mCnc 88.0 mg/dL Normal 01/14/2024 65 - 99 H[facility]CT Creat SerPl-mCnc 0.9 mg/dL Normal 01/14/2024 0.5 - 1.3 HH CCT Prot SerPl-mCnc 7.9 g/dL Normal 01/14/2024 6.3 - 8.[address] Albumin/Glob SerPl 1.3 Ratio Normal 01/14/2024 1 - 3 [facility]CT Calcium SerPl-mCnc 9.9 mg/dL Normal 01/14/2024 8.7 - 10.5 HHCCT GFR/BSA.pred SerPlBld FLI-ZEO-PeEWnt >90.0 Normal 01/14/2024 59 - HHCCT BUN/Creat SerPl 9.0 Ratio Below low normal 01/14/2024 10 - 2 5 HHCCT BUN SerPl-mCnc 8.0 mg/dL Normal 01/14/2024 8 - 21 HHCC T ALP SerPl-cCnc 88.0 U/L Normal 01/14/2024 45 - 128 HHCC T Potassium SerPl-sCnc 3.9 mmol/L Normal 01/14/2024 3.4 - 5 .3 HHCCT Anion Gap Bld-sCnc 6.0 Below low normal 01/14/2024 7 - 17 HHCCT AST SerPl-cCnc 27.0 U/L Normal 01/14/2024 10 - 55 HHCC T Sodium SerPl-sCnc 137.0 mmol/L Normal 01/14/2024 136 - 14 5 HHCCT ALT SerPl-cCnc 41.0 U/L Normal 01/14/2024 10 - 55 HHCC T Bilirub SerPl-mCnc 0.4 mg/dL Normal 01/14/2024 0.2 - 1 H[facility]CT Albumin SerPl-mCnc 4.4 g/dL Normal 01/14/2024 3.5 - 5 HHCCT CO2 SerPl-sCnc 32.0 mmol/L Normal 01/14/2024 22 - 33 HH CCT Globulin Ser Calc-mCnc 3.5 g/dL Normal 01/14/2024 1.5 - 3.9 HHCCT Monocytes/leuk NFr Bld Auto 6.1 % Normal 01/14/2024 HHCCT MCHC RBC Auto-mCnc 35.1 g/dL Normal 01/14/2024 30 - 36 HHCCT Hct VFr Bld Auto 44.4 % Normal 01/14/2024 39 - 54 HH CCT Hgb Bld-mCnc 15.6 g/dL Normal 01/14/2024 13 - 17.7 HHCCT Imm Granulocytes/leuk NFr Bld Auto 0.2 % Normal 01/14/2024 HHCCT PMV Bld Auto 10.2 fL Normal 01/14/2024 7.5 - 12.5 HHCCT Neutrophils num Bld Auto 7.1 Thou/uL Normal 01/14/2024 2 - 7.5 H[facility]CT Neutrophils/leuk NFr Bld Auto 64.2 % Normal 01/14/2024 [facility]CT Platelet num Bld Auto 252.0 Thou/uL Normal 01/14/2024 150 - 450 H[facility]CT MCV RBC Auto 86.0 fL Normal 01/14/2024 80 - 100 H[facility]CT Basophils/leuk NFr Bld Auto 0.3 % Normal 01/14/2024 HHCCT RDW RBC Auto-Rto 11.9 % Normal 01/14/2024 11.5 - 14.5 HHCCT Lymphocytes num Bld Auto 3.17 Thou/uL Normal 01/14/2024 1.5 - 4.5 HHCCT Eosinophil num Bld Auto 0.07 Thou/uL Normal 01/14/2024 0 - 0.7 HHCCT RBC num Bld Auto 5.15 Mil/uL Normal 01/14/2024 4.5 - 6.2 HHCCT Imm Granulocytes num Bld Auto 0.02 Thou/uL Normal 01/14/2024 0 - 0.1 HHCCT Monocytes num Bld Auto 0.68 Thou/uL Normal 01/14/2024 0.2 - 1.5 HHCCT Lymphocytes/leuk NFr Bld Auto 28.6 % Normal 01/14/2024 HHCCT WBC num Bld Auto 11.1 Thou/uL Above high normal 01/14/2024 4 - 11 HHCCT MCH RBC Qn Auto 30.3 pg Normal 01/14/2024 26 - [address] Eosinophil/leuk NFr Bld Auto 0.6 % Normal 01/14/2024 HHCCT Basophils num Bld Auto 0.03 Thou/uL Normal 01/14/2024 0 - 0.2 HHCCT Troponin T SerPl-mCnc <6.0 ng/L Normal 01/10/2024 - 23 [facility]CT Delta NO CHANGE Normal 01/10/2024 - 3 H[facility]CT Lipase SerPl-cCnc 20.0 U/L Normal 01/10/2024 13 - 60 H HCCT BUN SerPl-mCnc 10.0 mg/dL Normal 01/10/2024 8 - [address] ALT SerPl-cCnc 37.0 U/L Normal 01/10/2024 10 - 55 HHCC T Anion Gap Bld-sCnc 9.0 Normal 01/10/2024 7 - 17 HHCCT Prot SerPl-mCnc 7.6 g/dL Normal 01/10/2024 6.3 - 8.[address] Globulin Ser Calc-mCnc 3.5 g/dL Normal 01/10/2024 1.5 - 3.9 HHCCT AST SerPl-cCnc 27.0 U/L Normal 01/10/2024 10 - 55 HHCC T BUN/Creat SerPl 10.0 Ratio Normal 01/10/2024 10 - 25 HH CCT Calcium SerPl-mCnc 9.6 mg/dL Normal 01/10/2024 8.7 - 10.5 HHCCT Albumin SerPl-mCnc 4.1 g/dL Normal 01/10/2024 3.5 - 5 HHCCT ALP SerPl-cCnc 93.0 U/L Normal 01/10/2024 45 - 128 HHCC T Chloride SerPl-sCnc 100.0 mmol/L Normal 01/10/2024 98 - 1 07 HHCCT Albumin/Glob SerPl 1.2 Ratio Normal 01/10/2024 1 - 3 HHCCT Glucose SerPl-mCnc 91.0 mg/dL Normal 01/10/2024 65 - 99 H[facility]CT Sodium SerPl-sCnc 135.0 mmol/L Below low normal 01/10/2024 1 36 - 145 HHCCT GFR/BSA.pred SerPlBld CQS-VLV-ZpTMdm >90.0 Normal 01/10/2024 59 - HHCCT CO2 SerPl-sCnc 26.0 mmol/L Normal 01/10/2024 22 - 33 HH CCT Creat SerPl-mCnc 1.0 mg/dL Normal 01/10/2024 0.5 - 1.3 HH CCT Bilirub SerPl-mCnc 0.3 mg/dL Normal 01/10/2024 0.2 - 1 HHCCT Potassium SerPl-sCnc 4.2 mmol/L Normal 01/10/2024 3.4 - 5 .3 HHCCT Delta NO PREVIOUS RESULT Normal 01/10/2024 - 3 HHCCT Troponin T SerPl-mCnc <6.0 ng/L Normal 01/10/2024 - 23 HHCCT D dimer FEU PPP-mCnc <150.0 ng/mL DDU Normal 01/10/2024 - 230 HHCCT RDW RBC Auto-Rto 11.8 % Normal 01/10/2024 11.5 - 14.5 HHCCT Neutrophils/leuk NFr Bld Auto 70.5 % Normal 01/10/2024 HHCCT Basophils num Bld Auto 0.03 Thou/uL Normal 01/10/2024 0 - 0.2 HHCCT Hct VFr Bld Auto 44.1 % Normal 01/10/2024 39 - 54 HH CCT Eosinophil/leuk NFr Bld Auto 0.7 % Normal 01/10/2024 HHCCT Monocytes/leuk NFr Bld Auto 6.7 % Normal 01/10/2024 HHCCT MCH RBC Qn Auto 30.3 pg Normal 01/10/2024 26 - [address] Hgb Bld-mCnc 15.5 g/dL Normal 01/10/2024 13 - 17.7 HHCCT Lymphocytes/leuk NFr Bld Auto 21.7 % Normal 01/10/2024 HHCCT Imm Granulocytes/leuk NFr Bld Auto 0.2 % Normal 01/10/2024 HHCCT Eosinophil num Bld Auto 0.09 Thou/uL Normal 01/10/2024 0 - 0.7 HHCCT Imm Granulocytes num Bld Auto 0.03 Thou/uL Normal 01/10/2024 0 - 0.1 HHCCT Basophils/leuk NFr Bld Auto 0.2 % Normal 01/10/2024 [facility]CT Platelet num Bld Auto 250.0 Thou/uL Normal 01/10/2024 150 - 450 H[facility]CT MCHC RBC Auto-mCnc 35.1 g/dL Normal 01/10/2024 30 - 36 HHCCT Neutrophils num Bld Auto 8.57 Thou/uL Above high normal 01/10/2024 2 - 7.5 HHCCT RBC num Bld Auto 5.12 Mil/uL Normal 01/10/2024 4.5 - 6.2 HHCCT WBC num Bld Auto 12.2 Thou/uL Above high normal 01/10/2024 4 - 11 HHCCT PMV Bld Auto 10.4 fL Normal 01/10/2024 7.5 - 12.5 HHCCT Monocytes num Bld Auto 0.82 Thou/uL Normal 01/10/2024 0.2 - 1.5 HHCCT Lymphocytes num Bld Auto 2.65 Thou/uL Normal 01/10/2024 1.5 - 4.5 HHCCT MCV RBC Auto 86.0 fL Normal 01/10/2024 80 - 100 [facility]CT Amphetamines Ur Ql Negative Normal 01/10/2024 - [facility] Cannabinoids Ur Ql Scn>50 ng/mL Negative Normal 01/10/2024 - [facility] Opiates Ur Ql Scn>300 ng/mL Negative Normal 01/10/2024 - [facility] BZE Ur Ql Negative Normal 01/10/2024 - [facility] PCP Ur Ql Scn>25 ng/mL Negative Normal 01/10/2024 - [facility] Benzodiaz Ur Ql Scn>200 ng/mL Negative Normal 01/10/2024 - [facility] 2019-nCOV RNA Not Detected Normal 01/10/2024 [facility] Specimen source XXX Nasopharyngeal Normal 01/10/2024 [facility] C trach rRNA XXX Ql PIERCE+probe Negative Normal 01/09/2024 - [facility] N gonorrhoea rRNA XXX Donr Ql PCR Negative Normal 01/09/2024 - [facility] T. pallidum IgG+IgM Ser QI IA Nonreactive Normal 01/09/2024 - [facility] HCV Ab s/co SerPl EIA 0.22 S/CO ratio Normal 01/09/2024 0 - 0.79 [facility] Hepatitis C Ab Interpretation Nonreactive Normal 01/09/2024 - [facility] HIV 1+2 Ab+HIV1 p24 Ag Ser EIA-aCnc Nonreactive Normal 01/09/2024 - [facility] Encounters Encounter Type Encounter Reason Primary Diagnosis Location Date Emergency Panic disorder (episodic paroxysmal anxiety) Panic disorder (episodic paroxysmal anxiety) [facility] 02/14/2024 Emergency Chest pain, unspecified Chest pain, unspecified [facility] 02/08/2024 Emergency Chest pain, unspecified Chest pain, unspecified [facility] 01/13/2024 Emergency Anxiety disorder, unspecified Anxiety disorder, unspecified [facility] 01/10/2024 Emergency Contact with and (suspected) exposure to infections with a predominantly sexual mode of transmission Contact with and (suspected) exposure to infections with a predominantly sexual mode of transmission [facility] 01/07/2024 Emergency Encounter for remova l of sutures Encounter for removal of sutures [facility] 10/10/2023 Emergency Unspecified otitis externa, unspecified ear Unspecified otitis externa, unspecified ear [facility] 09/01/2023 Emergency Anxiety disorder, unspecified Anxiety disorder, unspecified [facility] 08/01/2023 Emergency Chest pain, unspecified Chest pain, unspecified [facility] 07/14/2023 Emergency Chest pain, unspecified Chest pain, unspecified [facility] 06/28/2023 Emergency Other chest pain Other chest pain [email or web address] Care Team Organization Name Specialty Phone Email Start Date End Da te [facility] NO PCP Primary Care 06/23/2023 [facility] 06/23/2023 07/18/2024 [facility] 06/23/2023
== END 2024-12-05 11:37 | disposition home or self-care (01) ==
LOC: HO.HCC 11:00
PROVIDERS: Visit Provider Clinical Nurse Specialist Psychiatric/Mental Health
DX: F11.21 Opioid dependence, in remission (principal)
CPT/HCPCS: 99213

== ENCOUNTER → 2024-12-05 11:00 | Outpatient (BNVA) | payer MEDICAID, SELFPAY | PROVIDERS: Visit Provider Clinical Nurse Specialist Psychiatric/Mental Health | DX: F11.21 Opioid dependence, in remission (principal); F10.20 Alcohol dependence, uncomplicated; F12.20 Cannabis dependence, uncomplicated; Z79.899 Other long term (current) drug therapy | CPT/HCPCS: 99212 ==

== ENCOUNTER 2024-12-29 22:18 | Emergency (ER) | payer MEDICAID, SELFPAY ==
--- NOTE | ~2024-12-29 | XR_ITS ---
CLINICAL HISTORY: chest px 1 view chest x-ray. Comparison: None provided. Findings: No consolidation, pneumothorax, or effusion. Heart size normal. Impression: 1. No acute cardiopulmonary process. No focal pulmonary consolidation. This document has been electronically signed by: Bg Rodas MD on 12/30/2024 00:23:01
--- NOTE | 2024-12-29 22:20 | ECG_ITS ---
Test Reason : CHEST PAIN Blood Pressure : */* mmHG Vent. Rate : 82 BPM Atrial Rate : 82 BPM P-R Int : 152 ms QRS Dur : 90 ms QT Int : 350 ms P-R-T Axes : 66 60 35 degrees QTcB Int : 408 ms Normal sinus rhythm with sinus arrhythmia Normal ECG When compared with ECG of 11-Sep-2024 15:04, No significant change was found Referred By: Generic ED Physician Electronically Signed By: IRAIS KAN
[2024-12-29 22:25] VITALS: BP 139/63; PULSE 78; RESP 18; TEMP 36.6; O2SAT 100; BMI 41.0
[2024-12-29 23:00] LABS: MANUAL DIFF FLAG NO
[2024-12-29 23:01] LABS: Hematocrit 44.6 % (42.0-52.0); Hemoglobin 16.3 g/dl (14.0-18.0); Imm Gran Abs Auto 0.05 X10*3/uL (0.00-0.03); Imm Gran Pct Auto 0.4 % (0.0-0.4); Lymphocytes Absolute Auto 1.7 X10*3/uL (1.2-4.9); Mean Corpuscular HGB Conc 36.5 g/dl (31.0-36.0); Mean Corpuscular Hemoglobin 31.4 pg (27.0-33.0); Mean Corpuscular Volume 85.9 fL (80.0-98.0); NRBC Abs Auto 0.000 X10*3/uL (0.0-0.012); NRBC Pct Auto 0.0 /100WBC (0.0-0.2); Platelet Count 245 X10*3/uL (160-400); Red Blood Count 5.19 X10*6/uL (4.60-5.80); White Blood Count 13.7 X10*3/uL (4.8-10.8)
[2024-12-29 23:15] LABS: Alanine Aminotransferase 36 U/L (0-40); Albumin Level 4.7 g/dL (3.5-5.0); Alkaline Phosphatase 85 U/L (39-117); Anion Gap 13 (12-20); Aspartate Amino Transferase 29 U/L (5-37); Blood Urea Nitrogen 14 mg/dL (9-16); Calcium 9.4 mg/dL (8.4-10.2); Carbon Dioxide 28 mmol/L (22-29); Chloride 104 mmol/L (96-108); Creatinine Clr Calc Pharmacy 118.8; Estimated Glomerular Filt Rate > 60; Magnesium 2.1 mg/dL (1.6-2.6); Potassium 3.7 mmol/L (3.3-5.1); Sodium 141 mmol/L (135-145); Total Protein 8.1 g/dL (6.5-8.0)
[2024-12-29 23:25] LABS: Troponin-I High Sensitivity < 2.7 ng/L (<3.5-35.0)
--- NOTE | 2024-12-29 23:41 | PC.NURSE ---
pt confirms chest pain radiating to L arm and back, has happened in the past, he feels it happens often, this time the pain was worse, 10/10 pain, mild SOB at first , resolved now. Took ibuprofen hours ago, unsure if it helped. does not see a it programmer. respirations even and unlabored.
--- OUTSIDE RECORDS SUMMARY | 2024-12-30 00:35 | XMS_ITS | Clinical Summary ---
Author Organization [facility] Address [address] [place] [address] Care Team Providers Care Medical Affairs Director Name Role Phone Pcp, No Primary Care [...] 0.79 S/CO ratio 01/09/2024 11:18 AM EDT [facility] Hepatitis C Antibody Interpretation Nonreactive Nonreactive 01/09/2024 11:18 AM EDT [facility] Comment:Antibodies to HCV no t detected. This does not exclude the possibility of exposure to HCV. Blood (Plasma/Serum) 01/07/2024 12:18 PM EDT 01/07/2024 12:35 PM EDT Kim HERNANDES LAB BLOOD ORDERABLES Final Result Performing Organization Address [facility] Co de Phone Number [facility] [address] * HIV 1/2 Ag/Ab CMIA Reflex to Confirmation (01/07/2024 12:18 PM EDT) HIV 1/2 Ag/Ab CMIA Nonreactive Nonreactive 01/09/2024 11:18 AM EDT [facility] Comment: Results show no [...] BLOOD ORDERABLES Final Result Performing Organization Address [facility] Co de Phone Number [facility] [address] from Last 3 Months or Most Recently Relevant to Health Maintenance Insurance [facility] Care Teams Medical Affairs Director Relationship Specialty Start Date End Date Pcp, No PCP - General 06/23/23
--- NOTE | 2024-12-30 00:36 | ED_ITS ---
HPI - Chest Pain General Chief Complaint: Chest Pain Stated Complaint: chest pain Time Seen by Provider: 12/30/24 00:17 Source: patient Mode of arrival: ambulatory Limitations: no limitations History of Present Illness ED Provider: Dr. Choe [facility] narrative: 24-year-old male presented hospital today for evaluation of left-sided chest pain. It is reproducible on exam. Patient stated he has been on and off. He does not notice any exacerbation factor. Patient does admit to smoking. Assigned he felt this pain he uses cocaine. However he is no longer using cocaine. Denies any trauma to his chest. Patient states he does feel some shortness of breath Related Data Home Medications ?Medication ?Instructions ?Recorded ?Confirmed buspirone 10 mg tablet 10 mg PO BID 08/03/24 Previous Rx's ?Medication ?Instructions ?Recorded hydroxyzine HCl 50 mg tablet 50 mg PO BID PRN for anxi ety #60 08/15/24 tabs buprenorphine 8 mg-naloxone 2 mg 1 tab sublingual JESSICA Y 30 days #30 12/05/24 sublingual tablet tabs acetaminophen 325 mg tablet 650 mg (2 x 325 mg) PO Q8H #21 tabs 12/30/24 (Tylenol) ibuprofen 200 mg capsule 400 mg (2 x 200 mg) PO Q8H 5 days 12/30/24 #30 caps lidocaine 4 % topical patch 1 patch topical DAILY PRN pain #10 12/30/24 (AsperFlex (lidocaine)) ea Allergies Allergy/AdvReac Type Severity Reaction Status Date / Time No Known Allergies (No Known Allergy Verified 12/29/24 22:27 Allergies*) Review of Systems 2 Review of Systems: Pertinent review of systems as mentioned in [facility]. All other system otherwise negative. [facility] Past Medical History [facility] Narrative: Medical history as mentioned in [facility] Social History Social History Smoked in Last 30 Days: Yes Use of substances other than those prescribed or required for medical reasons: Yes Substance Use Type: Marijuana Advance Directives: No Do you have a plan to hurt others: No Plan Physical Exam 2 Exam: Exam: General: Pleasant, no distress, interacting appropriately Head: Normacephalic, atraumatic ENT: oral mucosa moist, neck supple, no tracheal deviation Cardiovascular: regular rate, regular rhythm, no murmurs, rubbing, gallops, reproducible left-sided chest wall tenderness on palpation Respiratory: CTAB, no wheeze, rales, rhonchi Skin: Warm and dry Psychiatric: Appropriate mood and thoughts Vital Signs: Vital Signs: Last Vital Signs Temp 97.9 F 12/29/24 22:25 Pulse 78 12/29/24 22:25 Resp 18 12/29/24 22:25 BP 139/63 12/29/24 22:25 Pulse Ox 100 12/29/24 22:25 O2 Del Method Room Air 12/29/24 22:25 BMI result Body Mass Index 41.0 Medical Decision Making Medical Decision Making [facility] Narrative: This is a 24-year-old male presented hospital today for left-sided chest pain. EKG did not show any signs of STEMI, troponin is negative. Chest x-ray is unremarkable on exam. Lab work did not show any signs of significant abnormality. Patient has left-sided chest pain that is reproducible on exam. I suspect this is musculoskeletal in nature. We will plan to give patient a lidocaine patch ibuprofen and Tylenol. We will plan to discharge patient with lidocaine patch ibuprofen Tylenol. Patient has low heart score of 1 Patient will be discharged at this time Differential Diagnosis Differential Diagnoses: The differential diagnosis associated with the presentation includes ACS, CAD, coronary artery spasm, COPD, asthma Lab Data [facility] Lab Attestation statement: I reviewed the patient's lab results. 12/29/24 22:54 12/29/24 22:54 Labs: Lab Results 12/29/24 Range/Units 22:54 WBC 13.7 H (4.8-10.8) X10*3/uL RBC 5.19 (4.60-5.80) X10*6/uL Hgb 16.3 (14.0-18.0) g/dl Hct 44.6 (42.0-52.0) % MCV 85.9 (80.0-98.0) fL MCH 31.4 (27.0-33.0) pg MCHC 36.5 H (31.0-36.0) g/dl RDW 12.9 (11.0-16.0) % Plt Count 245 (160-400) X10*3/uL MPV 9.7 (9.4-12.4) fL Immature Gran % (Auto) 0.4 (0.0-0.4) % Neut % (Auto) 80.1 H (45-73) % Lymph % (Auto) 12.6 L (20-40) % Woodruff % (Auto) 6.2 (2-11) % Eos % (Auto) 0.4 (0-4) % Baso % (Auto) 0.3 (0-2) % Lymph # (Auto) 1.7 (1.2-4.9) X10*3/uL Woodruff # (Auto) 0.9 (0.1-1.2) X10*3/uL Eos # (Auto) 0.1 (0.0-0.4) X10*3/uL Baso # (Auto) 0.0 (0.0-0.2) X10*3/uL Abs Immat Gran (auto) 0.05 H (0.00-0.03) X10*3/uL Absolute Neuts (auto) 11.0 H (2.0-8.3) x10*3/uL Absolute Nucleated RBC 0.000 (0.0-0.012) X10*3/uL Nucleated RBC % (auto) 0.0 (0.0-0.2) /100WBC Sodium 141 (135-145) mmol/L Potassium 3.7 (3.3-5.1) mmol/L Chloride 104 (96-108) mmol/L Carbon Dioxide 28 (22-29) mmol/L Anion Gap 13 (12-20) BUN 14 (9-16) mg/dL Creatinine 1.22 (0.5-1.4) mg/dL Estim Creat Clear Calc 118.8 Estimated GFR > 60 Random Glucose 87 (60-115) mg/dL Calcium 9.4 D (8.4-10.2) mg/dL Magnesium 2.1 (1.6-2.6) mg/dL Total Bilirubin 0.5 (0.0-1.0) mg/dL AST 29 (5-37) U/L ALT 36 (0-40) U/L Alkaline Phosphatase 85 (39-117) U/L Troponin I High Sens < 2.7 (<3.5-35.0) ng/L Total Protein 8.1 H (6.5-8.0) g/dL Albumin 4.7 (3.5-5.0) g/dL Independent Interpretation I performed an independent interpretation of an: EKG and Plain X-Ray Radiology Impression Discussion of test interpretation with radiology: I have reviewed the radiologist's reading. Discharge Plan Discharge Clinical Impression: Chest wall pain Patient Disposition: Home, Self-Care Instructions: Chest Wall Pain (ED) Prescriptions: New acetaminophen [Tylenol] 325 mg tablet 650 mg PO Q8H Qty: 21 0RF lidocaine [AsperFlex (lidocaine)] 4 % adhesive patch,medicated 1 patch topical DAILY PRN (Reason: pain) Qty: 10 0RF ibuprofen 200 mg capsule 400 mg PO Q8H 5 Days Qty: 30 0RF No Action hydroxyzine HCl 50 mg tablet 50 mg PO BID PRN (Reason: for anxiety) Qty: 60 1RF buspirone 10 mg tablet 10 mg PO BID buprenorphine-naloxone 8-2 mg tablet, sublingual 1 tab sublingual DAILY 30 Days Qty: 30 1RF Print Language: Taiwanese
--- OUTSIDE RECORDS SUMMARY | 2024-12-30 00:36 | XMS_ITS | Encounter Summary ---
Author Organization [employer] Address [address] [facility] [address] [place] [address] Care Team Providers Care Mercury Purifier Name Role Phone Name, Arnaldo TA Primary Care Provider [phone] Encounter Details Date Type Department Care Team ([facility] st Contact Info) Description 12/29/2024 Orders Only GENERIC EXTERNAL DATA DEPARTMENT Provider, Generic External Data Social History Tobacco Use Types Packs/Day Years [...] with others, in a hotel, in a fci, living outside on the street, on a [...] as of this encounter Plan of Treatment Not on file documented as of this encounter Procedures Procedure Name Priority Date/Time Associated Diagnosis Comments HIGH SENSITIVITY TROPONIN I Routine 12/29/2024 10:54 PM EDT CBC WITH AUTO DIFFERENTIAL Routine 12/29/2024 10:54 PM EDT MAGNESIUM Routine 12/29/2024 10:54 PM EDT COMPREHENSIVE METABOLIC PANEL Routine 12/29/2024 10:54 PM EDT documented in this encounter Results * High Sensitivity Troponin I (12/29/2024 10:54 PM EDT) TROPONIN I HIGH SENSITIVITY <2.7 <3.5 - 35.0 ng/L [facility] Comment:The [place] high sens itivity Troponin-I results should beused in conjunction with other diagnostic information suchas ECG, clinical observations and information, and patientsymptoms to aid in the diagnosis of [place]. 12/29/2024 10:5 4 PM EDT 12/29/2024 10:58 PM EDT us Generic External Data Provider LAB BLOOD ORDERAB LES Final Result [facility] [address] [place] [phone] * Magnesium (12/29/2024 10:54 PM EDT) Magnesium 2.1 1.6 - 2.6 mg/dL [facility] 12/29/2024 10:5 4 PM EDT 12/29/2024 10:58 PM EDT us Generic External Data Provider LAB BLOOD ORDERAB LES Final Result [facility] [address] [place] [address] [phone] * (ABNORMAL) Comprehensive Metabolic Panel (12/29/2024 10:54 PM EDT) Pathologist [facility] Sodium 141 135 - 145 mmol/L [facility] Potassium 3.7 3.3 - 5.1 mmol/L [facility] Chloride 104 96 - 108 mmol/L [facility] Carbon Dioxide 28 22 - 29 mmol/L [facility] Anion Gap 13 12 - 20 [facility] Urea Nitrogen (BUN) 14 9 - 16 mg/dL [facility] Creatinine, Serum 1.22 0.5 - 1.4 mg/dL [facility] Creatinine Clr Calc Pharmacy 118.8 [facility] Comment:eGFR (calculated fro m the MDRD study equation) and eCrCl(calculated from the Cockcroft-Gault equation) are based ondifferent parameters and may not yield comparable results.If eCrCl result is absurd, please check patient'sheight/weight. Estimated Glomerular Filt Rate >60 [facility] Comment:Chronic Kidney Disea se: Estimated GFR < 60 mL/min/[id number] Kidney Disease: Estimated GFR < 15 mL/min/1.73m2 Glucose 87 60 - 115 mg/dL [facility] Calcium 9.4 8.4 - 10.2 mg/dL [facility] Bilirubin, Total 0.5 0.0 - 1.0 mg/dL [facility] Aspartate Amino Transferase 29 5 - 37 U/L [facility] Alanine Aminotransferase 36 0 - 40 U/L [facility] Total Protein 8.1(H) 6.5 - 8.0 g/dL [facility] Albumin Level 4.7 3.5 - 5.0 g/dL [facility] Alkaline Phosphatase 85 39 - 117 U/L [facility] 12/29/2024 10:5 4 PM EDT 12/29/2024 10:58 PM EDT us Generic External Data Provider LAB BLOOD ORDERAB LES Final Result [facility] [address] [place] [phone] * (ABNORMAL) CBC auto differential (12/29/2024 10:54 PM EDT) White Blood Count 13.7(H) 4.8 - 10.8 X10*3/uL [facility] Red Blood Count 5.19 4.60 - 5.80 X10*6/uL [facility] Hemoglobin 16.3 14.0 - 18.0 g/dl [facility] Hematocrit 44.6 42.0 - 52.0 % [facility] Mean Corpuscular Volume 85.9 80.0 - 98.0 fL [facility] Mean Corpuscular Hemoglobin 31.4 27.0 - 33.0 pg [facility] Mean Corpuscular HGB Conc 36.5(H) 31.0 - 36.0 g/dl [facility] Red Cell Distribution Width 12.9 11.0 - 16.0 % [facility] Platelet Count 245 160 - 400 X10*3/uL [facility] Mean Platelet Volume 9.7 9.4 - 12.4 fL [facility] Neutrophils Percent Auto 80.1(H) 45 - 73 % [facility] Imm Gran Pct Auto 0.4 0.0 - 0.4 % [facility] Lymphocytes Percent Auto 12.6(L) 20 - 40 % [facility] Monocytes Percent Auto 6.2 2 - 11 % [facility] Eosinophils Percent Auto 0.4 0 - 4 % [facility] Basophils Percent Auto 0.3 0 - 2 % [facility] NRBC Pct Auto 0.0 0.0 - 0.2 /100WBC [facility] Neutrophils Absolute Auto 11.0(H) 2.0 - 8.3 x10*3/uL [facility] Imm Gran Abs Auto 0.05(H) 0.00 - 0.03 X10*3/uL [facility] Lymphocytes Absolute Auto 1.7 1.2 - 4.9 X10*3/uL [facility] Monocytes Absolute Auto 0.9 0.1 - 1.2 X10*3/uL [facility] Eosinophils Absolute Auto 0.1 0.0 - 0.4 X10*3/uL [facility] Basophils Absolute Auto 0.0 0.0 - 0.2 X10*3/uL [facility] NRBC Abs Auto 0.000 0.0 - 0.012 X10*3/uL [facility] 12/29/2024 10:5 4 PM EDT 12/29/2024 10:58 PM EDT us Generic External Data Provider LAB BLOOD ORDERAB LES Final Result Performing Organization Address City/State/[facility] Co de Phone Number [facility] [address] [place] [phone] documented in this encounter Visit Diagnoses Not on filedocumented in this encounter Additional Health Concerns Assessment Noted Time PHQ-9 Depression Total Score: 4 07/13/19 25 11:25 AM EDT documented as of this encounter Care Teams Mercury Purifier Relationship Specialty Start Date End Date Name, MD Arnaldo [address] [place] [address] PCP - General Internal Medicine 07/12/24 documented as of this encounter
--- OUTSIDE RECORDS SUMMARY | 2024-12-30 00:36 | XMS_ITS | Clinical Summary ---
Author Organization [employer] Address [address] [place] [address] [address] [place] [address] Care Team Providers Care [employer] Teacher Name Role Phone Name, Arnaldo TA Primary Care Provider [phone] Allergies No known active allergies Medications * [...] 90 tablet 11 5 07/13/19 26 Active doxycycline (Vibra-Tabs) 100 MG tabletIndicatio ns:On pre-exposure prophylaxis for HIV Take 2 tabs once within 72 hours of unprotected intercourse. Take with a full glass of water and do not lie down for at least 30 minutes after. 60 tablet 5 Active emtricitabine-t enofovir AF (Descovy) 200-25 MG tabletIndicatio ns:Pre-Exposure Prophylaxis of HIV Take 1 tablet by mouth Once per day. 30 tablet 2 5 Active Active Problems Problem Noted Date Diagnosed Date Tobacco dependence syndrome 07/12/2024 Panic attacks 07/12/2024 Polysubstance (excluding opioids) dependence Overview (07/12/2024): . Moderate episode of recurrent major depressive d isorder 02/23/2024 Anxiety 02/23/2024 PTSD (post-traumatic stress disorder) 02/23/2024 History of cocaine use 02/23/2024 Eczema 05/18/2017 Encounters Date Type Department Care Team Description 12/29/2024 Orders Only GENERIC EXTERNAL DATA DEPARTMENT Provider, Generic External Data 11/30/2024 Orders Only [facility] [address] [place] [address] Monisha Banda ANP On pre-exposure prophylaxis for HIV (Primary Dx) 11/30/2024 Orders Only [facility] [address] [place] [phone] Bijal Yost RN 10/23/2024 Telephone [facility] [address] [place] [address] [phone] Ellie Grey MA Chart Prep from Last 3 Months Immunizations Immunization Administration Dates Next Due DTaP 07/28/2005, 2,02/24/2001,11/08,2000 HPV, Quadrivalent 11/07/2012,02/26/2011,01/26/20 11 Hep A, ped/adol, 3 dose 01/01/2009,11/07/2006, Hep B, Adolescent or Pediatric 02/24/2001,2000,2000 Hib (HbOC) 01/30/2004, 1,2000,08/23 IPV 07/28/2005, 2,2000,08/23 Influenza injectable quadriv alent preservative free 05/08/2018,07/05/2016 Influenza live intranasal qu adrivalent LIAV4 02/07/2014 Influenza live intranasal trivalent 02/07/2013 Influenza, IIV3, injectable 01/25/2011, 9 Influenza, Split [...] 87 07/12/2024 10:51 AM EDT Temperature 37.1 C (98.8 F) 07/12/2024 10:51 AM EDT Respiratory Rate 20 07/12/2024 10:51 AM EDT Oxygen Saturation 96% 07/12/2024 10:51 AM EDT Inhaled Oxygen Concentration - - Weight 127 kg (280 lb 6.4 oz) 07/12/2024 10:51 A M EDT Height 172.7 cm (5' 8 ) 07/12/2024 10:51 AM EDT Body Mass Index 42.63 07/12/2024 10:51 AM EDT Plan of Treatment Health Maintenance Due Date Last Done Comments Lipid Panel 2000 Disability Screening 2000 Alcohol/Substance Use Screening 2012 Family Planning (PISQ) 07/02/2015 Pneumococcal Vaccine: Pediatrics (0 to 5 Years) and At-Risk Patients (6 to 49) Years (1 of 2 - PCV) 07/02/2019 01/30/2004, 02/24/2001, 2000, Additional history exists COVID-19 Vaccine ( - season) 2024 Influenza Vaccine (#1) 2024 , 05/08/2018, 07/05/2016, Additional history exists Depression Screening 07/12/2025 07/12/2024, 07/13/19 25 SDOH Screening 07/12/2025 07/12/2024 Tobacco Screening 07/12/2025 07/12/2024 DTaP/Tdap/Td Vaccines (8 - Td or Tdap) 10/01/2033 10/02/2023, 11/07/2012, 07/28/2005, Additional history exists Zoster Vaccines (1 of 2) 2050 RSV Patients and Patients Aged 60 years or older (1 - 1-dose 75+ series) 07/02/2075 Hepatitis B Vaccines Completed 02/24/2001, 2000, 2000 HIB Vaccines Completed 01/30/2004, 01/31, 2000, Additional history exists IPV Vaccines Completed 07/28/2005, 06/0 09/2001, 2000, Additional history exists HPV Vaccines Completed 11/07/2012, 01/31, 01/25/2011 Meningococcal Vaccine Completed 01/10/2017, 012 HIV Screening Completed 11/27/2024, 06/30, 01/07/2024 Hepatitis C Screening Completed 11/27/2024, 025 Hepatitis A Vaccines Aged Out No long er eligible based on patient's age to complete this topic Meningococcal B Vaccine Aged Out No l onger eligible based on patient's age to complete this topic RSV under 20 months Aged Out No longe r eligible based on patient's age to complete this topic Rotavirus Vaccines Aged Out No longer eligible based on patient's age to complete this topic Procedures Procedure Name Priority Date/Time Associated Diagnosis Comments HIGH SENSITIVITY TROPONIN I Routine 12/29/2024 10:54 PM EDT MAGNESIUM Routine 12/29/2024 10:54 PM EDT COMPREHENSIVE METABOLIC PANEL Routine 12/29/2024 10:54 PM EDT CBC WITH AUTO DIFFERENTIAL Routine 12/29/2024 10:54 PM EDT HEPATITIS C ANTIBODY ([place] D[facility]) Routine 11/27/2024 HIV ANTIBODY/ANTIGEN ([place] [facility]) Routine 11/27/2024 SYPHILIS ABS ([place] DPH) Routine 11/27/2024 CHLAMYDIA/GONORRHEA - URINE ([place] [facility]) Routine 11/27/2024 CHLAMYDIA/GONORRHEA THROAT SWAB ([place] D[facility]) Routine 11/27/2024 from Last 3 Months Results * High Sensitivity Troponin I (12/29/2024 10:54 PM EDT) TROPONIN I HIGH SENSITIVITY <2.7 <3.5 - 35.0 ng/L [facility] Comment:The [place] high sens itivity Troponin-I results should beused in conjunction with other diagnostic information suchas ECG, clinical observations and information, and patientsymptoms to aid in the diagnosis of IA. 12/29/2024 10:5 4 PM EDT 12/29/2024 10:58 PM EDT us Generic External Data Provider LAB BLOOD ORDERAB LES Final Result [facility] [address] [place] [phone] [phone] * (ABNORMAL) CBC auto differential (12/29/2024 10:54 PM EDT) White Blood Count 13.7(H) 4.8 - 10.8 X10*3/uL [facility] Red Blood Count 5.19 4.60 - 5.80 X10*6/uL [facility] Hemoglobin 16.3 14.0 - 18.0 g/dl [facility] Hematocrit 44.6 42.0 - 52.0 % [facility] Mean Corpuscular Volume 85.9 80.0 - 98.0 fL [facility] Mean Corpuscular Hemoglobin 31.4 27.0 - 33.0 pg [facility] Mean Corpuscular HGB Conc 36.5(H) 31.0 - 36.0 g/dl [facility] Red Cell Distribution Width 12.9 11.0 - 16.0 % [facility] Platelet Count 245 160 - 400 X10*3/uL [facility] Mean Platelet Volume 9.7 9.4 - 12.4 fL [facility] Neutrophils Percent Auto 80.1(H) 45 - 73 % [facility] Imm Gran Pct Auto 0.4 0.0 - 0.4 % [facility] Lymphocytes Percent Auto 12.6(L) 20 - 40 % [facility] Monocytes Percent Auto 6.2 2 - 11 % [facility] Eosinophils Percent Auto 0.4 0 - 4 % [facility] Basophils Percent Auto 0.3 0 - 2 % [facility] NRBC Pct Auto 0.0 0.0 - 0.2 /100WBC [facility] Neutrophils Absolute Auto 11.0(H) 2.0 - 8.3 x10*3/uL [facility] Imm Gran Abs Auto 0.05(H) 0.00 - 0.03 X10*3/uL [facility] Lymphocytes Absolute Auto 1.7 1.2 - 4.9 X10*3/uL [facility] Monocytes Absolute Auto 0.9 0.1 - 1.2 X10*3/uL [facility] Eosinophils Absolute Auto 0.1 0.0 - 0.4 X10*3/uL [facility] Basophils Absolute Auto 0.0 0.0 - 0.2 X10*3/uL [facility] NRBC Abs Auto 0.000 0.0 - 0.012 X10*3/uL [facility] 12/29/2024 10:5 4 PM EDT 12/29/2024 10:58 PM EDT us Generic External Data Provider LAB BLOOD ORDERAB LES Final Result Performing Organization Address City/[facility]/ZIP Co de Phone Number [facility] [address] [place] [phone] * Magnesium (12/29/2024 10:54 PM EDT) Magnesium 2.1 1.6 - 2.6 mg/dL [facility] 12/29/2024 10:5 4 PM EDT 12/29/2024 10:58 PM EDT us Generic External Data Provider LAB BLOOD ORDERAB LES Final Result Performing Organization Address [facility]/ZIP Co de Phone Number [facility] [address] [place] [phone] * (ABNORMAL) Comprehensive Metabolic Panel (12/29/2024 10:54 PM EDT) Sodium 141 135 - 145 mmol/L [facility] Potassium 3.7 3.3 - 5.1 mmol/L [facility] Chloride 104 96 - 108 mmol/L [facility] Carbon Dioxide 28 22 - 29 mmol/L [facility] Anion Gap 13 12 - 20 [facility] Urea Nitrogen (BUN) 14 9 - 16 mg/dL [facility] Creatinine, Serum 1.22 0.5 - 1.4 mg/dL [facility] Creatinine Clr Calc Pharmacy 118.8 [facility] Comment:eGFR (calculated fro m the MDRD study equation) and eCrCl(calculated from the Cockcroft-Gault equation) are based ondifferent parameters and may not yield comparable results.If eCrCl result is absurd, please check patient'sheight/weight. Estimated Glomerular Filt Rate >60 [facility] Comment:Chronic Kidney Disea se: Estimated GFR < 60 mL/min/[id number] Kidney Disease: Estimated GFR < 15 mL/min/1.73m2 Glucose 87 60 - 115 mg/dL [facility] Calcium 9.4 8.4 - 10.2 mg/dL [facility] Bilirubin, Total 0.5 0.0 - 1.0 mg/dL [facility] Aspartate Amino Transferase 29 5 - 37 U/L [facility] Alanine Aminotransferase 36 0 - 40 U/L [facility] Total Protein 8.1(H) 6.5 - 8.0 g/dL [facility] Albumin Level 4.7 3.5 - 5.0 g/dL [facility] Alkaline Phosphatase 85 39 - 117 U/L [facility] 12/29/2024 10:5 4 PM EDT 12/29/2024 10:58 PM EDT us Generic External Data Provider LAB BLOOD ORDERAB LES Final Result [facility] [address] [place] [phone] [phone] * Chlamydia/Gonorrhea Throat Swab ([place] [facility]) (11/27/2024) Chlamydia Throat Swab Negative Gonorrhea Throat Swab Negative Swab 11/27/2024 Result [facility] MD LAB MICROBIOLOGY - GENERA L ORDERABLES Final Result * Chlamydia/Gonorrhea, Urine ([place] [facility]) (11/27/2024) Chlamydia, Urine Negative Negative, Indeterminate, None Detected, Invalid, Specimen unsatisfactory for evaluation, Weakly Positive, 2+ Gonorrhea, Urine Negative Negative, Indeterminate, None Detected, Invalid, Specimen unsatisfactory for evaluation, Weakly Positive, 2+ Urine 11/27/2024 Result [facility] MD LAB URINE ORDERABLES Karen l Result * Syphilis Antibodies (DPH) (11/27/2024) Syphilis Abs Nonreactive Borderline, Nonreactive, Weakly Reactive, Inconclusive, Specimen unsatisfactory for evaluation Blood Venous blood specimen / Unknown 11/27/2024 Result [facility] MD LAB BLOOD ORDERABLES Karen l Result * Hepatitis C Antibody ([place] [facility]) (11/27/2024) Hepatitis C Ab Nonreactive Blood 11/27/2024 Result [facility] MD LAB BLOOD ORDERABLES Karen l Result * HIV Ab/Ag ([place] [facility]) (11/27/2024) HIV Ag/Ab Nonreactive Blood 11/27/2024 Result [facility] MD LAB BLOOD ORDERABLES Karen l Result from Last 3 Months Insurance [facility] C3 [employer] Care Teams [employer] Relationship Specialty Start Date End Date Name, MD Arnaldo [address] [place] [phone] PCP - General Internal Medicine 07/12/24
[2024-12-30] MEDS: Lidocaine 4 % Patch ADH..PATCH 1 PATCH TRANSDERMA (00:58)
[2024-12-30 01:07] VITALS: BP 168/88; PULSE 65; RESP 18; TEMP 36.6; O2SAT 98
== END 2024-12-30 01:08 | disposition home or self-care (01) ==
PROVIDERS: Emergency Provider Student in an Organized Health Care Education/Training Program
DX: R07.89 Other chest pain (principal)
CPT/HCPCS: 36415; 71045; 80053; 83735; 84484; 85025; 93005; 99283; 99284

== ENCOUNTER → 2024-12-29 22:20 | Outpatient (BNV) | payer MEDICAID, SELFPAY | PROVIDERS: Emergency Provider Student in an Organized Health Care Education/Training Program; Visit Provider Internal Medicine | DX: R07.89 Other chest pain (principal) | CPT/HCPCS: 93010 ==

== ENCOUNTER → 2024-12-29 23:39 | Outpatient (BNV) | payer MEDICAID, SELFPAY | PROVIDERS: Emergency Provider Student in an Organized Health Care Education/Training Program; Visit Provider Radiology Diagnostic Radiology | DX: R07.89 Other chest pain (principal) | CPT/HCPCS: 71045 ==

== ENCOUNTER 2025-01-02 16:59 | Emergency (ER) | payer MEDICAID, SELFPAY ==
--- NOTE | 2025-01-02 17:01 | ECG_ITS ---
Test Reason : chest pain Blood Pressure : */* mmHG Vent. Rate : 75 BPM Atrial Rate : 75 BPM P-R Int : 152 ms QRS Dur : 84 ms QT Int : 350 ms P-R-T Axes : 70 64 31 degrees QTcB Int : 390 ms Normal sinus rhythm with sinus arrhythmia Normal ECG When compared with ECG of 29-Dec-2024 22:22, No significant change was found Referred By: Val Robins Electronically Signed By: Luis Muniz
--- NOTE | 2025-01-02 17:19 | ED_ITS ---
HPI - General Adult General Chief complaint: Chest Pain Stated complaint: chest pain, difficulty breathing Related Data Home Medications ?Medication ?Instructions ?Recorded ?Confirmed buspirone 10 mg tablet 10 mg PO BID 08/03/24 Previous Rx's ?Medication ?Instructions ?Recorded hydroxyzine HCl 50 mg tablet 50 mg PO BID PRN for anxi ety #60 08/15/24 tabs buprenorphine 8 mg-naloxone 2 mg 1 tab sublingual JESSICA Y 30 days #30 12/05/24 sublingual tablet tabs acetaminophen 325 mg tablet 650 mg (2 x 325 mg) PO Q8H #21 tabs 12/30/24 (Tylenol) ibuprofen 200 mg capsule 400 mg (2 x 200 mg) PO Q8H 5 days 12/30/24 #30 caps lidocaine 4 % topical patch 1 patch topical DAILY PRN pain #10 12/30/24 (AsperFlex (lidocaine)) ea Allergies Allergy/AdvReac Type Severity Reaction Status Date / Time No Known Allergies (No Known Allergy Verified 01/02/25 17:22 Allergies*) [facility] Social History Social History Substance Use Type: Marijuana Advance Directives: No Advance Directives Information Provided: No Physical Exam ED Vital Signs: BMI result Body Mass Index 41.6 Course Course Course Narrative: This is a Rapid Medical Examination (RME) performed by Av Robins PA-C in triage. Full HPI, ROS, assessment and treatment plan per primary provider in the Main ED. Hx: 24 yo M here for eval of left sided chest pain and epigastric abd pain x few days. no NV, cough, fever. admits to consuming a lot of etoh the other day liliane or to onset of sx. Plan: labs, ekg Reevaluation(s) Reevaluation #1: Patient left the emergency department before myself or any of the other clinicians could review or explain physical exam findings, test results, need or lack there of for additional testing, treatment options, or a treatment plan. Discharge Plan Discharge Clinical Impression: Chest pain Patient Disposition: Left W/O Completing Treatment Prescriptions: No Action hydroxyzine HCl 50 mg tablet 50 mg PO BID PRN (Reason: for anxiety) Qty: 60 1RF acetaminophen [Tylenol] 325 mg tablet 650 mg PO Q8H Qty: 21 0RF lidocaine [AsperFlex (lidocaine)] 4 % adhesive patch,medicated 1 patch topical DAILY PRN (Reason: pain) Qty: 10 0RF ibuprofen 200 mg capsule 400 mg PO Q8H 5 Days Qty: 30 0RF buspirone 10 mg tablet 10 mg PO BID buprenorphine-naloxone 8-2 mg tablet, sublingual 1 tab sublingual DAILY 30 Days Qty: 30 1RF Discharge Date/Time: 01/02/25 21:18
[2025-01-02 17:20] VITALS: BP 138/63; PULSE 65; RESP 18; TEMP 36.7; O2SAT 99; BMI 41.6
--- NOTE | 2025-01-02 19:39 | MHC.EDTECH ---
[email or web address] @[id number]
--- NOTE | 2025-01-02 19:40 | MHC.EDTECH ---
[email or web address]
--- OUTSIDE RECORDS SUMMARY | 2025-01-02 21:16 | XMS_ITS | Clinical Summary ---
Author Organization [facility] Address [address] [place] [address] Care Team Providers Care Animal Shelter Clerk Name Role Phone Pcp, No Primary Care [...] 0.79 S/CO ratio 01/09/2024 11:18 AM EDT [facility] Hepatitis C Antibody Interpretation Nonreactive Nonreactive 01/09/2024 11:18 AM EDT [facility] Comment:Antibodies to HCV no t detected. This does not exclude the possibility of exposure to HCV. Blood (Plasma/Serum) 01/07/2024 12:18 PM EDT 01/07/2024 12:35 PM EDT Kim HERNANDES LAB BLOOD ORDERABLES Final Result Performing Organization Address [facility] Co de Phone Number [facility] [address] * HIV 1/2 Ag/Ab CMIA Reflex to Confirmation (01/07/2024 12:18 PM EDT) HIV 1/2 Ag/Ab CMIA Nonreactive Nonreactive 01/09/2024 11:18 AM EDT [facility] Comment: Results show no [...] BLOOD ORDERABLES Final Result Performing Organization Address [facility] Co de Phone Number [facility] [address] from Last 3 Months or Most Recently Relevant to Health Maintenance Insurance [facility] Care Teams Animal Shelter Clerk Relationship Specialty Start Date End Date Pcp, No PCP - General 06/23/23
== END 2025-01-02 21:18 | disposition left against medical advice (07) ==
PROVIDERS: Emergency Provider Emergency Medicine
DX: R07.89 Other chest pain (principal); Z53.21 Procedure and treatment not carried out due to patient leaving prior to being seen by health care provider
CPT/HCPCS: 93005; 99283

== ENCOUNTER → 2025-01-02 17:01 | Outpatient (BNV) | payer MEDICAID, SELFPAY | PROVIDERS: Emergency Provider Emergency Medicine; Visit Provider Internal Medicine Cardiovascular Disease | DX: R07.89 Other chest pain (principal) | CPT/HCPCS: 93010 ==

== ENCOUNTER 2025-01-28 15:34 | Emergency (ER) | payer MEDICAID, SELFPAY ==
--- OUTSIDE RECORDS SUMMARY | 2025-01-23 15:45 | XMS_ITS | Encounter Summary ---
Author Organization [employer] Address [address] [place] [address] [address] [place] [address] Care Team Providers Care Sign Out Clerk Name Role Phone Name, Arnaldo TA Primary Care Provider [phone] Reason for Visit * Reason Comments Follow-up Encounter Details Date Type Department Care Team ([facility] st Contact Info) Description 01/23/2025 3:45 PM EDT [facility] [address] [place] [address] [phone] Name, MD Arnaldo [address] [place] [address] Anxiety (Primary Dx); Panic attacks Social History Tobacco Use Types Packs/Day Years Used Date Smoking Tobacco: Every Day Cigarettes Smokeless Tobacco: Never Tobacco Cessation:Ready to Q uit: Not Asked; Counseling Given: Not Answered Alcohol Use Standard Drinks/Week Comments Yes 5 (1 standard drink = 0.6 oz pur e alcohol) weekends Depression Answer Date Recorded Patient Health Questionnaire-9 Score 16 01/23/2025 Patient Health Questionnaire-9 Score 16 01/23/2025 Last PHQ-9: Questionnaire Data Not on file 0 01/23/2025 Housing Stability Answer Date Recorded What is [...] Answer Date Recorded Patient Health Questionnaire-2 Score 6 01/23/2025 Internet Access Answer Date Recorded Internet Access [...] Sign Reading Time Taken Comments Blood Pressure 142/68 01/23/2025 4:06 PM EDT Pulse 68 01/23/2025 4:06 PM EDT Temperature 36.6 C (97.9 F) 01/23/2025 4:06 PM EDT Respiratory Rate 18 01/23/2025 4:06 PM EDT Oxygen Saturation 99% 01/23/2025 4:06 PM EDT Inhaled Oxygen Concentration - - Weight 125 kg (275 lb) 01/23/2025 4:06 PM EDT Height 172.7 cm (5' 8 ) 01/23/2025 4:06 PM EDT Body Mass Index 41.81 01/23/2025 4:06 PM EDT documented in this encounter Functional Status * Over the past 2 weeks, how often have you been bothered by any of the following problems? Question Answer Date of Assessment Author Patient Health Questionnaire -2 Score 6 01/23/2025 4:26 PM EDT Min Anne MA * Little interest or pleasure in doing things Answer Date of Assessment Author Nearly every day 01/23/2025 4:26 PM EDT Cornel Anne MA * Feeling down, depressed, or hopeless Answer Date of Assessment Author Nearly every day 01/23/2025 4:26 PM JOSE DE JESUST Cornel Anne MA * Trouble falling or staying asleep, or sleeping too much Answer Date of Assessment Author Nearly every day 01/23/2025 4:26 PM JOSE DE JESUST Cornel Anne MA * Feeling tired or having little energy Answer Date of Assessment Author Nearly every day 01/23/2025 4:26 PM JOSE DE JESUST Cornel Anne MA * Poor appetite or overeating Answer Date of Assessment Author Several days 01/23/2025 4:26 PM JOSE DE JESUST Cornel Anne MA * Feeling bad about yourself - or that you are a failure or have let yourself or your family down Answer Date of Assessment Author Not at all 01/23/2025 4:26 PM Cornel Angel MA * Trouble concentrating on things, such as reading the newspaper or watching television Answer Date of Assessment Author Not at all 01/23/2025 4:26 PM Cornel Angel MA * Moving or speaking so slowly that other people could have noticed? Or the opposite - being so fidgety or restless that you have been moving around a lot more than usual. Answer Date of Assessment Author Nearly every day 01/23/2025 4:26 PM Cornel Angel MA * Thoughts that you would be better off or hurting yourself in some way Answer Date of Assessment Author Not at all 01/23/2025 4:26 PM Cornel Angel MA * Patient Health Questionnaire-9 Score Answer Date of Assessment Author 16 01/23/2025 4:26 PM Cornel Angel MA * How difficult have these problems made it for you to do your work, take care of things at home, or get along with other people? Answer Date of Assessment Author Somewhat difficult 01/23/2025 4:26 PM Cornel Moses MA * Over the last 2 weeks, how often have you been bothered by any of the following problems? Question Answer Date of Assessment Author Feeling nervous, anxious, or on edge 3 01/23/2025 4:26 PM EDT Min Anne MA Not being able to stop or control worrying 3 01/23/2025 4:26 PM EDT Min Anne MA Worrying too much about different things 3 01/23/2025 4:26 PM EDT Min Anne MA Trouble relaxing 3 01/23/2025 4:26 PM EDT Cornel Caceres MA Being so restless that it is hard to sit still 3 01/23/2025 4:26 PM EDT Min Anne MA Becoming easily annoyed or irritable 3 01/23/2025 4:26 PM EDT Min Anne MA Feeling afraid as if somethi ng awful might happen 3 01/23/2025 4:26 PM EDT Min Anne MA SOHA-7 Total Score 21 01/23/2025 4:26 PM EDT Cornel Anne MA documented as of this encounter Progress Notes * Arnaldo Ghosh MD - 01/23/2025 3:45 PM EDT Subjective Patient ID: Yassine Rodriguez is a 24 y.o. male who presents for Follow-up. Patient comes for follow-up visit. He is accompanied by his mother. He is extremely anxious. The patient describes frequent severe anxiety, sensation of impending doom, difficulty sleeping, episodes of hyperventilation and chest pressure, difficulties concentrating. All of the symptoms of the patient are recurrent and chronic. He was prescribed in the past SSRI, trazodone, BuSpar but is not usingany of the medications at the moment. He is not suicidal. He has an appointment with behavioral health next week. He denies recent use of cocaine. Review of Systems Constitutional: Negative for chills, fatigue and fever. HENT: Negative for sore throat. Respiratory: Negative for cough, chest tightness and shortness of breath. Cardiovascular: Negative for chest pain, palpitations and leg swelling. Gastrointestinal: Negative for abdominal pain and blood in stool. Psychiatric/Behavioral: The patient is nervous/anxious. Objective Vitals: 01/23/25 1606 BP: (!) 142/68 BP Location: Left arm Patient Position: Sitting BP Cuff Size: Large adult Pulse: 68 Resp: 18 Temp: 97.9 ??F (36.6 ??C) TempSrc: Temporal SpO2: 99% Weight: 275 lb (125 kg) Height: 5' 8 (1.727 m) Physical Exam Constitutional: Appearance: Normal appearance. Cardiovascular: [...] all orders for this visit: Anxiety Comments: Patient has severe anxiety, panic attacks, likely PTSD after recent incarceration. He is not using cocaine. He is not suicidal. He already has an appointment with behavioral health next week. I discussed importance of using his medications daily. I recommended sertraline, BuSpar, prazosin at bedtime, hydroxyzine as needed for panic attacks. Keep appointment with behavioral health next week. EKG today is unremarkable. I explained to the patient that his symptoms are secondary to anxiety. Orders: - busPIRone (Buspar) 10 MG tablet; Take 1 tablet (10 mg) by mouth 3 times daily. - ECG 12 lead Panic attacks - busPIRone (Buspar) 10 MG tablet; Take 1 tablet (10 mg) by mouth 3 times daily. - ECG 12 lead Other orders - sertraline (Zoloft) 25 MG tablet; Take 1 tablet (25 mg) by mouth Once per day for 7 days, THEN 2 tablets (50 mg) Once per day. - prazosin (Minipress) 1 MG capsule; Take 1 capsule (1 mg) by mouth at bedtime for 7 days, THEN 2 capsules (2 mg) at bedtime. - hydrOXYzine HCl (Atarax) 50 MG tablet; Take 1 tablet (50 mg) by mouth every 8 (eight) hours if needed for anxiety. Future Appointments Date Time Provider Department Center 01/29/2025 1:30 PM Arjun Lunsford [facility] documented in this encounter Plan of Treatment Upcoming Encounters Date Type Department Care Team (Late st Contact Info) Description 04/09/2025 11:00 AM EST Office Visit [facility] [address] [place] [address] Name, MD Arnaldo [address] [place] [address] documented as of this encounter Procedures Procedure Name Priority Date/Time Associated Diagnosis Comments ECG 12-LEAD Routine 01/24/2025 6:51 AM EDT Anxiety Panic attacks documented in this encounter Results * ECG 12 lead (01/24/2025 6:51 AM EDT) Narrative Name, MD Arnaldo - 01/24/2025 6:51 AM EDT Normal EKG, NSR, HR of 80, no ST-T changes Arnaldo Ghosh MD ECG ORDERABLES Final Result documented in this encounter Visit Diagnoses Diagnosis Anxiety- Primary Anxiety state, unspecified Panic attacks Panic disorder without agoraphobia documented in this encounter Additional Health Concerns Assessment Noted Time PHQ-9 Depression Total Score: 16 01/23/ 025 4:26 PM EDT documented as of this encounter Care Teams Sign Out Clerk Relationship Specialty Start Date End Date Name, [place] [address] PCP - General Internal Medicine 07/12/24 documented as of this encounter
--- NOTE | ~2025-01-28 | XR_ITS ---
EXAMINATION: XR CHEST CLINICAL INFORMATION: chest pain COMPARISON: December 29, 2024. TECHNIQUE: PA and lateral views. FINDINGS: No consolidation, pleural effusion or pneumothorax. No hyperinflation. Cardiomediastinal silhouette size is normal. Mild S-shaped curvature of the thoracolumbar spine. Patient's large body habitus. XR/XR chest 2V IMPRESSION: No acute airspace disease. Mild scoliosis, thoracolumbar spine. Electronically signed by: Torin Basilio MD 01/28/2025 03:55 PM EDT RP
--- NOTE | 2025-01-28 15:35 | ECG_ITS ---
Test Reason : CP Blood Pressure : */* mmHG Vent. Rate : 93 BPM Atrial Rate : 93 BPM P-R Int : 158 ms QRS Dur : 92 ms QT Int : 346 ms P-R-T Axes : 65 59 15 degrees QTcB Int : 430 ms Normal sinus rhythm with sinus arrhythmia Normal ECG When compared with ECG of 02-Jan-2025 17:04, No significant change was found Referred By: Anne Kimball Electronically Signed By: IRAIS KAN
[2025-01-28 15:40] VITALS: BP 139/65; PULSE 82; RESP 16; TEMP 36.7; O2SAT 99; BMI 40.7
--- NOTE | 2025-01-28 15:40 | ED_ITS ---
HPI - General Adult General Chief complaint: Chest Pain Stated complaint: Chest pain Time Seen by Provider: 01/28/25 17:36 Source: patient and family (patient's parents) Mode of arrival: ambulatory Limitations: no limitations History of Present Illness ED Provider: Anne Kimball PA-C HPI narrative: Patient is a 24 year old assigned male at with a history of anxiety - recently started on Sertraline and has his first therapy appointment scheduled tomorrow, presenting to the emergency department today with chest pain, panic attacks, and thought rumination. Patient states that he has been having panic attacks several times a day and states this just feels weird and that he cannot stop continually thinking of past events. Patient states that he was recently started on Sertraline (4 days ago) but he is continuing to have these symptoms. Patient denies any thoughts of hurting himself or others. Patient states that he has his first therapy appointment tomorrow. Related Data Home Medications ?Medication ?Instructions ?Recorded ?Confirmed buspirone 10 mg tablet 10 mg PO BID 08/03/24 Previous Rx's ?Medication ?Instructions ?Recorded hydroxyzine HCl 50 mg tablet 50 mg PO BID PRN for anxi ety #60 08/15/24 tabs buprenorphine 8 mg-naloxone 2 mg 1 tab sublingual JESSICA Y 30 days #30 12/05/24 sublingual tablet tabs acetaminophen 325 mg tablet 650 mg (2 x 325 mg) PO Q8H #21 tabs 12/30/24 (Tylenol) ibuprofen 200 mg capsule 400 mg (2 x 200 mg) PO Q8H 5 days 12/30/24 #30 caps lidocaine 4 % topical patch 1 patch topical DAILY PRN pain #10 12/30/24 (AsperFlex (lidocaine)) ea Allergies Allergy/AdvReac Type Severity Reaction Status Date / Time No Known Allergies (No Known Allergy Verified 01/28/25 15:41 Allergies*) Review of Systems 2 Constitutional: Constitutional: Reports as per HPI Eyes: Eyes: Reports as per HPI ENT: Reports as per HPI Cardiovascular: Cardiovascular: Reports as per HPI Respiratory: Respiratory: Reports as per HPI Gastrointestinal: Gastrointestinal: Reports as per HPI Genitourinary: Genitourinary: Reports as per HPI Musculoskeletal: Musculoskeletal: Reports as per HPI Integumentary/Breasts: Skin/Breast: Reports as per HPI Neurologic: Reports as per HPI Psychiatric: Psychiatric: Reports as per HPI Endocrine: Endocrine: Reports as per HPI Hematologic/Lymphatic: Hematologic/Lymphatic: Reports as per HPI Allergic/Immunologic: Allergic/Immunologic: Reports as per HPI [facility] Past Medical History Attestation statement: The following information was validated with the patient. (patient's parents validated all information) Source: old records reviewed, obtained from family (patient's parents provided additional history and confirmed the history provided by the patient. ) and nursing notes reviewed Social History Social History Substance Use Type: Marijuana Physical Exam ED Vital Signs: Vital Signs - 24 hr 01/28/25 15:40 01/28/25 17:31 Temperature 98.0 F 98.2 F Pulse Rate 82 80 Respiratory Rate 16 13 Blood Pressure 139/65 150/82 H Pulse Oximetry 99 99 Oxygen Delivery Method Room Air Room Air BMI result Body Mass Index 40.7 Const General: cooperative, no acute distress, alert and awake Nutritional Appearance: well nourished Orientation/consciousness: patient oriented x3 HENMT Head: Yes normal to inspection and Yes atraumatic Ears: hearing grossly normal bilaterally and external ears normal General nose exam: Normal external nose present, no nasal discharge noted and no epistaxis Face and sinus: Yes normal facial exam, No abrasion and No laceration Mouth: Normal oral and palatal mucosa present, no drooling and no muffled voice Eyes General: appearance normal, both eyes and all related structures Periorbital: periorbital findings normal Eyelids: Yes eyelids normal Conjunctivae: conjunctivae normal Pupils: Equal, round and reactive pupils present EOM: EOMs intact bilaterally Neck Neck: Yes normal visual inspection and Yes full ROM Resp Effort & Inspection: normal respiratory effort and able to speak in complete sentences Neuro General: patient oriented x3, moves all extremities and CN's II-XI intact bilaterally Cranial nerves: Yes Equal, round and reactive pupils present Cognition (Neuro): normal cognition Extrem General: Yes normal to inspection, Yes full ROM and Yes capillary refill normal Psych Appearance: grossly normal Mental Status: mental status grossly normal Affect: Anxious affect present Attitude: cooperative Thought process: Normal thought process present Thought content: Normal thought content present, suicidality and no homicidality Insight: Good insight present (Psych) Course Course Course Narrative: Rapid medical examination performed in triage by Anne Kimball PA-C. Patient is a 24 year old assigned male at presenting to the emergency department with chest pain and panic attacks. Patient states that he has been having chest pain and panic attacks much more often. Detailed physical exam and review of systems are deferred to the slitter creaser slotter operator. EKG, labs, imaging ordered. Patient placed back in the waiting room pending room availability and results. Medical Decision Making Medical Decision Making [facility] Narrative: Patient is a 24 year old assigned male at with a history of anxiety - recently started on Sertraline and has his first therapy appointment scheduled tomorrow, presenting to the emergency department today with chest pain, panic attacks, and thought rumination. Patient's physical exam showed an anxious individual but otherwise unremarkable. Patient's blood work was unremarkable. Patient's EKG was unremarkable. Patient's chest x-ray showed no acute process. I explained my physical exam findings as well as all test results to the patient and the patient's parents. I answered all questions asked by the patient and the patient's parents. Patient's clinical presentation is most consistent with a panic attack. I stressed the importance of the patient taking his medication as directed (either prescribed or as the over the counter packaging recommends). I stressed the importance of the patient following up with his primary care provider and with his therapist as directed / scheduled tomorrow. I stressed the importance of the patient returning to the emergency department immediately if his symptoms were to worsen or if he were to develop any dizziness, shortness of breath, difficulty breathing, chest pain, blurry vision, loss of vision, nausea, vomiting, abdominal pain, fever, chills, back pain, or any other complaints. Patient and the patient's parents verbalized agreement and understanding with this treatment plan and discharge. Differential Diagnosis Differential Diagnoses: The differential diagnosis associated with the presentation includes Panic attacks Chest pain NSTEMI STEMI Admission/Observation Consideration of admission/observation: Escalation of care including admission/observation considered Patient would have been admitted to the hospital had his work up had any findings where hospital admission was appropriate and his clinical presentation warranted hospital admission. Lab Data [facility] Lab Attestation statement: I reviewed the patient's lab results. My interpretation of these results are in the [facility] Rationale portion of this note. 01/28/25 16:51 01/28/25 16:51 Labs: Lab Results 01/28/25 Range/Units 16:51 WBC 9.7 (4.8-10.8) X10*3/uL RBC 5.04 (4.60-5.80) X10*6/uL Hgb 15.4 (14.0-18.0) g/dl Hct 42.4 (42.0-52.0) % MCV 84.1 (80.0-98.0) fL MCH 30.6 (27.0-33.0) pg MCHC 36.3 H (31.0-36.0) g/dl RDW 11.6 (11.0-16.0) % Plt Count 246 (160-400) X10*3/uL MPV 9.8 (9.4-12.4) fL Immature Gran % (Auto) 0.4 (0.0-0.4) % Neut % (Auto) 72.2 (45-73) % Lymph % (Auto) 18.7 L (20-40) % Campbell % (Auto) 7.7 (2-11) % Eos % (Auto) 0.7 (0-4) % Baso % (Auto) 0.3 (0-2) % Lymph # (Auto) 1.8 (1.2-4.9) X10*3/uL Campbell # (Auto) 0.8 (0.1-1.2) X10*3/uL Eos # (Auto) 0.1 (0.0-0.4) X10*3/uL Baso # (Auto) 0.0 (0.0-0.2) X10*3/uL Abs Immat Gran (auto) 0.04 H (0.00-0.03) X10*3/uL Absolute Neuts (auto) 7.0 (2.0-8.3) x10*3/uL Absolute Nucleated RBC 0.000 (0.0-0.012) X10*3/uL Nucleated RBC % (auto) 0.0 (0.0-0.2) /100WBC Sodium 142 (135-145) mmol/L Potassium 3.9 (3.3-5.1) mmol/L Chloride 106 (96-108) mmol/L Carbon Dioxide 29 (22-29) mmol/L Anion Gap 11 L (12-20) BUN 13 (9-16) mg/dL Creatinine 1.08 (0.5-1.4) mg/dL Estim Creat Clear Calc 133.6 Estimated GFR > 60 Random Glucose 93 (60-115) mg/dL Calcium 9.2 (8.4-10.2) mg/dL Magnesium 2.1 (1.6-2.6) mg/dL Total Bilirubin 0.5 (0.0-1.0) mg/dL AST 30 (5-37) U/L ALT 28 (0-40) U/L Alkaline Phosphatase 76 (39-117) U/L Troponin I High Sens < 2.7 (<3.5-35.0) ng/L Total Protein 7.5 (6.5-8.0) g/dL Albumin 4.5 (3.5-5.0) g/dL Independent Interpretation I performed an independent interpretation of an: EKG and Plain X-Ray Interpretation: My interpretation is in agreement with the radiologist's impression of this imaging study. L EXAMINATION: XR CHEST CLINICAL INFORMATION: chest pain COMPARISON: December 29, 2024. TECHNIQUE: PA and lateral views. FINDINGS: No consolidation, pleural effusion or pneumothorax. No hyperinflation. Cardiomediastinal silhouette size is normal. Mild S-shaped curvature of the thoracolumbar spine. Patient's large body habitus. XR/XR chest 2V IMPRESSION: No acute airspace disease. Mild scoliosis, thoracolumbar spine. Electronically signed by: Torin Basilio MD 01/28/2025 03:55 PM EDT Dictated By: Torin Pak MD Signed By: Electronically signed by Torin Randall MD 01/28/25 1555 I independently interpreted this EKG and am in agreement with the below findings: Vent. Rate: 93 BPM Atrial Rate: 93 BPM P-R Int: 158 ms QRS Dur: 92 ms QT Int: 346 ms P-R-T Axes: 65 59 15 degrees QTcB Int: 430 ms Normal sinus rhythm with sinus arrhythmia Normal ECG When compared with ECG of 02-Jan-2025 17:04, No significant change was found DD/ [id number] Radiology Impression Discussion of test interpretation with radiology: I have reviewed the radiologist's reading. Independent Historian Clinical information obtained from an independent historian. History obtained from or confirmed by: Parent (patient's parents provided additional history and confirmed the history provided by the patient. ) Discharge Plan Discharge Clinical Impression: Generalized anxiety disorder, Atypical chest pain Patient Disposition: Home, Self-Care Instructions: Generalized Anxiety Disorder (ED), Noncardiac Chest Pain (ED), Panic Attack (ED) Additional Instructions: Please continue taking your medication as prescribed. Your work up today showed no EMERGENT cause for your symptoms, your blood work + chest x-ray + EKG were all NORMAL. Please see your therapist as directed - tomorrow (01/29/2025). IF you are prescribed home medications and/or you are taking over the counter medications at home - it is very important you continue to do so as prescribed / directed unless told otherwise. Follow up with your primary care provider. Return to the emergency department immediately if your symptoms worsen or if you develop any numbness, tingling, dizziness, shortness of breath, difficulty breathing, chest pain, blurry vision, loss of vision, nausea, vomiting, abdominal pain, fever, chills, back pain, or any other complaints. Please see the information below about our Patient Portal. If you are not yet enrolled in the [facility] Patient Portal, you will receive an enrollment email invitation following your visit to any [facility] setting. You may also self-enroll in the Patient Portal by visiting our website: [email or web address] The following information is required to access the Patient Portal: - Your [facility] Medical Record Number - Your personal home email address (must match what is in your electronic medical record, Registration staff can assist with this) - Name - Date of Capabilities of the Patient Portal: - Message some providers - View upcoming appointments - Access your health summary, medical history, and visit history - View current conditions and allergies - View procedure and lab results - View your medications, including guidelines, side effects, and precautions - Complete pre-appointment questionnaires requested by your provider - Ready summary reports of your office visits and procedures To access the Patient Portal Mobile [employer], follow these directions: - Search alooma in the [employer] Store or [employer] Store - Download the [employer] - Search for [facility] - Enter your login/password Prescriptions: No Action hydroxyzine HCl 50 mg tablet 50 mg PO BID PRN (Reason: for anxiety) Qty: 60 1RF acetaminophen [Tylenol] 325 mg tablet 650 mg PO Q8H Qty: 21 0RF lidocaine [AsperFlex (lidocaine)] 4 % adhesive patch,medicated 1 patch topical DAILY PRN (Reason: pain) Qty: 10 0RF ibuprofen 200 mg capsule 400 mg PO Q8H 5 Days Qty: 30 0RF buspirone 10 mg tablet 10 mg PO BID buprenorphine-naloxone 8-2 mg tablet, sublingual 1 tab sublingual DAILY 30 Days Qty: 30 1RF Referrals: [facility] [Primary Care Provider, Medical] Print Language: Syriac
[2025-01-28 17:00] LABS: MANUAL DIFF FLAG NO
[2025-01-28 17:04] LABS: Hematocrit 42.4 % (42.0-52.0); Hemoglobin 15.4 g/dl (14.0-18.0); Imm Gran Abs Auto 0.04 X10*3/uL (0.00-0.03); Imm Gran Pct Auto 0.4 % (0.0-0.4); Lymphocytes Absolute Auto 1.8 X10*3/uL (1.2-4.9); Mean Corpuscular HGB Conc 36.3 g/dl (31.0-36.0); Mean Corpuscular Hemoglobin 30.6 pg (27.0-33.0); Mean Corpuscular Volume 84.1 fL (80.0-98.0); NRBC Abs Auto 0.000 X10*3/uL (0.0-0.012); NRBC Pct Auto 0.0 /100WBC (0.0-0.2); Platelet Count 246 X10*3/uL (160-400); Red Blood Count 5.04 X10*6/uL (4.60-5.80); White Blood Count 9.7 X10*3/uL (4.8-10.8)
[2025-01-28 17:27] LABS: Alanine Aminotransferase 28 U/L (0-40); Albumin Level 4.5 g/dL (3.5-5.0); Alkaline Phosphatase 76 U/L (39-117); Anion Gap 11 (12-20); Aspartate Amino Transferase 30 U/L (5-37); Blood Urea Nitrogen 13 mg/dL (9-16); Calcium 9.2 mg/dL (8.4-10.2); Carbon Dioxide 29 mmol/L (22-29); Chloride 106 mmol/L (96-108); Creatinine Clr Calc Pharmacy 133.6; Estimated Glomerular Filt Rate > 60; Magnesium 2.1 mg/dL (1.6-2.6); Potassium 3.9 mmol/L (3.3-5.1); Sodium 142 mmol/L (135-145); Total Protein 7.5 g/dL (6.5-8.0); Troponin-I High Sensitivity < 2.7 ng/L (<3.5-35.0)
[2025-01-28 17:31] VITALS: BP 150/82; PULSE 80; RESP 13; TEMP 36.8; O2SAT 99
[2025-01-28 18:05] VITALS: BP 150/82; PULSE 80; RESP 13; TEMP 36.8; O2SAT 99
--- OUTSIDE RECORDS SUMMARY | 2025-01-28 18:50 | XMS_ITS | Clinical Summary ---
Author Organization [employer] Address [address] [place] [address] 7t [place] [address] Care Team Providers Care Research Development Director Name Role Phone Name, Arnaldo TA Primary Care Provider [phone] Allergies No known active allergies Medications * This document contains information received from the source organization and may not represent a complete record from that organization. Suboxone 8-2 MG SL film TAKE 1 FILM SUBLINGUALLY DAILY 07/06/19 25 Active doxycycline (Vibra-Tabs) 100 MG tabletIndicati ons:On pre-exposure prophylaxis for HIV Take 2 tabs once within 72 hours of unprotected intercourse. Take with a full glass of water and do not lie down for at least 30 minutes after. 60 tablet 12/01/19 25 Active emtricitabine- tenofovir AF (Descovy) 200-25 MG tabletIndicati ons:Pre-Exposu re Prophylaxis of HIV Take 1 tablet by mouth Once per day. 30 tablet 2 12/01/19 25 Active busPIRone (Buspar) 10 MG tabletIndicati ons:Panic attacks,Anxiet y Take 1 tablet (10 mg) by mouth 3 times daily. 90 tablet 11 01/24/20 25 2025 Active sertraline (Zoloft) 25 MG tablet Take 1 tablet (25 mg) by mouth Once per day for 7 days, THEN 2 tablets (50 mg) Once per day. 67 tablet 3 01/24/20 25 2024 Active prazosin (Minipress) 1 MG capsule Take 1 capsule (1 mg) by mouth at bedtime for 7 days, THEN 2 capsules (2 mg) at bedtime. 67 capsule 2 01/24/20 25 2024 Active hydrOXYzine HCl (Atarax) 50 MG tablet Take 1 tablet (50 mg) by mouth every 8 (eight) hours if needed for anxiety. 90 tablet 1 01/24/20 Active FLUoxetine (PROzac) 20 MG capsule Take 1 capsule by mouth Once per day. 07/06/19 25 2024 Discontinued(T herapy completed) busPIRone (Buspar) 10 MG tabletIndicati ons:Anxiety,Pa kristine attacks Take 1 tablet (10 mg) by mouth 3 times daily. 90 tablet 11 07/13/19 25 2024 Discontinued(R eorder (will not trigger notification to Pharmacy)) hydrOXYzine HCl (Atarax) 50 MG tablet Take 1 tablet by mouth if needed in the morning and at bedtime for anxiety. 12/31/19 25 2024 Discontinued(R eorder (will not trigger notification to Pharmacy)) Active Problems Problem Noted Date Diagnosed Date Tobacco dependence syndrome 07/12/2024 Panic attacks 07/12/2024 Polysubstance (excluding opioids) dependence (CM S/HCC) 07/12/2024 Overview (07/12/2024): . Moderate episode of recurren t major depressive disorder (CMS/HCC) 02/23/2024 Anxiety 02/23/2024 PTSD (post-traumatic stress disorder) 02/23/2024 History of cocaine use 02/23/2024 Eczema 05/18/2017 Encounters * This document contains information received from the source organization and may not represent a complete record from that organization. Date Type Department Care Team Description 01/28/2025 Orders Only GENERIC EXTERNAL DATA DEPARTMENT Provider, Generic External Data 01/23/2025 3:45 PM EDT Office Visit [facility] [address] [place] [phone] Name, MD Arnaldo Anxiety (Primary Dx); Panic attacks 01/23/2025 Travel 12/31/2024 Refill [facility] [address] [place] [phone] Monisha Banda ANP On pre-exposure prophylaxis for HIV 12/29/2024 Orders Only GENERIC EXTERNAL DATA DEPARTMENT Provider, Generic External Data 11/30/2024 Orders Only [facility] [address] [place] [phone] Monisha Banda ANP On pre-exposure prophylaxis for HIV (Primary Dx) 11/30/2024 Orders Only [facility] [address] [place] [address] Bijal Yost, GO from Last 3 Months Immunizations Immunization Administration [...] Mass Index 41.81 01/23/2025 4:06 PM EDT Plan of Treatment Upcoming Encounters Date Type Department Care Team (Late st Contact Info) Description 04/09/2025 11:00 AM EST Office Visit [facility] [address] [place] [address] Name, MD Arnaldo [address] [place] [address] Health Maintenance Due Date Last Done Comments Lipid Panel 2000 Disability Screening 2000 Alcohol/Substance Use Screening 2012 Family Planning (PISQ) 07/02/2015 Pneumococcal Vaccine: Pediatrics (0 to 5 Years) and At-Risk Patients (6 to 49) Years (1 of 2 - PCV) 07/02/2019 01/30/2004, 02/24/2001, 2000, Additional history exists COVID-19 Vaccine ( - season) 2024 Influenza Vaccine (#1) 2024 , 05/08/2018, 07/05/2016, Additional history exists SDOH Screening 07/12/2025 07/12/2024 Depression Monitoring 07/23/2025 01/23/2025, 025 Tobacco Screening 01/23/2026 01/23/2025 DTaP/Tdap/Td Vaccines (8 - Td or Tdap) [...] Diagnosis Comments HIGH SENSITIVITY TROPONIN I Routine 01/28/2025 4:51 PM EDT MAGNESIUM Routine 01/28/2025 4:51 PM EDT COMPREHENSIVE METABOLIC PANEL Routine 01/28/2025 4:51 PM EDT CBC WITH AUTO DIFFERENTIAL Routine 01/28/2025 4:51 PM EDT XR CHEST 2 VIEWS Routine 01/28/2025 3:45 PM EDT ECG 12-LEAD Routine 01/24/2025 6:51 AM EDT Anxiety Panic attacks XR CHEST 1 VIEW Routine 12/30/2024 12:23 AM EDT HIGH SENSITIVITY TROPONIN I Routine 12/29/2024 10:54 PM EDT MAGNESIUM Routine 12/29/2024 10:54 PM EDT COMPREHENSIVE METABOLIC PANEL Routine 12/29/2024 10:54 PM EDT CBC WITH AUTO DIFFERENTIAL Routine 12/29/2024 10:54 PM EDT HEPATITIS C ANTIBODY ([facility]) Routine 11/27/2024 HIV ANTIBODY/ANTIGEN ([facility]) Routine 11/27/2024 SYPHILIS ABS ([facility]) Routine 11/27/2024 CHLAMYDIA/GONORRHEA - URINE ([facility]) Routine 11/27/2024 CHLAMYDIA/GONORRHEA THROAT SWAB ([facility]) Routine 11/27/2024 from Last 3 Months Results * High Sensitivity Troponin I (01/28/2025 4:51 PM EDT) Only the most recent of2 resultswithin the time period is included. [facility] TROPONIN I HIGH SENSITIVITY <2.7 <3.5 - 35.0 ng/L [facility] Comment:The [facility] high sens itivity Troponin-I results should beused in conjunction with other diagnostic information suchas ECG, clinical observations and information, and patientsymptoms to aid in the diagnosis of MO. 01/28/2025 4:51 PM EDT 01/28/2025 4:58 PM EDT us Generic External Data Provider LAB BLOOD ORDERAB LES Final Result [facility] [address] [place] [phone] * (ABNORMAL) CBC auto differential (01/28/2025 4:51 PM EDT) Only the most recent of2 resultswithin the time period is included. [facility] White Blood Count 9.7 4.8 - 10.8 X10*3/uL [facility] Red Blood Count 5.04 4.60 - 5.80 X10*6/uL [facility] Hemoglobin 15.4 14.0 - 18.0 g/dl [facility] Hematocrit 42.4 42.0 - 52.0 % [facility] Mean Corpuscular Volume 84.1 80.0 - 98.0 fL [facility] Mean Corpuscular Hemoglobin 30.6 27.0 - 33.0 pg [facility] Mean Corpuscular HGB Conc 36.3(H) 31.0 - 36.0 g/dl [facility] Red Cell Distribution Width 11.6 11.0 - 16.0 % [facility] Platelet Count 246 160 - 400 X10*3/uL [facility] Mean Platelet Volume 9.8 9.4 - 12.4 fL [facility] Neutrophils Percent Auto 72.2 45 - 73 % [facility] Imm Gran Pct Auto 0.4 0.0 - 0.4 % [facility] Lymphocytes Percent Auto 18.7(L) 20 - 40 % [facility] Monocytes Percent Auto 7.7 2 - 11 % [facility] Eosinophils Percent Auto 0.7 0 - 4 % [facility] Basophils Percent Auto 0.3 0 - 2 % [facility] NRBC Pct Auto 0.0 0.0 - 0.2 /100WBC [facility] Neutrophils Absolute Auto 7.0 2.0 - 8.3 x10*3/uL [facility] Imm Gran Abs Auto 0.04(H) 0.00 - 0.03 X10*3/uL [facility] Lymphocytes Absolute Auto 1.8 1.2 - 4.9 X10*3/uL [facility] Monocytes Absolute Auto 0.8 0.1 - 1.2 X10*3/uL [facility] Eosinophils Absolute Auto 0.1 0.0 - 0.4 X10*3/uL [facility] Basophils Absolute Auto 0.0 0.0 - 0.2 X10*3/uL [facility] NRBC Abs Auto 0.000 0.0 - 0.012 X10*3/uL [facility] 01/28/2025 4:51 PM EDT 01/28/2025 4:58 PM EDT us Generic External Data Provider LAB BLOOD ORDERAB LES Final Result [facility] [address] [place] [phone] * Magnesium (01/28/2025 4:51 PM EDT) Only the most recent of2 resultswithin the time period is included. Magnesium 2.1 1.6 - 2.6 mg/dL [facility] 01/28/2025 4:51 PM EDT 01/28/2025 4:58 PM EDT us Generic External Data Provider LAB BLOOD ORDERAB LES Final Result [facility] [address] [place] [phone] * (ABNORMAL) Comprehensive Metabolic Panel (01/28/2025 4:51 PM EDT) Only the most recent of2 resultswithin the time period is included. Pathologist [facility] Sodium 142 135 - 145 mmol/L [facility] Potassium 3.9 3.3 - 5.1 mmol/L [facility] Chloride 106 96 - 108 mmol/L [facility] Carbon Dioxide 29 22 - 29 mmol/L [facility] Anion Gap 11(L) 12 - 20 [facility] Urea Nitrogen (BUN) 13 9 - 16 mg/dL [facility] Creatinine, Serum 1.08 0.5 - 1.4 mg/dL [facility] Creatinine Clr Calc Pharmacy 133.6 [facility] Comment:eGFR (calculated fro m the MDRD study equation) and eCrCl(calculated from the Cockcroft-Gault equation) are based ondifferent parameters and may not yield comparable results.If eCrCl result is absurd, please check patient'sheight/weight. Estimated Glomerular Filt Rate >60 [facility] Comment:Chronic Kidney Disea se: Estimated GFR < 60 mL/min/1.92i2Gnocso Kidney Disease: Estimated GFR < 15 mL/min/1.73m2 Glucose 93 60 - 115 mg/dL [facility] Calcium 9.2 8.4 - 10.2 mg/dL [facility] Bilirubin, Total 0.5 0.0 - 1.0 mg/dL [facility] Aspartate Amino Transferase 30 5 - 37 U/L [facility] Alanine Aminotransferase 28 0 - 40 U/L [facility] Total Protein 7.5 6.5 - 8.0 g/dL [facility] Albumin Level 4.5 3.5 - 5.0 g/dL [facility] Alkaline Phosphatase 76 39 - 117 U/L [facility] 01/28/2025 4:51 PM EDT 01/28/2025 4:58 PM EDT us Generic External Data Provider LAB BLOOD ORDERAB LES Final Result Performing Organization Address City/State/[facility] Co de Phone Number [facility] [address] [place] [phone] * XR Chest 2 Views (01/28/2025 3:45 PM EDT) Anatomical Region Laterality Modality Chest Radiographic Mary Jo ging 01/28/2025 3:45 PM EDT Narrative 01/28/2025 3:57 PM EDT [address] [address] XRay Report Signed Patient: Yassine Rodriguez MR#: [id number] 16 : 2000 Acct:[id number] Age/Sex: 24 / M ADM Date: 01/28/25 Loc: .ED Attending Dr: Ordering Physician: Anne Kimball Date of Service: 01/28/25 Procedure(s): XR chest 2V Accession Number(s): [id number] cc: Anne Kimball; [facility] Reason for Exam: chest pain EXAMINATION: XR CHEST CLINICAL INFORMATION: chest pain COMPARISON: December 29, 2024. TECHNIQUE: PA and lateral views. FINDINGS: No consolidation, pleural effusion or pneumothorax. No hyperinflation. Cardiomediastinal silhouette size is normal. Mild S-shaped curvature of the thoracolumbar spine. Patient's large body habitus. XR/XR chest 2V IMPRESSION: No acute airspace disease. Mild scoliosis, thoracolumbar spine. Electronically signed by: Torin Basilio MD 01/28/2025 03:55 PM EDT RP Dictated By: Torin Pak MD Signed By: <Electronically signed by Torin Randall MD in OV> 01/28/25 1555 DD/ 1545 TD/TT: 01/28/25 1550 Privacy Specialist: Procedure Note Donotuseinterpreter, Image - 01/28/2025 [place] [address] XRay Report Signed Patient: Erik Rodriguez#: [id number] 16 : 2000Acct:[id number] Age/Sex: 24 / MADM Date: 01/28/25 Loc: .ED Attending Dr: Ordering Physician: Anne Kimball Date of Service: 01/28/25 Procedure(s): XR chest 2V Accession Number(s): [id number] cc: Anne Kimball; [facility] Reason for Exam: chest pain EXAMINATION: XR CHEST CLINICAL INFORMATION: chest pain COMPARISON: December 29, 2024. TECHNIQUE: PA and lateral views. FINDINGS: No consolidation, pleural effusion or pneumothorax. No hyperinflation. Cardiomediastinal silhouette size is normal. Mild S-shaped curvature of the thoracolumbar spine. Patient's large body habitus. XR/XR chest 2V IMPRESSION: No acute airspace disease. Mild scoliosis, thoracolumbar spine. Electronically signed by: Torin Basilio MD 01/28/2025 03:55 PM EDT RP Dictated By: Torin Pak MD Signed By: <Electronically signed by Torin Randall MDin OV> 01/28/25 1555 DD/ 1545 TD/TT: 01/28/25 1550 Privacy Specialist: us [facility] External Provider IMG XR PROCEDURES Final Result * ECG 12 lead (01/24/2025 6:51 AM EDT) Narrative Name, MD Arnaldo - 01/24/2025 6:51 AM EDT Normal EKG, NSR, HR of 80, no ST-T changes Arnaldo Name ECG ORDERABLES Final Result * XR Chest 1 View (12/30/2024 12:23 AM EDT) Anatomical Region Laterality Modality Chest Radiographic Mary Jo ging 12/30/2024 12:2 3 AM EDT Narrative 12/30/2024 12:23 AM EDT [address] [address] XRay Report Signed Patient: Yassine Rodriguez MR#: [id number] 16 : 2000 Acct:[id number] Age/Sex: 24 / M ADM Date: 12/29/24 Loc: .ED Attending Dr: Ordering Physician: Elodia Choe DO Date of Service: 12/29/24 Procedure(s): XR chest 1V Accession Number(s): [id number] cc: Elodia Choe DO; [facility] CLINICAL HISTORY: chest px 1 view chest x-ray. Comparison: None provided. Findings: No consolidation, pneumothorax, or effusion. Heart size normal. Impression: 1. No acute cardiopulmonary process. No focal pulmonary consolidation. This document has been electronically signed by: Bg Rodas MD on 12/30/2024 00:23:01 Dictated By: Bg Rodas MD Signed By: <Electronically signed by Bg Rodas MD in OV> 12/30/2422 DD/ TD/TT: 12/30/2422 Privacy Specialist: Procedure Note Donotuseinterpreter, Image - 12/30/[address] [address] XRay Report Signed Patient: Yassine RodriguezMR#: [id number] 16 : 2000Acct:[id number] Age/Sex: 24 / MADM Date: 12/29/24 Loc: HO.ED Attending Dr: Ordering Physician: Elodia Choe DO Date of Service: 12/29/24 Procedure(s): XR chest 1V Accession Number(s): [id number] cc: Elodia Choe DO; [facility] CLINICAL HISTORY: chest px 1 view chest x-ray. Comparison: None provided. Findings: No consolidation, pneumothorax, or effusion. Heart size normal. Impression: 1. No acute cardiopulmonary process. No focal pulmonary consolidation. This document has been electronically signed by: Bg Rodas MD on 12/30/2024 00:23:01 Dictated By: Bg Rodas MD Signed By: <Electronically signed by Bg Rodas MD in OV> 12/30/2422 DD/ TD/TT: 12/30/2422 Privacy Specialist: [facility] External Provider IMG XR PROCEDURES Edited Result - Final * Chlamydia/Gonorrhea Throat Swab ([place] [facility]) (11/27/2024) Chlamydia Throat Swab Negative Gonorrhea Throat Swab Negative Swab 11/27/2024 [facility] Provider LAB MICROBIOLOGY - GENERA L ORDERABLES Final Result * Chlamydia/Gonorrhea, Urine ([place] [facility]) (11/27/2024) Chlamydia, Urine Negative Negative, Indeterminate, None Detected, Invalid, Specimen unsatisfactory for evaluation, Weakly Positive, 2+ Gonorrhea, Urine Negative Negative, Indeterminate, None Detected, Invalid, Specimen unsatisfactory for evaluation, Weakly Positive, 2+ Urine 11/27/2024 [facility] Provider LAB URINE ORDERABLES Karen l Result * Syphilis Antibodies ([facility]) (11/27/2024) Syphilis Abs Nonreactive Borderline, Nonreactive, Weakly Reactive, Inconclusive, Specimen unsatisfactory for evaluation Blood Venous blood specimen / Unknown 11/27/2024 Historical Provider LAB BLOOD ORDERABLES Karen l Result * Hepatitis C Antibody ([facility]) (11/27/2024) Hepatitis C Ab Nonreactive Blood 11/27/2024 Historical Provider LAB BLOOD ORDERABLES Karen l Result * HIV Ab/Ag ([facility]) (11/27/2024) HIV Ag/Ab Nonreactive Blood 11/27/2024 Historical Provider LAB BLOOD ORDERABLES Karen l Result from Last 3 Months Insurance [facility] C3 * Guarantor: Yassine Rodriguez Account Type Relation to Patient Date of Phone Billing Address Personal/Family Self [address] [place] [address] * Guarantor: Yassine Rodriguez Account Type Relation to Patient Date of Phone Billing Address Personal/Family Self [address] [place] [address] Care Teams Research Development Director Relationship Specialty Start Date End Date Name, MD Arnaldo [address] [place] [address] PCP - General Internal Medicine 07/12/24
--- OUTSIDE RECORDS SUMMARY | 2025-01-28 18:50 | XMS_ITS | Encounter Summary ---
Author Organization [employer] Address [address] [facility] 7t [place] [address] Care Team Providers Care Busperson Name Role Phone Name, Arnaldo TA Primary Care Provider [phone] Reason for Visit * Reason Comments Med Refill Encounter Details Date Type Department Care Team ([facility] st Contact Info) Description 12/31/2024 Refill [facility] [address] [place], [place] [phone] Monisha Banda, ANP [address] [place] [address] On pre-exposure prophylaxis for HIV Social History Tobacco Use Types Packs/Day Years [...] with others, in a hotel, in a retirement, living outside on the street, on a [...] Description 04/09/2025 11:00 AM EST Office Visit [facility] [address] [place] [address] NameArnaldo MD [address] [place] [address] documented as of this encounter Visit Diagnoses Diagnosis On pre-exposure prophylaxis for HIV documented in this encounter Additional Health Concerns Assessment Noted Time PHQ-9 Depression Total Score: 4 07/13/19 11:25 AM EDT documented as of this encounter Care Teams Busperson Relationship Specialty Start Date End Date NameArnaldo MD [address] [place] [address] PCP - General Internal Medicine 07/12/24 documented as of this encounter
--- OUTSIDE RECORDS SUMMARY | 2025-01-28 18:50 | XMS_ITS | Clinical Summary ---
Author Organization [facility] Address [address] [place] [address] Care Team Providers Care Slot Floor Supervisor Name Role Phone Pcp, No Primary Care [...] - 19+ 3-dose series) 07/02/2019 Influenza Vaccine 11/30/2024 COVID-19 Vaccine ( - 2023-2 5 season) [...] 0.79 S/CO ratio 01/09/2024 11:18 AM EDT [facility] Hepatitis C Antibody Interpretation Nonreactive Nonreactive 01/09/2024 11:18 AM EDT [facility] Comment:Antibodies to HCV no t detected. This does not exclude the possibility of exposure to HCV. Blood (Plasma/Serum) 01/07/2024 12:18 PM EDT 01/07/2024 12:35 PM EDT Kim HERNANDES LAB BLOOD ORDERABLES Final Result Performing Organization Address [facility] Co de Phone Number [facility] [address] * HIV 1/2 Ag/Ab CMIA Reflex to Confirmation (01/07/2024 12:18 PM EDT) HIV 1/2 Ag/Ab CMIA Nonreactive Nonreactive 01/09/2024 11:18 AM EDT [facility] Comment: Results show no [...] BLOOD ORDERABLES Final Result Performing Organization Address [facility] Co de Phone Number [facility] [address] from Last 3 Months or Most Recently Relevant to Health Maintenance Insurance [facility] Care Teams Slot Floor Supervisor Relationship Specialty Start Date End Date Pcp, No PCP - General 06/23/23
--- OUTSIDE RECORDS SUMMARY | 2025-01-28 18:51 | XMS_ITS | Encounter Summary ---
Author Organization [employer] Address [address] [place] [address] 7t [place] [address] Care Team Providers Care Pc Installation Engineer Name Role Phone Name, Arnaldo TA Primary Care Provider [phone] Encounter Details Date Type Department Care Team (Latest Contact Info) Description 01/23/2025 Travel Social History Tobacco Use Types Packs/Day [...] with others, in a hotel, in a group home, living outside on the street, on [...] t he electric, gas, oil or water [employer] threatened to shut off services in your [...] AM EDT documented as of this encounter Functional Status * Over the past 2 weeks, how often have you been bothered by any of the following problems? Question Answer Date of Assessment Author Patient Health Questionnaire -2 Score 6 01/23/2025 4:26 PM Min Angel [place] * Little interest or pleasure in doing things Answer Date of Assessment Author Nearly every day 01/23/2025 4:26 PM Cornel Angel [place] * Feeling down, depressed, or hopeless Answer Date of Assessment Author Nearly every day 01/23/2025 4:26 PM Cornel Angel [place] * Trouble falling or staying asleep, or sleeping too much Answer Date of Assessment Author Nearly every day 01/23/2025 4:26 PM Cornel Angel [place] * Feeling tired or having little energy Answer Date of Assessment Author Nearly every day 01/23/2025 4:26 PM Cornel Angel [place] * Poor appetite or overeating Answer Date of Assessment Author Several days 01/23/2025 4:26 PM Cornel Angel [place] * Feeling bad about yourself - [...] JOSE DE JESUST Cornel Anne MA * Thoughts that you would be better off or hurting yourself in some way Answer Date of Assessment Author Not at all 01/23/2025 4:26 PM JOSE DE JESUST Cornel Anne MA * Patient Health Questionnaire-9 Score Answer Date of Assessment Author 16 01/23/2025 4:26 PM JOSE DE JESUST Cornel Anne MA * How difficult have these problems made it for you to do your work, take care of things at home, or get along with other people? Answer Date of Assessment Author Somewhat difficult 01/23/2025 4:26 PM EDT Cornel Woodard MA * Over the last 2 weeks, how often have you been bothered by any of the following problems? Question Answer Date of Assessment Author Feeling nervous, anxious, or on edge 3 01/23/2025 4:26 PM EDT Min Anne MA Not being able to stop or control worrying 3 01/23/2025 4:26 PM JOSE DE JESUST Min Anne [place] Worrying too much about different things 3 01/23/2025 4:26 PM JOSE DE JESUST Min Anne [place] Trouble relaxing 3 01/23/2025 4:26 PM EDT Cornel Caceres MA Being so restless that it is hard to sit still 3 01/23/2025 4:26 PM JOSE DE JESUST Min Anne MA Becoming easily annoyed or irritable 3 01/23/2025 4:26 PM JOSE DE JESUST Min Anne MA Feeling afraid as if somethi ng awful might happen 3 01/23/2025 4:26 PM Min Angel MA SOHA-7 Total Score 21 01/23/2025 4:26 PM JOSE DE JESUST Cornel Anne [place] documented as of this encounter Plan of Treatment Upcoming Encounters Date Type Department Care Team (Late st Contact Info) Description 04/09/2025 11:00 AM EST Office Visit [facility] [address] [place] [address] Name, MD Arnaldo [address] [place] [address] documented as of this encounter Visit Diagnoses Not on filedocumented in this encounter Additional Health Concerns Assessment Noted Time PHQ-9 Depression Total Score: 16 025 4:26 PM EDT documented as of this encounter Care Teams Pc Installation Engineer Relationship Specialty Start Date End Date Name, MD Arnaldo [address] [place] [phone] PCP - General Internal Medicine 07/12/24 documented as of this encounter
--- OUTSIDE RECORDS SUMMARY | 2025-01-28 18:51 | XMS_ITS | Encounter Summary ---
Author Organization [employer] Address [address] [place] [address] Care Team Providers Care Chiseler Head Name Role Phone Name, Arnaldo TA Primary Care Provider [phone] Encounter Details Date Type Department Care Team ([facility] st Contact Info) Description 01/28/2025 Orders Only GENERIC EXTERNAL DATA [...] with others, in a hotel, in a mcc, living outside on the street, on a [...] Description 04/09/2025 11:00 AM EST Office Visit [facility] [address] [place] [phone] Name, MD Arnaldo [address] [place] [address] documented as of this encounter Procedures Procedure Name Priority Date/Time Associated Diagnosis Comments HIGH SENSITIVITY TROPONIN I Routine 01/28/2025 4:51 PM EDT CBC WITH AUTO DIFFERENTIAL Routine 01/28/2025 4:51 PM EDT MAGNESIUM Routine 01/28/2025 4:51 PM EDT COMPREHENSIVE METABOLIC PANEL Routine 01/28/2025 4:51 PM EDT documented in this encounter Results * High Sensitivity Troponin I (01/28/2025 4:51 PM EDT) TROPONIN I HIGH SENSITIVITY <2.7 <3.5 - 35.0 ng/L [facility] Comment:The Parker high sens itivity Troponin-I results should beused in conjunction with other diagnostic information suchas ECG, clinical observations and information, and patientsymptoms to aid in the diagnosis of [place]. 01/28/2025 4:51 PM EDT 01/28/2025 4:58 PM EDT us Generic External Data Provider LAB BLOOD ORDERAB LES Final Result Performing Organization Address City/[facility]/ZIP Co de Phone Number [facility] [address] [place] [address] [phone] * Magnesium (01/28/2025 4:51 PM EDT) Pathologist [facility] Magnesium 2.1 1.6 - 2.6 mg/dL [facility] 01/28/2025 4:51 PM EDT 01/28/2025 4:58 PM EDT Generic External Data Provider LAB BLOOD ORDERAB LES Final Result Performing Organization Address [facility] Co de Phone Number [facility] [address] [place] [address] [phone] * (ABNORMAL) Comprehensive Metabolic Panel (01/28/2025 4:51 PM EDT) Pathologist [facility] Sodium 142 135 - 145 mmol/L [facility] Potassium 3.9 3.3 - 5.1 mmol/L [facility] Chloride 106 96 - 108 mmol/L [facility] Carbon Dioxide 29 22 - 29 mmol/L [facility] Anion Gap 11(L) 12 - 20 [facility] Urea Nitrogen (BUN) 13 9 - 16 mg/dL [facility] Creatinine, Serum 1.08 0.5 - 1.4 mg/dL [facility] Creatinine Clr Calc Pharmacy 133.6 [facility] Comment:eGFR (calculated fro m the MDRD study equation) and eCrCl(calculated from the Cockcroft-Gault equation) are based ondifferent parameters and may not yield comparable results.If eCrCl result is absurd, please check patient'sheight/weight. Estimated Glomerular Filt Rate >60 [facility] Comment:Chronic Kidney Disea se: Estimated GFR < 60 mL/min/1.73h0Aemjgn Kidney Disease: Estimated GFR < 15 mL/min/1.73m2 Glucose 93 60 - 115 mg/dL [facility] Calcium 9.2 8.4 - 10.2 mg/dL [facility] Bilirubin, Total 0.5 0.0 - 1.0 mg/dL [facility] Aspartate Amino Transferase 30 5 - 37 U/L [facility] Alanine Aminotransferase 28 0 - 40 U/L [facility] Total Protein 7.5 6.5 - 8.0 g/dL [facility] Albumin Level 4.5 3.5 - 5.0 g/dL [facility] Alkaline Phosphatase 76 39 - 117 U/L [facility] 01/28/2025 4:51 PM EDT 01/28/2025 4:58 PM EDT us Generic External Data Provider LAB BLOOD ORDERAB LES Final Result [facility] [address] [place] [address] [phone] * (ABNORMAL) CBC auto differential (01/28/2025 4:51 PM EDT) White Blood Count 9.7 4.8 - 10.8 X10*3/uL [facility] Red Blood Count 5.04 4.60 - 5.80 X10*6/uL [facility] Hemoglobin 15.4 14.0 - 18.0 g/dl [facility] Hematocrit 42.4 42.0 - 52.0 % [facility] Mean Corpuscular Volume 84.1 80.0 - 98.0 fL [facility] Mean Corpuscular Hemoglobin 30.6 27.0 - 33.0 pg [facility] Mean Corpuscular HGB Conc 36.3(H) 31.0 - 36.0 g/dl [facility] Red Cell Distribution Width 11.6 11.0 - 16.0 % [facility] Platelet Count 246 160 - 400 X10*3/uL [facility] Mean Platelet Volume 9.8 9.4 - 12.4 fL [facility] Neutrophils Percent Auto 72.2 45 - 73 % [facility] Imm Gran Pct Auto 0.4 0.0 - 0.4 % [facility] Lymphocytes Percent Auto 18.7(L) 20 - 40 % [facility] Monocytes Percent Auto 7.7 2 - 11 % [facility] Eosinophils Percent Auto 0.7 0 - 4 % [facility] Basophils Percent Auto 0.3 0 - 2 % [facility] NRBC Pct Auto 0.0 0.0 - 0.2 /100WBC [facility] Neutrophils Absolute Auto 7.0 2.0 - 8.3 x10*3/uL [facility] Imm Gran Abs Auto 0.04(H) 0.00 - 0.03 X10*3/uL [facility] Lymphocytes Absolute Auto 1.8 1.2 - 4.9 X10*3/uL [facility] Monocytes Absolute Auto 0.8 0.1 - 1.2 X10*3/uL [facility] Eosinophils Absolute Auto 0.1 0.0 - 0.4 X10*3/uL [facility] Basophils Absolute Auto 0.0 0.0 - 0.2 X10*3/uL [facility] NRBC Abs Auto 0.000 0.0 - 0.012 X10*3/uL [facility] 01/28/2025 4:51 PM EDT 01/28/2025 4:58 PM EDT us Generic External Data Provider LAB BLOOD ORDERAB LES Final Result Performing Organization Address City/State/[facility] Co de Phone Number [facility] [address] [place] [phone] documented in this encounter Visit Diagnoses Not on filedocumented in this encounter Additional Health Concerns Assessment Noted Time PHQ-9 Depression Total Score: 16 025 4:26 PM EDT documented as of this encounter Care Teams Chiseler Head Relationship Specialty Start Date End Date Name, MD Arnaldo [address] [place] [phone] PCP - General Internal Medicine 07/12/24 documented as of this encounter
== END 2025-01-28 18:05 | disposition home or self-care (01) ==
PROVIDERS: Physician Assistant Medical; Emergency Provider Emergency Medicine; PCP Internal Medicine Geriatric Medicine
DX: R07.89 Other chest pain (principal); F41.0 Panic disorder [episodic paroxysmal anxiety]; F41.1 Generalized anxiety disorder; Z79.899 Other long term (current) drug therapy
CPT/HCPCS: 36415; 71046; 80053; 83735; 84484; 85025; 93005; 99283; 99285

== ENCOUNTER → 2025-01-28 15:35 | Outpatient (BNV) | payer MEDICAID, SELFPAY | PROVIDERS: Emergency Provider Emergency Medicine; PCP Internal Medicine Geriatric Medicine; Visit Provider Internal Medicine | DX: R07.9 Chest pain, unspecified (principal) | CPT/HCPCS: 93010 ==

== ENCOUNTER → 2025-01-28 15:41 | Outpatient (BNV) | payer MEDICAID, SELFPAY | PROVIDERS: Visit Provider Radiology Diagnostic Radiology | DX: R07.9 Chest pain, unspecified (principal); M41.35 Thoracogenic scoliosis, thoracolumbar region | CPT/HCPCS: 71046 ==

== ENCOUNTER 2025-02-04 10:38 | Outpatient (REF) | payer MEDICAID, SELFPAY ==
[2025-02-04 12:35] LABS: Alanine Aminotransferase 34 U/L (0-40); Albumin Level 4.5 g/dL (3.5-5.0); Alkaline Phosphatase 78 U/L (39-117); Anion Gap 9 (12-20); Aspartate Amino Transferase 32 U/L (5-37); Blood Urea Nitrogen 14 mg/dL (9-16); Calcium 9.4 mg/dL (8.4-10.2); Carbon Dioxide 32 mmol/L (22-29); Chloride 103 mmol/L (96-108); Estimated Glomerular Filt Rate > 60; Potassium 4.2 mmol/L (3.3-5.1); Sodium 140 mmol/L (135-145); Total Protein 7.7 g/dL (6.5-8.0)
== END 2025-02-04 10:39 | disposition home or self-care (01) ==
LOC: HO.LAB 10:38
PROVIDERS: PCP Internal Medicine Geriatric Medicine; Visit Provider Clinical Nurse Specialist Psychiatric/Mental Health
DX: F11.21 Opioid dependence, in remission (principal); Z13.89 Encounter for screening for other disorder; Z13.1 Encounter for screening for diabetes mellitus; Z79.899 Other long term (current) drug therapy
CPT/HCPCS: 36415; 80048; 80076; 99212

== ENCOUNTER 2025-02-04 10:38 | Outpatient (AMB) | payer MEDICAID, SELFPAY ==
[2025-02-04 10:44] VITALS: BP 126/78; PULSE 74; O2SAT 98
--- NOTE | 2025-02-04 10:44 | A.OFFVIS_ITS ---
Vital Signs 02/04/25 10:44 BP 126/78 Pulse 74 Pulse Oximetry (%) 98 Intake Visit Reasons: MAT Allergies No Known Allergies (No Known Allergies*) Allergy (Verified 02/04/25 10:44) HPI Comments Details: A 24-year-old male presents for a follow-up visit related to CHRISTINE in sustained remission with buprenorphine-naloxone 8-2 mg daily. Denies use of opiates, alcohol, and other substances. Reports coping with increased symptoms of anxiety and notes he stopped vaping for nicotine and smoking cannabis approximately 2 weeks ago. The patient is followed for mental health services at [facility]. Denies suicidal and homicidal ideation, plan or intent at present time of visit. [facility] Social History Substance Use Type: Marijuana Review of Systems Const All systems reviewed & are unremarkable except as noted in HPI and below Physical Exam Vital Signs: Last Vital Signs Pulse 74 02/04/25 10:44 BP 126/78 02/04/25 10:44 Pulse Ox 98 02/04/25 10:44 Const General: cooperative Psych Appearance: well kempt Speech and movement: Normal speech and movement present Affect: Anxious affect present Attitude: cooperative Thought process: Normal thought process present Thought content: Normal thought content present Insight: Good insight present (Psych) Judgement: Good judgement present (Psych) Assessment & Plan Assessment & Plan (1) Opioid use disorder, moderate, in sustained remission: Code(s): F11.21 - Opioid dependence, in remission Category: Medical Plan The plan of care is to continue with buprenorphine-naloxone 8-2 mg daily and follow up with mental health therapist at [facility] to increase frequency of sessions. T/w provided education on relaxation techniques and education on connection between increase anxiety r/t stopping cannabis and vaping use two weeks earlier. Follow-up in 2 months or sooner if needed. Orders: Orders Basic Metabolic Panel Today Z13.1 - Encounter for screening for diabetes mellitus Medications: Refilled buprenorphine-naloxone 8-2 mg 1 tab sublingual DAILY 30 tabs 1RF 30 days Patient Instructions: - Continue with buprenorphine-naloxone as prescribed. - Follow up with mental health therapist. - Call 911, crisis center, or go to nearest emergency department if suicidal/homicidal ideation emerge. - Follow-up in 2 months or sooner if needed. - Call with questions, concerns, or to report side effects/new onset of symptoms to [facility]. - The patient verbalized understanding and agreed with plan of care. Coding Level of Care Code Est Pt Level 3 (67252) Diagnoses Opioid use disorder, moderate, in sustained remission F11.21
--- OUTSIDE RECORDS SUMMARY | 2025-02-04 12:39 | XMS_ITS | Clinical Summary ---
Author Organization [employer] Address [address] [place] [address] 7[address] [place] [address] Care Team Providers Care Supply Chain Systems Manager Name Role Phone Name, Arnaldo TA Primary Care Provider Hyacinth Summers RN Unavailable [phone] Emy Murdock Unavailable Allergies No known active allergies Medications * [...] recurren t major depressive disorder (CMS/HCC) 02/23/2024 PTSD (post-traumatic stress disorder) 02/23/2024 History of cocaine use 02/23/2024 SOHA (generalized anxiety disorder) 02/23/2024 Eczema 05/18/2017 Encounters * This document contains information received from the source organization and may not represent a complete record from that organization. Date Type Department Care Team Description 02/04/2025 Orders Only GENERIC EXTERNAL DATA DEPARTMENT Provider, Generic External Data 02/01/[address] [facility] [address] [place] [phone] NameArnaldo MD Care Coordination (CM/CHW outreach) 01/29/[address] [facility] [address] [place] [phone] NameArnaldo MD Care Coordination (CHW chart review) 01/29/[address] [facility] [address] [place] [phone] Arnaldo Ghosh MD Care Management (C3CM- chart review) 01/29/[address] [facility] [address] [place] [phone] Arnaldo Ghosh MD 01/28/2025 Orders Only GENERIC EXTERNAL DATA DEPARTMENT Provider, Generic External Data 01/23/2025 3:45 PM EDT Office Visit [address] [address] Arnaldo Ghosh MD Anxiety (Primary Dx); Panic attacks 01/23/2025 Travel 12/31/[address] [facility] [address] [address] Monisha Banda ANP On pre-exposure prophylaxis for HIV 12/29/2024 Orders Only GENERIC EXTERNAL DATA DEPARTMENT Provider, Generic External Data [facility] [address] [address] Monisha Banda ANP On pre-exposure prophylaxis for HIV (Primary Dx) 11/30/2024 Orders Only [address] [address] Bijal Yost RN from Last 3 Months Immunizations Immunization Administration [...] with others, in a hotel, in a longterm, living outside on the street, on a [...] Description 04/09/2025 11:00 AM EST Office Visit [facility] [address] [place] [phone] Name, MD Arnaldo [address] [place] [address] Health Maintenance Due Date Last Done Comments Lipid Panel 2000 Disability Screening 2000 Alcohol/Substance Use Screening 2012 Family Planning (PISQ) 07/02/2015 Pneumococcal Vaccine: Pediatrics (0 to 5 Years) and At-Risk Patients (6 to 49) Years (1 of 2 - PCV) 07/02/2019 01/30/2004, 02/24/2001, 2000, Additional history exists COVID-19 Vaccine ( season) 2024 Influenza Vaccine (#1) 2024 , [...] Procedure Name Priority Date/Time Associated Diagnosis Comments BASIC METABOLIC PANEL Routine 02/04/2025 11:26 AM EDT HEPATIC FUNCTION PANEL Routine 11:26 AM EDT HIGH SENSITIVITY TROPONIN I Routine 01/28/2025 4:51 [...] 11/27/2024 from Last 3 Months Results * Hepatic Function Panel (02/04/2025 11:26 AM EDT) Bilirubin, Total 0.7 0.0 - 1.0 mg/dL [facility] Bilirubin, Direct 0.2 0.0 - 0.5 mg/dL [facility] Aspartate Amino Transferase 32 5 - 37 U/L [facility] Alanine Aminotransferase 34 0 - 40 U/L [facility] Total Protein 7.7 6.5 - 8.0 g/dL [facility] Albumin Level 4.5 3.5 - 5.0 g/dL [facility] Alkaline Phosphatase 78 39 - 117 U/L [facility] 02/04/2025 11:2 6 AM EDT 02/04/2025 11:26 AM EDT us Generic External Data Provider LAB BLOOD ORDERAB LES Final Result Performing Organization Address [facility]/ZIP Co de Phone Number [facility] [address] [place] [phone] * (ABNORMAL) Basic Metabolic Panel (02/04/2025 11:26 AM EDT) Sodium 140 135 - 145 mmol/L [facility] Potassium 4.2 3.3 - 5.1 mmol/L [facility] Chloride 103 96 - 108 mmol/L [facility] Carbon Dioxide 32(H) 22 - 29 mmol/L [facility] Anion Gap 9(L) 12 - 20 [facility] Urea Nitrogen (BUN) 14 9 - 16 mg/dL [facility] Creatinine, Serum 1.10 0.5 - 1.4 mg/dL [facility] Estimated Glomerular Filt Rate >60 [facility] Comment:Chronic Kidney Disea se: Estimated GFR < 60 mL/min/1.30s7Iczjpk Kidney Disease: Estimated GFR < 15 mL/min/1.73m2 Glucose 101 60 - 115 mg/dL [facility] Calcium 9.4 8.4 - 10.2 mg/dL [facility] 02/04/2025 11:2 6 AM EDT 02/04/2025 11:26 AM EDT us Generic External Data Provider LAB BLOOD ORDERAB LES Final Result Performing Organization Address [facility]/ZIP Co de Phone Number [facility] [address] [place] [phone] * High Sensitivity Troponin I (01/28/2025 4:51 PM EDT) Only the most recent of2 resultswithin the time period is included. [facility] TROPONIN I HIGH SENSITIVITY <2.7 <3.5 - 35.0 ng/L [facility] Comment:The Parker high sens itivity Troponin-I results should beused in conjunction with other diagnostic information suchas ECG, clinical observations and information, and patientsymptoms to aid in the diagnosis of PR. 01/28/2025 4:51 PM EDT 01/28/2025 4:58 PM EDT us Generic External Data Provider LAB BLOOD ORDERAB LES Final Result [facility] [address] [place] [phone] * (ABNORMAL) CBC auto differential (01/28/2025 4:51 PM EDT) Only the most recent of2 resultswithin the time period is included. [facility] White Blood Count 9.7 4.8 - [...] LES Final Result [facility] [address] [place] [phone] * Magnesium (01/28/2025 4:51 PM EDT) Only the most recent of2 resultswithin the time period is included. Magnesium 2.1 1.6 - 2.6 mg/dL [facility] 01/28/2025 4:51 PM EDT 01/28/2025 4:58 PM EDT us Generic External Data Provider LAB BLOOD ORDERAB LES Final Result [facility] [address] [place] [phone] * (ABNORMAL) Comprehensive Metabolic Panel (01/28/2025 4:51 PM EDT) Only the most recent of2 resultswithin the time period is included. Sodium 142 135 - 145 mmol/L [facility] [...] Kidney Disea se: Estimated GFR < 60 mL/min/1.95e9Nrmauk Kidney Disease: Estimated GFR < 15 mL/min/1.73m2 [...] LES Final Result [facility] [address] [place] [phone] * XR Chest 2 Views (01/28/2025 3:45 PM EDT) Anatomical Region Laterality Modality Chest Radiographic Mary Jo ging 01/28/2025 3:45 PM EDT Narrative 01/28/2025 3:57 PM EDT [address] [address] XRay Report Signed Patient: Yassine Rodriguez MR#: [id number] 16 : 2000 Acct:[id number] Age/Sex: 24 / M ADM Date: 01/28/25 Loc: .ED Attending Dr: Ordering Physician: Anne Kimball Date of Service: 01/28/25 Procedure(s): XR chest 2V Accession Number(s): [id number] cc: Anne Kimball; [facility] Reason for Exam: chest pain EXAMINATION: XR [...] Torin Basilio MD 01/28/2025 03:55 PM EDT Dictated By: Torin Pak MD Signed By: <Electronically signed by Torin Randall MD in OV> 01/28/25 1555 DD/ 1545 TD/TT: 01/28/25 1550 Industrial Cleaning Technician: Procedure Note Donotuseinterpreter, Image - 01/28/[address] [address] XRay Report Signed Patient: Yassine RodriguezMR#: [id number] 16 : 2000Acct:[id number] Age/Sex: 24 / MADM Date: 01/28/25 Loc: HO.ED Attending Dr: Ordering Physician: Anne Kimball Date of Service: 01/28/25 Procedure(s): XR chest 2V Accession Number(s): [id number] cc: Anne Kimball; [facility] Reason for Exam: chest pain EXAMINATION: XR [...] 01/28/25 1555 DD/ 1545 TD/TT: 01/28/25 1550 Industrial Cleaning Technician: [facility] External Provider IMG XR PROCEDURES Final Result * ECG 12 lead (01/24/2025 6:51 AM EDT) Narrative Name, MD rAnaldo - 01/24/2025 6:51 AM EDT Normal EKG, NSR, HR of 80, no ST-T changes Arnaldo Ghosh MD ECG ORDERABLES Final Result * XR Chest 1 View (12/30/2024 12:23 AM EDT) Anatomical Region Laterality Modality Chest Radiographic Mary Jo ging 12/30/2024 12:2 3 AM EDT Narrative 12/30/2024 12:23 AM EDT [address] [address] XRay Report Signed Patient: Yassine Rodriguez MR#: [id number] 16 : 2000 Acct:[id number] Age/Sex: 24 / M ADM Date: 12/29/24 Loc: HO.ED Attending Dr: Ordering Physician: Elodia Choe DO Date of Service: 12/29/24 Procedure(s): XR chest 1V Accession Number(s): [id number] cc: Elodia Choe DO; [facility] CLINICAL HISTORY: chest px 1 view chest x-ray. Comparison: None provided. Findings: No consolidation, pneumothorax, or effusion. Heart size normal. Impression: 1. No acute cardiopulmonary process. No focal pulmonary consolidation. This document has been electronically signed by: Bg Rodas MD on 12/30/2024 00:23:01 Dictated By: Bg Rodas MD Signed By: <Electronically signed by Bg Rodas MD in OV> 12/30/2422 DD/ TD/TT: 12/30/2422 Industrial Cleaning Technician: Procedure Note Donotuseinterpreter, Image - 12/30/[address] [address] XRay Report Signed Patient: Yassine RodriguezMR#: [id number] 16 : 2000Acct:[id number] Age/Sex: 24 / MADM Date: 12/29/24 Loc: HO.ED Attending Dr: Ordering Physician: Elodia Choe DO Date of Service: 12/29/24 Procedure(s): XR chest 1V Accession Number(s): [id number] cc: Elodia Choe DO; [facility] CLINICAL HISTORY: chest px 1 view chest x-ray. Comparison: None provided. Findings: No consolidation, pneumothorax, or effusion. Heart size normal. Impression: 1. No acute cardiopulmonary process. No focal pulmonary consolidation. This document has been electronically signed by: Bg Rodas MD on 12/30/2024 00:23:01 Dictated By: Bg Rodas MD Signed By: <Electronically signed by Bg Rodas MD in OV> 12/30/2422 DD/ TD/TT: 12/30/2422 Industrial Cleaning Technician: Result [facility] External Provider IMG XR PROCEDURES Edited Result - Final * Chlamydia/Gonorrhea Throat Swab ([place] [facility]) (11/27/2024) Chlamydia Throat Swab Negative Gonorrhea Throat Swab Negative Swab 11/27/2024 Result [facility] Provider LAB MICROBIOLOGY - GENERA L ORDERABLES Final Result * Chlamydia/Gonorrhea, Urine ([place] D[facility]) (11/27/2024) Chlamydia, Urine Negative Negative, Indeterminate, None Detected, Invalid, Specimen unsatisfactory for evaluation, Weakly Positive, 2+ Gonorrhea, Urine Negative Negative, Indeterminate, None Detected, Invalid, Specimen unsatisfactory for evaluation, Weakly Positive, 2+ Urine 11/27/2024 Result [facility] Provider LAB URINE ORDERABLES Karen l Result * Syphilis Antibodies (DPH) (11/27/2024) Syphilis Abs Nonreactive Borderline, Nonreactive, Weakly Reactive, Inconclusive, Specimen unsatisfactory for evaluation Blood Venous blood specimen / Unknown 11/27/2024 Result [facility] Historical Provider LAB BLOOD ORDERABLES Karen l Result * Hepatitis C Antibody ([place] D[facility]) (11/27/2024) Hepatitis C Ab Nonreactive Blood 11/27/2024 Result [facility] Provider LAB BLOOD ORDERABLES Karen l Result * HIV Ab/Ag ([place] D[facility]) (11/27/2024) HIV Ag/Ab Nonreactive Blood 11/27/2024 Historical Provider LAB BLOOD ORDERABLES Karen chino Result from Last 3 Months Insurance [employer] C3 Care Teams Supply Chain Systems Manager Relationship Specialty Start Date End Date Name, MD Arnaldo [address] [place] [phone] PCP - General Internal Medicine 07/12/24 Hyacinth Summers RN [address] [place] [address] Registered Nurse Family Medicine 01/29/25 Emy Murdock 01/29/25
--- OUTSIDE RECORDS SUMMARY | 2025-02-04 12:39 | XMS_ITS | Encounter Summary ---
Author Organization [employer] Address [address] [place] [address] 7t [place] [address] Care Team Providers Care Felt Machine Mechanic Name Role Phone Name, Arnaldo TA Primary Care Provider [phone] Hyacinth Summers RN Unavailable [phone] Emy Murdock Unavailable Reason for Visit * Reason Comments Care Coordination CM/CHW outreach Encounter Details Date Type Department Care Team (Latest Contact Info) Description 02/01/2025 Patient Outreach [facility] [address] [place], [place] [phone] Name, MD Arnaldo [address] [place] [address] Care Coordination (CM/CHW outreach) Social History Tobacco Use Types Packs/Day Years [...] others, in a hotel, in a senior living, living outside on the street, on a [...] AM EDT documented as of this encounter Progress Notes * Emy Murdock - 02/01/2025 9:55 AM EDT CHW Emy Murdock, placed outbound call to patient introducing herself from [facility] CM Department, in regards to offering services. Patient's name and was confirmed. Patient agreesto participate in program. Appt. for initial assessment scheduled for 02/12/25 @ 10AM tele with CM Hyacinth Summers Rn. CHW reinforced direct contact information or CM forany additional questions or concerns and extended clinic hours on Mondays and Wednesdays, and Walk-In Urgent Care Located in [facility] of [facility]. Patient provided with after-hours line for [facility], , which offer night time triage service and option to transfer to graves registration specialist provider if needed. Patient verbalizes understanding, and able to repeat back to play writer. documented in this encounter Plan of Treatment Upcoming Encounters Date Type Department Care Team (Late st Contact Info) Description 04/09/2025 11:00 AM EST Office Visit [facility] [address] [place] [address] Name, MD Arnaldo [address] [place] [address] documented as of this encounter Visit Diagnoses Not on filedocumented in this encounter Additional Health Concerns Assessment Noted Time PHQ-9 Depression Total Score: 16 025 4:26 PM EDT documented as of this encounter Care Teams Felt Machine Mechanic Relationship Specialty Start Date End Date Name, MD Arnaldo [address] [place] [address] PCP - General Internal Medicine 07/12/24 Hyacinth Summers, GO [address] [place] [phone] Registered Nurse Family Medicine 01/29/25 Emy Murdock 01/29/25 documented as of this encounter
--- OUTSIDE RECORDS SUMMARY | 2025-02-04 12:39 | XMS_ITS | Encounter Summary ---
Author Organization [employer] Address [address] [place] [address] 7t [place] [address] Care Team Providers Care Senior Fire Protection Engineer Name Role Phone Name, Arnaldo TA Primary Care Provider [phone] Hyacinth Summers RN Unavailable [phone] Emy Murdock Unavailable Encounter Details Date Type Department Care Team (Late st Contact Info) Description 02/04/2025 Orders Only GENERIC EXTERNAL DATA [...] with others, in a hotel, in a intermediate, living outside on the street, on a [...] Description 04/09/2025 11:00 AM EST Office Visit [facility] [address] [place] [address] Name, MD rAnaldo [address] [place] [address] documented as of this encounter Procedures Procedure Name Priority Date/Time Associated Diagnosis Comments HEPATIC FUNCTION PANEL Routine 02/04/2025 11:26 AM EDT BASIC METABOLIC PANEL Routine 02/04/2025 11:26 AM EDT documented in this encounter Results * (ABNORMAL) Basic Metabolic Panel (02/04/2025 11:26 AM EDT) Sodium 140 135 - 145 mmol/L [facility] Potassium 4.2 3.3 - 5.1 mmol/L [facility] Chloride 103 96 - 108 mmol/L [facility] Carbon Dioxide 32(H) 22 - 29 mmol/L [facility] Anion Gap 9(L) 12 - 20 [facility] Urea Nitrogen (BUN) 14 9 - 16 mg/dL [facility] Creatinine, Serum 1.10 0.5 - 1.4 mg/dL [facility] Estimated Glomerular Filt Rate >60 [facility] Comment:Chronic Kidney Disea se: Estimated GFR < 60 mL/min/1.48m9Ygmelv Kidney Disease: Estimated GFR < 15 mL/min/1.73m2 Glucose 101 60 - 115 mg/dL [facility] Calcium 9.4 8.4 - 10.2 mg/dL [facility] 02/04/2025 11:2 6 AM EDT 02/04/2025 11:26 AM EDT Generic External Data Provider LAB BLOOD ORDERAB LES Final Result Performing Organization Address [facility] Co de Phone Number [facility] [address] [place] [phone] * Hepatic Function Panel (02/04/2025 11:26 AM EDT) Bilirubin, Total 0.7 0.0 - 1.0 mg/dL [facility] Bilirubin, Direct 0.2 0.0 - 0.5 mg/dL [facility] Aspartate Amino Transferase 32 5 - 37 U/L [facility] Alanine Aminotransferase 34 0 - 40 U/L [facility] Total Protein 7.7 6.5 - 8.0 g/dL [facility] Albumin Level 4.5 3.5 - 5.0 g/dL [facility] Alkaline Phosphatase 78 39 - 117 U/L [facility] 02/04/2025 11:2 6 AM EDT 02/04/2025 11:26 AM EDT Generic External Data Provider LAB BLOOD ORDERAB LES Final Result Performing Organization Address [facility]/ZIP Co de Phone Number [facility] [address] [place] [phone] documented in this encounter Visit Diagnoses Not on filedocumented in this encounter Additional Health Concerns Assessment Noted Time PHQ-9 Depression Total Score: 16 01/23/ 025 4:26 PM EDT documented as of this encounter Care Teams Senior Fire Protection Engineer Relationship Specialty Start Date End Date Name, MD Arnaldo [address] [place] [address] PCP - General Internal Medicine 07/12/24 Hyacinth Summers RN [address] [place] [address] Registered Nurse Family Medicine 01/29/25 Emy Murdock 01/29/25 documented as of this encounter
--- OUTSIDE RECORDS SUMMARY | 2025-02-04 12:39 | XMS_ITS | Encounter Summary ---
Author Organization [employer] Address [address] [facility] 7[address] [place] [address] Care Team Providers Care Music Instructor Name Role Phone Name, Arnaldo TA Primary Care Provider [phone] Hyacinth Summers RN Unavailable [phone] Eym Murdock Unavailable Reason for Visit * Reason Comments Med Refill Encounter Details Date Type Department Care Team (Late st Contact Info) Description 12/31/2024 Refill [facility] [address] [place], [place] [phone] Monisha Banda ANP [address] [place], [place] [phone] On pre-exposure prophylaxis for HIV Social History [...] with others, in a hotel, in a detention, living outside on the street, on a [...] Description 04/09/2025 11:00 AM EST Office Visit [facility] [address] [place] [phone] Name, MD Arnaldo [address] [place] [address] documented as of this encounter Visit Diagnoses Diagnosis On pre-exposure prophylaxis for HIV documented in this encounter Additional Health Concerns Assessment Noted Time PHQ-9 Depression Total Score: 4 07/13/19 25 11:25 AM EDT documented as of this encounter Care Teams Music Instructor Relationship Specialty Start Date End Date Name, MD Arnaldo [address] [place] [address] PCP - General Internal Medicine 07/12/24 Hyacinth Summers RN [address] [place] [address] Registered Nurse Family Medicine 01/29/25 Emy Murdock 01/29/25 documented as of this encounter
--- OUTSIDE RECORDS SUMMARY | 2025-02-04 12:39 | XMS_ITS ---
Author Organization [employer] Address [address] [facility] 7t [place] [address] Care Team Providers Care Rubber Press Operator Name Role Phone Name, Arnaldo TA Primary Care Provider [phone] Hyacinth Summers RN Unavailable [phone] Emy Murdock Unavailable CM Complex Status:Outreach In Progress (Enrolling) Start date:01/29/2025 Enrollment reason:ADT Feed Overview ED- Pt went to [facility] ED on 01/28/25. Case Team Name Relationship Phone Hyacinth Summers RN(Responsible Staff) Registered Nurse [phone] Continued Care and Services Coordination
--- OUTSIDE RECORDS SUMMARY | 2025-02-04 12:39 | XMS_ITS | Clinical Summary ---
Author Organization [facility] Address [address] [place] [address] Care Team Providers Care Fleece Tier Name Role Phone Pcp, No Primary Care [...] 0.79 S/CO ratio 01/09/2024 11:18 AM EDT [facility] Hepatitis C Antibody Interpretation Nonreactive Nonreactive 01/09/2024 11:18 AM EDT [facility] Comment:Antibodies to HCV no t detected. This does not exclude the possibility of exposure to HCV. Blood (Plasma/Serum) 01/07/2024 12:18 PM EDT 01/07/2024 12:35 PM EDT Kim HERNANDES LAB BLOOD ORDERABLES Final Result Performing Organization Address [facility] Co de Phone Number [facility] [address] * HIV 1/2 Ag/Ab CMIA Reflex to Confirmation (01/07/2024 12:18 PM EDT) HIV 1/2 Ag/Ab CMIA Nonreactive Nonreactive 01/09/2024 11:18 AM EDT [facility] Comment: Results show no evidence [...] BLOOD ORDERABLES Final Result Performing Organization Address [facility] Co de Phone Number [facility] [address] from Last 3 Months or Most Recently Relevant to Health Maintenance Insurance [facility] Care Teams Fleece Tier Relationship Specialty Start Date End Date Pcp, No PCP - General 06/23/23
--- OUTSIDE RECORDS SUMMARY | 2025-02-04 12:39 | XMS_ITS ---
Author Organization [employer] Address [address] [place] [address] 7t [place] [address] Care Team Providers Care Motion Picture Camera Operator Name Role Phone Name, Arnaldo TA Primary Care Provider [phone] Hyacinth Summers RN Unavailable [phone] Emy Murdock Unavailable CHW Complex Status:Outreach In Progress (Enrolling) Start date:01/29/2025 Enrollment reason:ADT Feed Overview ED- Pt went to [facility] ED on 01/28/25. Please outreach for enrollment. Case Team Name Relationship Phone Emy Murdock(Responsible Staff) [phone] Continued Care and Services Coordination
== END 2025-02-04 11:08 | disposition home or self-care (01) ==
LOC: HO.HCC 10:38
PROVIDERS: PCP Internal Medicine Geriatric Medicine; Visit Provider Clinical Nurse Specialist Psychiatric/Mental Health
DX: F11.21 Opioid dependence, in remission (principal)
CPT/HCPCS: 99213

== ENCOUNTER 2025-04-04 10:52 | Outpatient (AMB) | payer MEDICAID, SELFPAY ==
[2025-04-04 11:00] VITALS: BP 138/82; PULSE 84; O2SAT 97
--- NOTE | 2025-04-04 11:00 | A.OFFVIS_ITS ---
Vital Signs 04/04/25 11:00 BP 138/82 Pulse 84 Pulse Oximetry (%) 97 Intake Visit Reasons: MAT Allergies No Known Allergies (No Known Allergies*) Allergy (Verified 04/04/25 11:01) HPI Comments Details: A 24-year-old male presents for a follow-up visit r/t CHRISTINE in sustained remission buprenorphine-naloxone 8-2 mg. Denies use of opiates, alcohol, and other substances. Reports continuing to attend mental health therapy sessions. Review of Systems Const All systems reviewed & are unremarkable except as noted in HPI and below Physical Exam Vital Signs: Last Vital Signs Pulse 84 04/04/25 11:00 BP 138/82 04/04/25 11:00 Pulse Ox 97 04/04/25 11:00 Const General: cooperative Assessment & Plan Assessment & Plan (1) Opioid use disorder, moderate, in sustained remission: Code(s): F11.21 - Opioid dependence, in remission Category: Medical Plan The plan of care is to continue with buprenorphine-naloxone 8-2 mg tablet daily. Follow-up in 2 months or sooner if needed. Medications: Refilled buprenorphine-naloxone 8-2 mg 1 tab sublingual DAILY 30 tabs 1RF 30 days Patient Instructions: - Continue with buprenorphine-naloxone as prescribed. - Follow-up in 2 months or sooner if needed. - Call with questions, concerns, or to report side effects/new onset of symptoms to [facility]. - The patient verbalized understanding and agreed with plan of care. Coding Level of Care Code Est Pt Level 3 (51718) Diagnoses Opioid use disorder, moderate, in sustained remission F11.21
== END 2025-04-04 11:26 | disposition home or self-care (01) ==
LOC: HO.HCC 10:52
PROVIDERS: PCP Internal Medicine Geriatric Medicine; Visit Provider Clinical Nurse Specialist Psychiatric/Mental Health
DX: F11.21 Opioid dependence, in remission (principal)
CPT/HCPCS: 99213

== ENCOUNTER → 2025-04-04 10:52 | Outpatient (BNVA) | payer MEDICAID, SELFPAY | PROVIDERS: PCP Internal Medicine Geriatric Medicine; Visit Provider Clinical Nurse Specialist Psychiatric/Mental Health | DX: F11.21 Opioid dependence, in remission (principal) | CPT/HCPCS: 99212 ==